=== PATIENT | male | born 1985 | race African-American/Black ===

== ENCOUNTER 2016-10-24 09:39 | Emergency (ER) | payer BC, OTHER ==
--- NOTE | 2016-10-24 11:16 | ED ---
General Adult HPI - General Chief complaint: Headache Stated complaint: head pain Time Seen by Provider: 10/24/16 10:46 Source: patient, RN notes reviewed Mode of arrival: ambulatory Limitations: no limitations - History of Present Illness Initial comments: Patient is a 31-year-old male who presents emergency room today with a chief complaint of a headache. He does admit that over the last week she's had increased nasal congestion. He states that he's had headaches 3 times now. He describes it as a throbbing type headache. States he usually lays down it goes away. States had it again yesterday after coming home from work. States he went to bed and woke up this morning still experiencing some mild throbbing with Bactroban and his woke up again and has felt better but still having slight headache. Patient does admit that he did have a postcoital headache once this week. States never had that in the past. Patient denies any other associated symptoms or complaints. Patient states not tried any medications for this. Patient denies any recent fever, chills, shortness of breath, chest pain, back pain, abdominal pain, nausea or vomiting, numbness or tingling, dysuria or hematuria, constipation or diarrhea, visual changes, or any other complaints. - Related Data Previous Rx's Medication Instructions Recorded Fluticasone Propionate [Flonase 1 - 2 spray EA NOSTRIL DAILY 5 Days 10/24/16 Allergy Relief] Allergies Allergy/AdvReac Type Severity Reaction Status Date / Time No Known Allergies Allergy Verified 10/24/16 11:12 Review of Systems ROS Statement: Those systems with pertinent positive or pertinent negative responses have been documented in the HPI. ROS Other: All systems not noted in ROS Statement are negative. Past Medical History Past Medical History: No Reported History History of Any Multi-Drug Resistant Organisms: None Reported Past Surgical History: No Surgical Hx Reported Past Psychological History: No Psychological Hx Reported Smoking Status: Current every day smoker Past Alcohol Use History: None Reported, Occasional Past Drug Use History: None Reported, Marijuana General Exam - General Exam Comments Initial Comments: General: The patient is awake and alert, in no distress, and does not appear acutely ill. Eye: Pupils are equal, round and reactive to light, extra-ocular movements are intact. No nystagmus. There is normal conjunctiva bilaterally. No signs of icterus. Ears, nose, mouth and throat: There are moist mucous membranes and no oral lesions. Mild tenderness over the frontal sinuses. Neck: The neck is supple, there is no tenderness or JVD. Cardiovascular: There is a regular rate and rhythm. No murmur, rub or gallop is appreciated. Respiratory: Lungs are clear to auscultation, respirations are non-labored, breath sounds are equal. No wheezes, stridor, rales, or rhonchi. Gastrointestinal: Soft, non-distended, non-tender abdomen without masses or organomegaly noted. There is no rebound or guarding present. No CVA tenderness. Bowel sounds are unremarkable. Musculoskeletal: Normal ROM, no tenderness. Strength 5/5. Sensation intact. Pulses equal bilaterally 2+. Neurological: A&O x 3. CN II-XII intact, There are no obvious motor or sensory deficits. Coordination appears grossly intact. Speech is normal. Skin: Skin is warm and dry and no rashes or lesions are noted. Psychiatric: Cooperative, appropriate mood & affect, normal judgment. Limitations: no limitations Course Vital Signs 10/24/16 10/24/16 10:08 10:19 Temperature 98.5 F 98.5 F Pulse Rate 64 64 Respiratory 20 20 Rate Blood Pressure 114/65 114/65 O2 Sat by Pulse 100 100 Oximetry Medical Decision Making - Medical Decision Making Options were discussed with patient with CT of the brain. At this time he does have some mild tenderness over the sinuses does have some nasal congestion. Was discussed about trying Flonase and using ibuprofen for pain. Patient states he cannot swallow pills. Advised to use [id number] children's ibuprofen with proper dosing. Patient will be started on Flonase. He is in agreement with this plan states he feels comfortable being discharged home with follow-up with family doctor return if any symptoms increase or worsen. Disposition Clinical Impression: Headache Disposition: HOME SELF-CARE Condition: Good Instructions: Acute Headache (ED) Additional Instructions: Please use medication as discussed. Please follow-up with family doctor in the next 2 days of symptoms have not improved. Please return to emergency room if the symptoms increase or worsen or for any other concerns. Prescriptions: Fluticasone Propionate [Flonase Allergy Relief] 1 - 2 spray EA NOSTRIL DAILY 5 Days Time of Disposition: 11:16
[2016-10-24 11:40] VITALS: BP 136/80; PULSE 51; RESP 15; TEMP 97.9
== END 2016-10-24 11:40 | disposition home or self-care (01) ==
LOC: EC 09:39
DX: R51 Headache (principal); R09.81 Nasal congestion; F17.200 Nicotine dependence, unspecified, uncomplicated
CPT/HCPCS: 99283

== ENCOUNTER 2016-10-29 02:34 | Emergency (ER) | payer BC, OTHER ==
[2016-10-29 02:42] VITALS: BP 141/88; PULSE 61; RESP 18; TEMP 98
[2016-10-29] MEDS ORDERED: METOCLOPRAMIDE 10 MG TAB PO STA (02:53)
[2016-10-29] MEDS ORDERED: IBUPROFEN 600 MG TAB PO STA (02:53)
[2016-10-29] MEDS ORDERED: diphenhydrAMINE 50 MG CAP PO STA (02:53)
--- NOTE | 2016-10-29 02:56 | ED ---
Headache HPI - General Chief Complaint: Headache Stated Complaint: Headache Time Seen by Provider: 10/29/16 02:50 Source: RN notes reviewed Mode of arrival: ambulatory Limitations: no limitations - History of Present Illness Initial Comments: [age] male presents to emergency department with a chief complaint of headache. Patient states his apartment headache that started tonight. Patient states he had to miss work to the headache. Patient states he did not take any medication for the headache at home. Patient denies any fever chills cough cold runny nose. Patient states is essentially light and no symptoms at this time. Patient states he was concerned due to the continued headache states that they should be evaluated. Patient does admit to a headache much like this in the past. Patient states he is not currently having any other symptoms at this time.Patient denies any recent fever, chills, shortness of breath, chest pain, back pain, abdominal pain, nausea vomiting, numbness or tingling, dysuria or hematuria, constipation or diarrhea, visual changes, or any other current symptoms. - Related Data Previous Rx's Medication Instructions Recorded Fluticasone Propionate [Flonase 1 - 2 spray EA NOSTRIL DAILY 5 Days 10/24/16 Allergy Relief] Allergies Allergy/AdvReac Type Severity Reaction Status Date / Time No Known Allergies Allergy Verified 10/24/16 11:12 Review of Systems ROS Statement: Those systems with pertinent positive or pertinent negative responses have been documented in the HPI. ROS Other: All systems not noted in ROS Statement are negative. Past Medical History Past Medical History: No Reported History History of Any Multi-Drug Resistant Organisms: None Reported Past Surgical History: No Surgical Hx Reported Past Psychological History: No Psychological Hx Reported Smoking Status: Current every day smoker Past Alcohol Use History: None Reported, Occasional Past Drug Use History: None Reported, Marijuana General Exam - General Exam Comments Initial Comments: General: The patient is awake and alert, in no distress, and does not appear acutely ill. Eye: Pupils are equal, round. extra-ocular movements are intact; there is normal conjunctiva bilaterally. No signs of icterus. Ears, nose, mouth and throat: There are moist mucous membranes and no oral lesions. Neck: The neck is supple, there is no tenderness. Cardiovascular: There is a regular rate and rhythm. No murmur, rub or gallop is appreciated. Respiratory: Lungs are clear to auscultation, respirations are non-labored, breath sounds are equal. No wheezes, stridor, rales, or rhonchi. Back: There is no tenderness to palpation in the midline. There is no obvious deformity. No rashes noted. Musculoskeletal: Normal ROM, no tenderness, There is no pedal edema. There is no calf tenderness or swelling. Sensation intact. Pulses equal bilaterally 2+. Neurological: CN II-XII intact, There are no obvious motor or sensory deficits. Coordination appears grossly intact. Speech is normal. Skin: Skin is warm and dry and no rashes or lesions are noted. Psychiatric: Cooperative, appropriate mood & affect, normal judgment. Limitations: no limitations Course Vital Signs 10/29/16 02:39 Temperature 98.0 F Pulse Rate 61 Respiratory 18 Rate Blood Pressure 141/88 O2 Sat by Pulse 100 Oximetry - Reevaluation(s) Reevaluation #1: 10/29/16 03:24 Patient states that he is feeling better at this time. Medical Decision Making - Medical Decision Making 31-year-old male presents emergency Department chief complaint of headache. pt given PO Medication patient tolerated. Patient does have improvement to his symptoms. At this time we discussed continuing home care. We discussed follow- up and return parameters. We discussed outpatient stated he understood the plan. All questions have been answered. He will be discharged. Disposition Clinical Impression: Headache Disposition: HOME SELF-CARE Condition: Stable Instructions: Acute Headache (ED) Additional Instructions: Please use medication as discussed. Please follow up with family doctor if symptoms have not improved over the next two days. Please return to the emergency room if your symptoms increase or worsen or for any other concerns. Referrals: Yo Tejeda MD [Primary Care Provider] - 1-2 days Time of Disposition: 03:24
[2016-10-29] MEDS ORDERED: ACETAMINOPHEN TAB 500 MG TAB PO STA (02:57)
== END 2016-10-29 03:28 | disposition home or self-care (01) ==
LOC: EC 02:34
DX: R51 Headache (principal); F17.200 Nicotine dependence, unspecified, uncomplicated
CPT/HCPCS: 99283

== ENCOUNTER 2017-09-15 23:29 | Emergency (ER) | payer BC, OTHER ==
[2017-09-15 23:34] VITALS: BP 135/69; PULSE 75; RESP 18; TEMP 98.5
--- NOTE | 2017-09-15 23:49 | ED ---
Nausea/Vomiting/Diarrhea HPI - General Chief complaint: Nausea/Vomiting/Diarrhea Stated complaint: Nausea/adb pain Time Seen by Provider: 09/15/17 23:36 Source: patient Mode of arrival: ambulatory Limitations: no limitations - History of Present Illness Initial comments: Patient presents with 1 episode of diarrhea that he states started after getting to work tonight. Pt states "I wasn't about to stand there on the line all-night running to the bathroom with diarrhea, so I told my boss and leaving" . Pt denies abd pain, fevers, chill, vomiting, urinary symptoms. Patient states she's had mild nausea. Patient denies suspicious food intake, denies recent travel, denies water exposure, denies recent antibiotics. Pt denies blood in stools. MD complaint: nausea, diarrhea - Related Data Previous Rx's Medication Instructions Recorded Ondansetron Odt [Zofran Odt] 4 mg PO Q8HR PRN #10 tab 09/15/17 Allergies Allergy/AdvReac Type Severity Reaction Status Date / Time No Known Allergies Allergy Verified 09/15/17 23:38 Review of Systems ROS Statement: Those systems with pertinent positive or pertinent negative responses have been documented in the HPI. Constitutional: Denies: fever, chills, weakness ENT: Denies: throat pain, congestion Respiratory: Denies: cough Cardiovascular: Denies: chest pain Endocrine: Denies: fatigue Gastrointestinal: Reports: nausea, diarrhea. Denies: abdominal pain, vomiting, constipation, hematemesis, melena, hematochezia Genitourinary: Denies: urgency, dysuria, frequency, hematuria Musculoskeletal: Denies: back pain, joint swelling, arthralgia, myalgia Skin: Denies: rash Neurological: Denies: headache Past Medical History Past Medical History: No Reported History History of Any Multi-Drug Resistant Organisms: None Reported Past Surgical History: No Surgical Hx Reported Past Psychological History: No Psychological Hx Reported Smoking Status: Former smoker Past Alcohol Use History: Occasional Past Drug Use History: Marijuana General Exam - General Exam Comments Initial Comments: Sitting up on bed legs crossed x-ray on phone. Well-appearing. No acute distress. Conversing normally. Calm, pleasant. Limitations: no limitations General appearance: alert, in no apparent distress Head exam: Present: atraumatic, normocephalic Eye exam: Present: normal appearance, PERRL, EOMI ENT exam: Present: normal oropharynx, mucous membranes moist Neck exam: Present: normal inspection Respiratory exam: Present: normal lung sounds bilaterally. Absent: respiratory distress, wheezes, rales, rhonchi, stridor Cardiovascular Exam: Present: regular rate, normal rhythm GI/Abdominal exam: Present: soft, normal bowel sounds. Absent: distended, tenderness, guarding, rebound, rigid Extremities exam: Present: normal inspection Neurological exam: Present: alert, oriented X3 Psychiatric exam: Present: normal affect, normal mood Skin exam: Present: warm, dry, intact, normal color. Absent: rash Course Vital Signs 09/15/17 23:32 Temperature 98.5 F Pulse Rate 75 Respiratory 18 Rate Blood Pressure 135/69 O2 Sat by Pulse 100 Oximetry Medical Decision Making - Medical Decision Making Patient with one episode of diarrhea when he got to work. States he left because he was afraid he had more, however he has not had any recurrence of diarrhea. Pt denies abdominal pain. No blood in stools. Discussed early onset of symptoms, need to continue to monitor. Discussed with patient unlikely to find any lab abnormalities after such a short course of illness. Patient to follow primary care physician for reevaluation. Return to ER for new or worsening symptoms including abdominal pain, fevers, not tolerating oral intake. Oral hydration during illness discussed. Patient feels comfortable not pursuing any further workup at this time. This comfortable monitoring symptoms at home. We'll give prescription of Zofran for nausea. Work note given for patient. He is very happy with plan of care. He was comfortable being discharged home. Disposition Clinical Impression: Diarrhea Disposition: HOME SELF-CARE Condition: Good Instructions: Acute Nausea and Vomiting (ED), Acute Diarrhea (ED) Additional Instructions: Follow-up with her primary care physician one to 2 days. Return to ER for new or worsening symptoms including abdominal pain, fevers, not tolerating oral intake. Prescriptions: Ondansetron Odt [Zofran Odt] 4 mg PO Q8HR PRN #10 tab PRN Reason: nausea Referrals: Yo Tejeda MD [Primary Care Provider] - 1-2 days
== END 2017-09-15 23:58 | disposition home or self-care (01) ==
LOC: EC 23:29
DX: R19.7 Diarrhea, unspecified (principal); R11.0 Nausea; Z87.891 Personal history of nicotine dependence
CPT/HCPCS: 99283

== ENCOUNTER 2018-07-31 23:02 | Emergency (ER) | payer OTHER ==
[2018-07-31] MEDS ORDERED: SODIUM CHLORIDE 0.9% 1,000 ML IV STA (23:45)
[2018-07-31] MEDS ORDERED: ONDANSETRON 4 MG/2 ML VIAL IVP STA (23:45)
--- NOTE | 2018-07-31 23:45 | ED ---
Abdominal Pain HPI - General Chief Complaint: Abdominal Pain Stated Complaint: Vomiting Time Seen by Provider: 07/31/18 23:44 Source: patient Mode of arrival: ambulatory Limitations: no limitations - History of Present Illness Initial Comments: Jaylen is a previously healthy 33-year-old male who presents the emergency department today for evaluation of 2 days of epigastric cramping nausea and vomiting. Patient reports he thinks he ate something bad a couple of days ago. He reports he's had persistent nausea and decreased appetite for the past 2 days. He reports he's had intermittent episodes of nonbloody nonbilious emesis. He reports an episode of emesis on his way to work today and his fiscal manager told him he should come be evaluated. Patient reports he has been able to eat and drink, though not nearly as much as usual. He does report trying to eat dinner this evening and eating some pork chops and rice but reports he was only able tolerate small portions and continued to feel nauseated. Patient has no history of any GI pathology. No history of ulcers or irritable or inflammatory bowel disease. He has history of gallstones or pancreatitis. He denies any recent alcohol ingestions. Any recent trauma. He denies any previous surgeries. - Related Data Previous Rx's Medication Instructions Recorded Ondansetron Odt [Zofran Odt] 4 mg PO Q8HR PRN #10 tab 09/15/17 Allergies Allergy/AdvReac Type Severity Reaction Status Date / Time No Known Allergies Allergy Verified 07/31/18 23:37 Review of Systems ROS Statement: Those systems with pertinent positive or pertinent negative responses have been documented in the HPI. ROS Other: All systems not noted in ROS Statement are negative. Past Medical History Past Medical History: No Reported History History of Any Multi-Drug Resistant Organisms: None Reported Past Surgical History: No Surgical Hx Reported Past Psychological History: No Psychological Hx Reported Smoking Status: Current every day smoker Past Alcohol Use History: Occasional Past Drug Use History: Marijuana General Exam - General Exam Comments Initial Comments: Physical Exam GENERAL: Patient is well-developed and well-nourished. Patient is nontoxic and well- hydrated and is in no distress. HENT: Normocephalic, Atraumatic. EYES: PERRL, EOMI PULMONARY: Unlabored respirations. No audible rales rhonchi or wheezing was noted. CARDIOVASCULAR: There is a regular rate and rhythm without any murmurs gallops or rubs. ABDOMEN: Soft and nontender with normal bowel sounds. SKIN: Skin is clear with no lesions or rashes and otherwise unremarkable. : Deferred NEUROLOGIC: Patient is alert and oriented x3. Moving all extremities spontaneously MUSCULOSKELETAL: Normal extremities with adequate strength and full range of motion. No lower extremity swelling or edema. No calf tenderness. PSYCHIATRIC: Normal psychiatric evaluation. Limitations: no limitations Limitations: no limitations Course Vital Signs 07/31/18 08/01/18 23:35 00:07 Temperature 99.1 F 98.1 F Pulse Rate 73 63 Respiratory 18 16 Rate Blood Pressure 114/59 113/71 O2 Sat by Pulse 98 98 Oximetry Medical Decision Making - Medical Decision Making The patient was seen and evaluated, history is obtained from the patient and review of medical records Very well-appearing hydrated 33-year-old gentleman 2 days of nausea and crampy epigastric abdominal pain Labs and IV fluids and Zofran were ordered Labs were unremarkable Patient resting comfortably throughout his ED stay. At this time if the patient stable for discharge home. Zofran ODT will be provided. Return parameters discussed all questions pertaining care answered patient discharged home in stable condition. - Lab Data Result diagrams: 07/31/18 00:01 07/31/18 00:01 Lab Results 07/31/18 07/31/18 07/31/18 Range/Units 00:01 00:01 23:39 WBC 14.0 H (3.8-10.6) k/uL RBC 5.59 (4.30-5.90) m/uL Hgb 15.0 (13.0-17.5) gm/dL Hct 45.2 (39.0-53.0) % MCV 80.8 (80.0-100.0) fL MCH 26.8 (25.0-35.0) pg MCHC 33.2 (31.0-37.0) g/dL RDW 12.5 (11.5-15.5) % Plt Count 220 (150-450) k/uL Neutrophils % 80 % Lymphocytes % 13 % Monocytes % 4 % Eosinophils % 2 % Basophils % 0 % Neutrophils # 11.2 H (1.3-7.7) k/uL Lymphocytes # 1.8 (1.0-4.8) k/uL Monocytes # 0.6 (0-1.0) k/uL Eosinophils # 0.2 (0-0.7) k/uL Basophils # 0.1 (0-0.2) k/uL Sodium 140 (137-145) mmol/L Potassium 4.1 (3.5-5.1) mmol/L Chloride 103 (98-107) mmol/L Carbon Dioxide 29 (22-30) mmol/L Anion Gap 8 mmol/L BUN 15 (9-20) mg/dL Creatinine 1.01 (0.66-1.25) mg/dL Est GFR (CKD-EPI)AfAm >90 (>60 ml/min/1.73 sqM) Est GFR (CKD-EPI)NonAf >90 (>60 ml/min/1.73 sqM) Glucose 99 (74-99) mg/dL Calcium 9.3 (8.4-10.2) mg/dL Total Bilirubin 0.5 (0.2-1.3) mg/dL AST 17 (17-59) U/L ALT 19 L (21-72) U/L Alkaline Phosphatase 59 (38-126) U/L Total Protein 7.5 (6.3-8.2) g/dL Albumin 4.2 (3.5-5.0) g/dL Amylase 53 (30-110) U/L Lipase 114 (23-300) U/L Urine Color Yellow Urine Appearance Clear (Clear) Urine pH 6.5 (5.0-8.0) Ur Specific [place] 1.014 (1.001-1.035) Urine Protein Negative (Negative) Urine Glucose (UA) Negative (Negative) Urine Ketones Negative (Negative) Urine Blood Negative (Negative) Urine Nitrite Negative (Negative) Urine Bilirubin Negative (Negative) Urine Urobilinogen 8.0 (<2.0) mg/dL Ur Leukocyte Esterase Trace H (Negative) Urine RBC 1 (0-5) /hpf Urine WBC 1 (0-5) /hpf Ur Squamous Epith Cells <1 (0-4) /hpf Urine Mucus Rare H (None) /hpf Disposition Clinical Impression: Nausea & vomiting Disposition: HOME SELF-CARE Condition: Good Instructions: Acute Nausea and Vomiting (ED) Is patient prescribed a controlled substance at d/c from ED?: No Referrals: Yo Tejeda MD [Primary Care Provider] - 1-2 days
[2018-08-01 00:01] LABS: Appearance,Urine Clear (Clear); Bilirubin,Urine Negative (Negative); Blood,Urine Negative (Negative); Color,Urine Yellow; Glucose,Urine (UA) Negative (Negative); Ketones,Urine Negative (Negative); Leukocyte Esterase,Urine Trace (Negative); Mucus,Urine Rare /hpf; Nitrite,Urine Negative (Negative); PH, Urine 6.5 (5.0-8.0); Protein,Urine Negative (Negative); RBC,Urine 1 /hpf (0-5); Specific Gravity,Urine 1.014 (1.001-1.035); Squamous Epithelial Cell,Urine <1 /hpf (0-4); WBC,Urine 1 /hpf (0-5)
[2018-08-01 00:08] VITALS: TEMP 98.1
[2018-08-01 00:13] LABS: Basophils # (A) 0.1 k/uL (0-0.2); Basophils % (A) 0 %; Eosinophils # (A) 0.2 k/uL (0-0.7); Eosinophils % (A) 2 %; HCT 45.2 % (39.0-53.0); Lymphocytes # (A) 1.8 k/uL (1.0-4.8); Lymphocytes % (A) 13 %; MCH 26.8 pg (25.0-35.0); MCHC 33.2 g/dL (31.0-37.0); MCV 80.8 fL (80.0-100.0); Mean Platelet Volume 7.4; Monocytes # (A) 0.6 k/uL (0-1.0); Monocytes % (A) 4 %; Neutrophils # (A) 11.2 k/uL (1.3-7.7); Neutrophils % (A) 80 %; Platelet Count 220 k/uL (150-450); RBC 5.59 m/uL (4.30-5.90); RDW 12.5 % (11.5-15.5)
[2018-08-01 00:22] LABS: ALT 19 U/L (21-72); AST 17 U/L (17-59); Albumin 4.2 g/dL (3.5-5.0); Alkaline Phosphatase 59 U/L (38-126); Amylase 53 U/L (30-110); Anion Gap 8 mmol/L; Blood Urea Nitrogen 15 mg/dL (9-20); Calcium 9.3 mg/dL (8.4-10.2); Carbon Dioxide 29 mmol/L (22-30); Chloride 103 mmol/L (98-107); Glucose 99 mg/dL (74-99); Lipase 114 U/L (23-300); Potassium 4.1 mmol/L (3.5-5.1); Sodium 140 mmol/L (137-145); Total Bilirubin 0.5 mg/dL (0.2-1.3); Total Protein 7.5 g/dL (6.3-8.2)
--- NOTE | 2018-08-01 00:37 | XR ---
EXAMINATION TYPE: XR KUB DATE OF EXAM: 08/01/2018 COMPARISON: NONE HISTORY: Abdominal pain TECHNIQUE: 2 views upright FINDINGS: There is no sign of intestinal obstruction or pneumoperitoneum. Fecal pattern is normal. Zaira ng bases are clear. There are no pathologic calcifications. IMPRESSION: Nonacute abdomen.
[2018-08-01] MEDS ORDERED: ONDANSETRON 4 MG ODT STARTER PACK 2 TAB BTL PO STA (00:40)
[2018-08-01 01:36] VITALS: BP 117/73; PULSE 73; RESP 18
== END 2018-08-01 01:35 | disposition home or self-care (01) ==
LOC: EC 23:02
DX: R11.2 Nausea with vomiting, unspecified (principal); R10.13 Epigastric pain; F17.200 Nicotine dependence, unspecified, uncomplicated; Z87.19 Personal history of other diseases of the digestive system
CPT/HCPCS: 36415; 80053; 82150; 83690; 85025; 81001; 74018; 99284; 96374; 96361; J2405; S0119

== ENCOUNTER → 2018-09-01 | Outpatient (CLI) | payer BC ==
[2018-09-01 14:37] VITALS: BP 115/68; PULSE 108; RESP 16; TEMP 98.4
== END | disposition home or self-care (01) ==
LOC: PROCWHC3 14:22
PROVIDERS: ATTEND Surgery Plastic and Reconstructive Surgery
DX: K63.1 Perforation of intestine (nontraumatic) (principal)
CPT/HCPCS: 99213

== ENCOUNTER → 2018-11-17 | Outpatient (CLI) | payer BC ==
[2018-11-17 10:42] LABS: HCT 46.5 % (39.0-53.0); HGB 15.4 gm/dL (13.0-17.5); MCH 27.6 pg (25.0-35.0); MCHC 33.2 g/dL (31.0-37.0); MCV 83.2 fL (80.0-100.0); Mean Platelet Volume 7.8; Platelet Count 218 k/uL (150-450); RBC 5.59 m/uL (4.30-5.90); RDW 13.9 % (11.5-15.5); WBC 7.3 k/uL (3.8-10.6)
[2018-11-17 12:37] LABS: Erythrocyte Sedimentation Rate 4 mm/hr (0-15)
[2018-11-17 17:53] LABS: Albumin 4.4 g/dL (3.80-4.90); Anion Gap 2.1 mmol/L (4.00-12.00); C Reactive Protein 1.7 mg/dL (0.0-0.8); Calcium 9.5 mg/dL (8.7-10.3); Carbon Dioxide 33.9 mmol/L (21.6-31.8); Globulin 2.2 g/dL (1.6-3.3); Potassium 4.4 mmol/L (3.5-5.5); Total Bilirubin 0.3 mg/dL (0.3-1.2); Total Protein 6.6 g/dL (6.2-8.2)
[2018-11-17 18:41] LABS: Folate, Serum 6.1 ng/mL
[2018-11-17 18:49] LABS: Vitamin D 25 Hydroxy 9.2 ng/mL (30.0-100.0)
[2018-11-17 19:22] LABS: Vitamin B12 >4000.0 pg/mL (211-911)
== END | disposition home or self-care (01) ==
LOC: LABWHC1 09:08
PROVIDERS: ATTEND Internal Medicine
DX: K50.812 Crohn's disease of both small and large intestine with intestinal obstruction (principal)
CPT/HCPCS: 36415; 80053; 82306; 82607; 82746; 85027; 85652; 86140

== ENCOUNTER → 2018-12-28 | Day surgery (SDC) | payer BC ==
[2018-12-24 11:31] VITALS: BMI 29.0
--- NOTE | 2018-12-27 14:28 | P.GSHP ---
History of Present Illness H&P Date: 12/28/18 CHIEF COMPLAINT: Crohn's disease of the colon HISTORY OF PRESENT ILLNESS: The patient is a 33-year-old male who presents for Crohn's disease of the colon. Lower endoscopy was offered for further evaluation and management. PAST MEDICAL HISTORY: Please see list. PAST SURGICAL HISTORY: Please see list. MEDICATIONS: Please see list. ALLERGIES: Please see list. SOCIAL HISTORY: Takes medicinal marijuana FAMILY HISTORY: Has Crohn disease or ulcerative colitis. REVIEW OF ORGAN SYSTEMS: CONSTITUTIONAL: No reports of fevers or chills. PHYSICAL EXAM: VITAL SIGNS: Stable GENERAL: Well-developed pleasant in no acute distress. HEENT: No scleral icterus. Extraocular movements grossly intact. Moist buccal mucosa. NECK: Supple without lymphadenopathy. CHEST: Unlabored respirations. Equal bilateral excursions. CARDIOVASCULAR: Regular rate and rhythm. Distal 2+ pulses. ABDOMEN: Soft, nontender, nondistended. MUSCULOSKELETAL: No clubbing, cyanosis, or edema. ASSESSMENT: 1. Crohn's disease of the colon PLAN: 1. 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 pt stated has never been able to take pills even in applesauce or pudding even if crushed" crohns disease, colostomy History of Any Multi-Drug Resistant Organisms: None Reported Past Surgical History: Bowel Resection Additional Past Surgical History / Comment(s): colostomy Past Anesthesia/Blood Transfusion Reactions: No Reported Reaction Additional Past Anesthesia/Blood Transfusion Reaction / Comment(s): pt stated has never had anesthesia Smoking Status: Never smoker - Past Family History Mother Family Medical History: No Reported History Father Additional Family Medical History / Comment(s): djd-hip Medications and Allergies Home Medications Medication Instructions Recorded Confirmed Type Cholecalciferol (Vitamin D3) 1,000 unit PO DAILY 12/03/18 12/24/18 History [Vitamin D3] Allergies Allergy/AdvReac Type Severity Reaction Status Date / Time No Known Allergies Allergy Verified 12/24/18 11:22
[~2018-12-28] MED LIST: LACTATED RINGERS 1,000 ML IV SCH; LIDOCAINE 1% 20 ML VIAL (10MG/ML) FOR IV START SQ ONE; LIDOCAINE 1% INJ 10MG/ML (20 ML MDV) ONE; PROPOFOL 10 MG/ML 20 ML VIAL IV ONE
[2018-12-28 13:38] VITALS: TEMP 97.6
--- NOTE | 2018-12-28 15:16 | P.PCN ---
Date of Procedure: 12/28/18 Description of Procedure: PREOPERATIVE DIAGNOSIS: Crohn's disease with perforated terminal ileum and colon Descending colostomy status POSTOPERATIVE DIAGNOSIS: Crohn's disease with perforated terminal ileum and colon Descending colostomy status OPERATION: Flexible sigmoidoscopy SURGEON: Maryellen Hoff MD. ANESTHESIA: MAC. INDICATIONS: The patient is a 33-year-old male who presented with peritonitis included perforated small bowel and colon requiring a colostomy. No full prior colonoscopy had been performed for recent diagnosis of Crohn's disease. Colonoscopy was advised. Benefits and risks were described and informed consent was obtained. DESCRIPTION OF PROCEDURE: The patient was transitioned in the left lateral decubitus position where along the anus, no palpable tumors were identified. The Olympus colonoscope was advanced via the rectum to the devitalized rectal stump at 20 cm. The scope was removed. Mild colitis was identified. Next the patient was laid supine. The osteotomy appliance was opened. A digital exam of the stoma demonstrated solid stool at which point the col onoscopy portion was discontinued. The patient had tolerated the procedure well. Withdrawal time was over 6 minutes. FINDINGS: Rectal stump 20 cm with mild colitis. Solid stool along the colon for which colonoscopy discontinued. RECOMMENDATIONS: Will need completion colonoscopy prior to reversal of colostomy. Plan - Discharge Summary Discharge Rx Participant: Yes New Discharge Prescriptions: No Action Cholecalciferol (Vitamin D3) [Vitamin D3] 1,000 unit PO DAILY Discharge Medication List Cholecalciferol (Vitamin D3) [Vitamin D3] 1,000 unit PO DAILY 12/03/18 [History] Follow up Appointment(s)/Referral(s): Maryellen Hoff MD [STAFF PHYSICIAN] - 01/12/19 Patient Instructions/Handouts: Colostomy Care (DC) Activity/Diet/Wound Care/Special Instructions: Will need full Suprep for colonoscopy and re-schedule Discharge Disposition: HOME SELF-CARE
[2018-12-28 15:17] VITALS: PULSE 75
[2018-12-28 15:37] VITALS: BP 122/68; RESP 20
== END | disposition home or self-care (01) ==
LOC: ORWHC2ENDO 13:08
PROVIDERS: ATTEND Surgery Plastic and Reconstructive Surgery
DX: K50.90 Crohn's disease, unspecified, without complications (principal); Z90.49 Acquired absence of other specified parts of digestive tract
CPT/HCPCS: 45330; J2001; J2704; 44388

== ENCOUNTER → 2019-02-22 | Outpatient (CLI) | payer BC ==
[2019-02-22 12:20] LABS: HCT 44.9 % (39.0-53.0); MCH 28.5 pg (25.0-35.0); MCHC 33.5 g/dL (31.0-37.0); MCV 85.1 fL (80.0-100.0); Mean Platelet Volume 7.8; Platelet Count 223 k/uL (150-450); RBC 5.27 m/uL (4.30-5.90); RDW 14.5 % (11.5-15.5); WBC 7.3 k/uL (3.8-10.6)
[2019-02-22 12:44] LABS: Potassium 4.1 mmol/L (3.5-5.1)
== END | disposition home or self-care (01) ==
LOC: LABWHC1 10:56
PROVIDERS: ATTEND Surgery Plastic and Reconstructive Surgery
DX: Z01.812 Encounter for preprocedural laboratory examination (principal)
CPT/HCPCS: 80051; 85027

== ENCOUNTER 2019-02-25 06:49 | Inpatient (IN) | payer BC ==
[~2019-02-25 06:49] MED LIST changes: -LACTATED RINGERS 1,000 ML IV SCH; +LIDOCAINE 1% 20 ML VIAL (10MG/ML) FOR IV START INTRADERMA PRN; -LIDOCAINE 1% 20 ML VIAL (10MG/ML) FOR IV START SQ ONE; -LIDOCAINE 1% INJ 10MG/ML (20 ML MDV) ONE; -PROPOFOL 10 MG/ML 20 ML VIAL IV ONE
[2019-02-25] MEDS: LACTATED RINGERS 1,000 ML IV SCH (07:14)
[2019-02-25] MEDS ORDERED: LIDOCAINE 1% INJ 10MG/ML (20 ML MDV) ONE (07:24)
[2019-02-25] MEDS ORDERED: PROPOFOL 10 MG/ML 20 ML VIAL IV ONE (07:24)
--- NOTE | 2019-02-25 07:27 | P.GSHP ---
History of Present Illness H&P Date: 02/25/19 CHIEF COMPLAINT: Crohn's disease HISTORY OF PRESENT ILLNESS: The patient is a 34-year-old male who presents with history of Crohn's disease. Lower endoscopy was offered for further evaluation and management. PAST MEDICAL HISTORY: Please see list. PAST SURGICAL HISTORY: Please see list. MEDICATIONS: Please see list. ALLERGIES: Please see list. SOCIAL HISTORY: No illicit drug use FAMILY HISTORY: No reports of Crohn disease or ulcerative colitis. REVIEW OF ORGAN SYSTEMS: CONSTITUTIONAL: No reports of fevers or chills. PHYSICAL EXAM: VITAL SIGNS: Stable GENERAL: Well-developed pleasant male in no acute distress. HEENT: No scleral icterus. Extraocular movements grossly intact. Moist buccal mucosa. NECK: Supple without lymphadenopathy. CHEST: Unlabored respirations. Equal bilateral excursions. CARDIOVASCULAR: Regular rate and rhythm. Distal 2+ pulses. ABDOMEN: Soft, nontender, nondistended. Ostomy pink, patent and functioning MUSCULOSKELETAL: No clubbing, cyanosis, or edema. ASSESSMENT: 1. Crohn's disease with small bowel and large bowel perforation status post ostomy PLAN: 1. 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 2 children. Tobacco use. Works for a local [employer]. No experience. No international travel. Did not relate to pets in the home - Past Family History Mother Family Medical History: No Reported History Father Additional Family Medical History / Comment(s): djd-hip Medications and Allergies Home Medications Medication Instructions Recorded Confirmed Type Cholecalciferol (Vitamin D3) 1,000 unit PO DAILY 12/03/18 02/25/19 History [Vitamin D3] Allergies Allergy/AdvReac Type Severity Reaction Status Date / Time No Known Allergies Allergy Verified 02/19/19 09:56 Surgical - Exam Vital Signs Temp Pulse Resp BP Pulse Ox 97.6 F 64 17 126/80 100 02/25/19 07:08 02/25/19 07:08 02/25/19 07:08 02/25/19 07:08 02/25/19 07:08
--- NOTE | 2019-02-25 07:51 | P.PCN ---
Date of Procedure: 02/25/19 Description of Procedure: PREOPERATIVE DIAGNOSIS: History of complicated perforated Crohn's disease with colostomy creation and small bowel resection POSTOPERATIVE DIAGNOSIS: History of complicated perforated Crohn's disease with colostomy creation and small bowel resection OPERATION: Colonoscopy through descending colostomy to ileocolic anastomosis with cold forceps biopsies of the ileum Flexible sigmoidoscopy for devitalized rectum SURGEON: Maryellen Hoff MD. ANESTHESIA: MAC. INDICATIONS: The patient is a 34-year-old male who presents with history of previous perforated Crohn's disease of the colon and intestine with small bowel resection and colostomy creation over 7 months ago. He pre sents for assessment of his Crohn's prior to colostomy reversal. Benefits and risks were described and informed consent was obtained. DESCRIPTION OF PROCEDURE: The patient had undergone Suprep. He had been brought into the operating room and laid supine. The stoma appliance was removed. An Olympus colonoscope was advanced through the descending colostomy to the ileocolic anastomosis. The prep was fair with residual liquid stool. Inflammation of the ileum was identified with cold biopsy forceps obtained. No scattered diverticulosis was encountered. No colonic polyps were found. No evidence of focal colitis was found. The colon was desufflated. The patient was transitioned in the left lateral decubitus position where along the anus, no palpable tumors were identified. Residual mucus stool was evacuated. The scope was advanced to the resection of the rectum was terminated at 20 cm from the anal verge. The scope was removed with desufflation of the GI tract. The patient had tolerated the procedure well. Withdrawal time was over 6 minutes. FINDINGS: Aronchik preparation quality scale 3 (1-5) No arteriovenous malformations. No adenomatous polyps. Inflammation of the ileum was identified with cold biopsy forceps obtained. No scattered diverticulosis was encountered. No colonic polyps were found. Rectal stump length of 20 cm from the anal verge RECOMMENDATIONS: May proceed with colostomy reversal however with additional colonic prep
[2019-02-25] MEDS ORDERED: Antibiotics per Pharmacy 1 EACH MISC MISCELLANE PRN (07:52)
[2019-02-25 08:40] LABS: Glucose,Whole Blood 85 mg/dL (75-99)
[2019-02-25] MEDS ORDERED: POLYETHYLENE GLYCOL LYTES SOLN 4,000 ML SOLN.RECON PO ONE (10:00)
[2019-02-25 12:13] LABS: Glucose,Whole Blood 84 mg/dL (75-99)
[2019-02-25] MEDS: D5-0.45% NACL WITH KCL 20MEQ/L 1,000 ML IV SCH (13:25)
[2019-02-25] MEDS: NEOMYCIN 500 MG TAB PO SCH ×3 (14:43→23:54)
[2019-02-25] MEDS: metroNIDAZOLE 500 MG TAB PO SCH ×3 (14:45→23:31)
[2019-02-25] MEDS ORDERED: TEMAZEPAM 15 MG CAP PO ONE (21:00)
[2019-02-26] MEDS ORDERED: metroNIDAZOLE-NS PMX 500 MG in SALINE 1 100ML.BAG IVPB ONE (05:00)
[2019-02-26] MEDS: D5-0.45% NACL WITH KCL 20MEQ/L 1,000 ML IV SCH ×3 (05:22→15:09)
[2019-02-26] MEDS ORDERED: ACETAMINOPHEN TAB 500 MG TAB PO ONE (06:00)
[2019-02-26] MEDS ORDERED: ALVIMOPAN 12 MG CAPSULE PO ONE (06:00)
[2019-02-26 07:15] LABS: Basophils % (A) 1 %; Eosinophils # (A) 0.2 k/uL (0-0.7); Eosinophils % (A) 2 %; HCT 46.4 % (39.0-53.0); HGB 15.1 gm/dL (13.0-17.5); Lymphocytes # (A) 1.4 k/uL (1.0-4.8); Lymphocytes % (A) 18 %; MCH 27.6 pg (25.0-35.0); MCHC 32.6 g/dL (31.0-37.0); MCV 84.7 fL (80.0-100.0); Mean Platelet Volume 7.5; Monocytes # (A) 0.6 k/uL (0-1.0); Monocytes % (A) 7 %; Neutrophils # (A) 5.7 k/uL (1.3-7.7); Neutrophils % (A) 72 %; Platelet Count 209 k/uL (150-450); RBC 5.48 m/uL (4.30-5.90); RDW 13.1 % (11.5-15.5)
[2019-02-26 07:38] LABS: ALT 20 U/L (21-72); AST 20 U/L (17-59); African American GFR (CKD) >90 (>60 ml/min/1.73 sqM); Alkaline Phosphatase 55 U/L (38-126); Anion Gap 6 mmol/L; Blood Urea Nitrogen 8 mg/dL (9-20); Calcium 9.3 mg/dL (8.4-10.2); Carbon Dioxide 29 mmol/L (22-30); Chloride 104 mmol/L (98-107); Glucose 102 mg/dL (74-99); Potassium 4.4 mmol/L (3.5-5.1); Sodium 139 mmol/L (137-145); Total Bilirubin 1.6 mg/dL (0.2-1.3); Total Protein 6.8 g/dL (6.3-8.2)
[2019-02-26] MEDS: LACTATED RINGERS 1,000 ML IV SCH (08:12)
[2019-02-26] MEDS: HEPARIN SODIUM,PORCINE 5,000 UNIT/ML 1 ML VIAL SQ ONE ×2 (09:14→12:12)
[2019-02-26] MEDS ORDERED: IV FLUID CONTINUATION 1,000 ML IV ONE (11:25)
[2019-02-26] MEDS ORDERED: MIDAZOLAM (PF) 2 MG/2 ML VIAL IV ONE (11:49)
[2019-02-26] MEDS ORDERED: fentaNYL (PF) 50 MCG/ML 2 ML AMP IV ONE (11:49)
[2019-02-26] MEDS ORDERED: DEXAMETHASONE SOD PHOSPHATE 10 MG/ML 1 ML VIAL IV ONE (12:05)
[2019-02-26] MEDS ORDERED: ONDANSETRON 4 MG/2 ML VIAL IVP ONE (12:05)
[2019-02-26] MEDS ORDERED: ACETAMINOPHEN IV (For NPO) 1,000 MG/100 ML VIAL IVPB ONE (12:41)
[2019-02-26] MEDS ORDERED: PROPOFOL 10 MG/ML 20 ML VIAL IV ONE (13:34)
[2019-02-26] MEDS ORDERED: LIDOCAINE 1% INJ 10MG/ML (20 ML MDV) ONE (13:34)
[2019-02-26] MEDS ORDERED: ROCURONIUM BROMIDE 10 MG/ML 10 ML VIAL IV ONE (13:34)
[2019-02-26] MEDS ORDERED: fentaNYL (PF) 50 MCG/ML 2 ML AMP ONE (13:34)
[2019-02-26] MEDS ORDERED: GLYCOPYRROLATE 0.2 MG/ML 2 ML VIAL ONE (13:34)
[2019-02-26] MEDS ORDERED: MIDAZOLAM 2 MG/2 ML VIAL ONE (13:34)
[2019-02-26] MEDS ORDERED: NEOSTIGMINE 1 MG/ML 10 ML VIAL ONE (13:34)
[2019-02-26] MEDS ORDERED: ROPIVACAINE 250 MG, HYDROMORPHONE (PF) 5 MG in SODIUM CHLORIDE 0.9% 200 ML EPIDURAL PRN (14:14)
[2019-02-26] MEDS ORDERED: NALOXONE 0.4 MG/ML 1 ML VIAL IV PRN (14:14)
[2019-02-26] MEDS ORDERED: LACTATED RINGERS 1,000 ML IV ONE ×2 (14:19→17:18)
--- NOTE | 2019-02-26 18:14 | P.HPADDEND ---
H&P Addendum H&P Addendum Date: 02/26/19 Patient presented to the hospital with history of ostomy secondary to multiple perforated small bowel included large bowel from Crohn's disease over 6 months ago. He had a lower endoscopy yesterday to evaluate the rectum and colon prior to reversal. Moderate stool was still found hence additional bowel prep was performed. Today he is doing well and completed additional bowel prep. He will undergo colostomy reversal today. All benefits and risks including perioperative and postoperative care described to him and his family as well. Patient wished to proceed with colostomy reversal.
--- NOTE | 2019-02-26 18:23 | P.OP ---
Date of Procedure: 02/26/19 Description of Procedure: Date of Procedure: 02/26/19 Preoperative Diagnosis: 1. History of perforated small bowel and colon secondary to Crohn's disease with descending colostomy creation 2. Previous history of sepsis secondary to perforated small bowel and colon. Postoperative Diagnosis: 1. History of perforated small bowel and colon secondary to Crohn's disease with descending colostomy creation 2. Previous history of sepsis secondary to perforated small bowel and colon. 3. Peritoneal adhesions Procedure(s) Performed: 1. Open lower anterior resection with descending colostomy reversal including sigmoid colectomy 2. Extensive lysis of adhesions over 1 hour 3. Application of PREVENA incisional length wound VAC system, universal 4. Placement of MIRI drain left lateral pelvis Anesthesia: GETA, epidural Surgeon: Maryellen Hoff Estimated Blood Loss (ml): 50 Pathology: other (#1 anastomosis #2 sigmoid colon #3 ostomy) Condition: stable Disposition: floor Operative Findings: 1. Moderately thickened proximal rectal stump from prior area of sigmoid colon perforation 2. Low anterior resection performed for resection of persistently inflamed proximal rectal stump 3. Thin fibrinous adhesions all lysed of the small bowel 4. No recurrent right inguinal hernia 5. Small bowel distal jejunum to proximal rectal stump fistula resected 6. Tubular structure along the left pelvis without peristalsis tagged with 4-0 Prolene 7. Urinary output post procedure with excellent urine output 8. Intraoperative sigmoidoscopy demonstrates intact low rectal anastomosis using EEA 29 mm with patient passing both flatus and stool immediately and with imaging obtained 9. Sigmoidoscopy negative for anastomotic leak 10. Placement of #19 MIRI drain via right abdominal wall anterior to colorectal anastomosis and lateral to left deep pelvis 11. Application of universal incisional wound VAC system INDICATIONS: The patient is a 34-year-old male with history perforated sigmoid colon including terminal ileum from Crohn's disease. He had severe sepsis. He had a prolonged postoperative course over 6 months ago. Now he presents for colostomy reversal. He underwent an enhanced colon recovery program. Benefits and risks of surgical intervention were described in detail. Informed consent was obtained. DESCRIPTION: The patient was brought to the operating room. Epidural was placed per anesthesia. After general induction, a Andino catheter was placed. The abdomen was prepped and draped in standard sterile fashion. Ioban draping was also placed. A 4 x 4 was used to cover the colostomy site. Prior to incision, a timeout protocol was confirmed with surgical team regarding patient's name including procedures to be performed. Preoperative medications were confirmed. Attention was brought to the abdomen whereby a well healed midline incision was encountered. Next, a #10 blade was used to enter along the epigastrium and extended down to the pubis. Carefully the abdomen was entered using electro- Bovie cautery. The greater omentum was adhered to the abdominal wall. Adhesions were addressed with a combination of blunt dissection with minimal electro-Bovie cautery. Interloop adhesions were similarly addressed using Metzenbaum scissors. A fistula of the distal jejunum to the rectal stump was identified and divided using vessel sealer. All adhesions were addressed from the ligament of Treitz to the ileocolic anastomosis. No recurrent right inguinal hernia was identified. Extensive lysis adhesions were performed for over 2 hours. The small bowel was found adherent to the deep pe lvis and remnant sigmoid colon which was also divided. No enterotomies occurred. Next, the rectal stump was palpated. I went to the foot of the bed to perform an intraoperative flexible sigmoidos copy and confirm the length of the rectal stump prior to proceed with takedown of the colostomy. Length of rectal stump was 18 to 20 cm was confirmed. I re-scrubbed into the case. Attention is now brought to the colostomy site where #10 blade was used to incise around the colostomy into the subcutaneous tissue. A Bovie cautery was used to circumferentially dissect the ostomy to the fascia. Army-Lampasas retractors were used to provide exposure. From within the abdomen, the colostomy was carefully dissected free from the abdominal wall and delivered into the abdomen. The left ureter was identified crossing the iliacs. A seperate tubular structure along the left pelvis without peristalsis was found and tagged with 4-0 Prolene. Sizers were placed along the colostomy site of 25-mm to 29-mm. Similarly, the rectum was probed using sizers. Highly redundant and edematous proximal rectal stump was confirmed and excised using Contour Stapler. As 25-mm was not available, a 29 mm ILS anvil was placed along the proximal colostomy site and closed using stapler. The anvil and needle was brought through the middle of the staple line. The stapler and needle was deployed via the rectal stump and fired for 1 minute after closure. The donuts were inspected and intact. A round #19 MIRI drain was placed anterior to the staple line and exited via the right lower abdomen. A drain stitch of 2-0 nylon was placed with bulb suction. Hemostasis was checked. The colostomy site was oversewn using 0-Vicryl. The abdomen was closed using double-stranded 0 PDS. Along the skin site of the col ostomy, the wound was irrigated using dilute hydrogen peroxide. 0-Vicryl was used for closure of the fascia from the subcutaneous portion. The abdomen was inspected for hemostasis and closed using 2 sutures of double- stranded 0 PDS from inferiorly and superiorly. The skin was cleansed and the Ioban draping was removed. PREVENA wound VAC incisional length universal system was placed. An Optifoam small square dressing was placed over the drain site. The colostomy site was closed transversely using skin tatum. A customizable Prevena wound VAC system was placed over the skin colostomy site and at the midline as it was closed transversely. The apparatus was set to suction. At the end of the procedure, needle, sponge, and instrument count had been verified correct by the rn neurosurgical. The patient was sent to the postanesthesia care unit in stable condition. Intraoperative findings were described to the patient's family.
[2019-02-26] MEDS ORDERED: HYDROmorphone 1 MG/ML 1 ML SYRINGE IVP PRN (21:52)
[2019-02-26] MEDS ORDERED: SODIUM CHLORIDE 0.9% 2,000 ML IV ONE (22:16)
[2019-02-26] MEDS: ONDANSETRON 4 MG/2 ML VIAL IVP PRN (22:43)
[2019-02-27] MEDS: metroNIDAZOLE-NS PMX 500 MG in SALINE 1 100ML.BAG IVPB SCH ×3 (01:11→15:27)
[2019-02-27] MEDS: LACTATED RINGERS 1,000 ML IV SCH (03:02)
[2019-02-27] MEDS: D5-0.45% NACL WITH KCL 20MEQ/L 1,000 ML IV SCH ×4 (03:59→23:27)
[2019-02-27 07:29] LABS: Basophils % (A) 0 %; Eosinophils % (A) 0 %; HCT 41.5 % (39.0-53.0); Lymphocytes # (A) 0.8 k/uL (1.0-4.8); Lymphocytes % (A) 7 %; MCH 28.1 pg (25.0-35.0); MCHC 33.7 g/dL (31.0-37.0); MCV 83.6 fL (80.0-100.0); Mean Platelet Volume 7.4; Monocytes # (A) 0.6 k/uL (0-1.0); Monocytes % (A) 6 %; Neutrophils # (A) 9.8 k/uL (1.3-7.7); Neutrophils % (A) 86 %; Platelet Count 166 k/uL (150-450); RBC 4.96 m/uL (4.30-5.90); RDW 12.9 % (11.5-15.5); WBC 11.4 k/uL (3.8-10.6)
--- NOTE | 2019-02-27 08:49 | P.PN ---
Progress Note - Text Progress Note Date: 02/27/19 The patient's postoperative day 1 for reversal of colostomy. He appears to be doing well. He has no significant abdominal pain. On exam his vital signs are stable. Abdomen soft. Incision site is clean dry tach. Patient will remain on clear liquid diet.
[2019-02-27] MEDS: ALVIMOPAN 12 MG CAPSULE PO SCH ×2 (09:22→20:54)
[2019-02-27] MEDS: ONDANSETRON 4 MG/2 ML VIAL IVP PRN (11:47)
[2019-02-27 11:57] LABS: Calcium 8.4 mg/dL (8.4-10.2); Potassium 4.3 mmol/L (3.5-5.1)
[2019-02-27] MEDS: METOCLOPRAMIDE 5 MG/ML 2 ML VIAL IVP PRN ×2 (15:26→21:08)
--- NOTE | 2019-02-27 19:32 | P.PN ---
Progress Note - Text 02/27/2019 1920 32-year-old male status post colostomy reversal by Dr. Hoff. Patient has an epidural catheter for postop pain control with the solution running at 7 mL an hour with a VAS of 0. No motor or sensory deficits noted. Plan to continue epidural infusion
[2019-02-27] MEDS: ACETAMINOPHEN TAB 325 MG TAB PO PRN (20:54)
[2019-02-28] MEDS: ONDANSETRON 4 MG/2 ML VIAL IVP PRN ×2 (00:41→07:48)
[2019-02-28] MEDS: metroNIDAZOLE-NS PMX 500 MG in SALINE 1 100ML.BAG IVPB SCH ×3 (00:45→15:57)
[2019-02-28] MEDS: LACTATED RINGERS 1,000 ML IV SCH (05:44)
[2019-02-28] MEDS: D5-0.45% NACL WITH KCL 20MEQ/L 1,000 ML IV SCH ×3 (05:47→22:58)
[2019-02-28 06:49] LABS: Basophils % (A) 0 %; Eosinophils # (A) 0.2 k/uL (0-0.7); Eosinophils % (A) 1 %; HCT 43.2 % (39.0-53.0); HGB 14.7 gm/dL (13.0-17.5); Lymphocytes # (A) 1.1 k/uL (1.0-4.8); Lymphocytes % (A) 7 %; MCV 85.3 fL (80.0-100.0); Mean Platelet Volume 7.7; Monocytes # (A) 0.9 k/uL (0-1.0); Monocytes % (A) 6 %; Neutrophils % (A) 84 %; Platelet Count 171 k/uL (150-450); RBC 5.07 m/uL (4.30-5.90); RDW 14.8 % (11.5-15.5); WBC 15.4 k/uL (3.8-10.6)
[2019-02-28 07:04] LABS: Calcium 8.6 mg/dL (8.4-10.2); Potassium 4.1 mmol/L (3.5-5.1)
[2019-02-28] MEDS: ACETAMINOPHEN TAB 325 MG TAB PO PRN (07:48)
[2019-02-28] MEDS: ALVIMOPAN 12 MG CAPSULE PO SCH ×2 (07:48→20:56)
--- NOTE | 2019-02-28 10:09 | P.PN ---
Progress Note - Text Progress Note Date: 02/28/19 The patient resting comfortably in his bed. He denies any significant pain. He has really not ambulated at all. On exam his vital signs are stable. His abdomen soft. Status post reversal of colostomy. Patient was encouraged to ambulate and use incentive spirometer. He will remain on clear liquids.
--- NOTE | 2019-02-28 16:50 | P.PN ---
Progress Note - Text 02/28/2019 1607 34-year-old male status post colostomy closure by Dr. Hoff. Epidural solution is running at 7 mL an hour with a VAS of 0 no motor or sensory deficit noted. Plan to continue epidural infusion and DC in the morning
[2019-02-28] MEDS: PIPERACILLIN-TAZOBACTAM 3.375 GM in SODIUM CHLORIDE 0.9% 100 ML IVPB SCH (18:21)
[2019-02-28] MEDS: METOCLOPRAMIDE 5 MG/ML 2 ML VIAL IVP PRN (20:57)
[2019-03-01] MEDS: ONDANSETRON 4 MG/2 ML VIAL IVP PRN ×3 (00:11→19:07)
[2019-03-01] MEDS: PIPERACILLIN-TAZOBACTAM 3.375 GM in SODIUM CHLORIDE 0.9% 100 ML IVPB SCH ×4 (00:11→23:44)
[2019-03-01] MEDS: METOCLOPRAMIDE 5 MG/ML 2 ML VIAL IVP PRN ×2 (03:00→16:59)
[2019-03-01] MEDS: LACTATED RINGERS 1,000 ML IV SCH (03:47)
[2019-03-01] MEDS: D5-0.45% NACL WITH KCL 20MEQ/L 1,000 ML IV SCH ×3 (05:17→22:42)
[2019-03-01] MEDS: ALVIMOPAN 12 MG CAPSULE PO SCH ×2 (07:49→21:34)
[2019-03-01 08:04] LABS: Basophils % (A) 0 %; Eosinophils # (A) 0.1 k/uL (0-0.7); Eosinophils % (A) 1 %; HCT 44.2 % (39.0-53.0); HGB 14.8 gm/dL (13.0-17.5); Lymphocytes % (A) 7 %; MCHC 33.5 g/dL (31.0-37.0); MCV 83.6 fL (80.0-100.0); Mean Platelet Volume 8.2; Monocytes # (A) 0.9 k/uL (0-1.0); Monocytes % (A) 7 %; Neutrophils # (A) 11.2 k/uL (1.3-7.7); Neutrophils % (A) 85 %; Platelet Count 183 k/uL (150-450); RBC 5.29 m/uL (4.30-5.90); RDW 14.1 % (11.5-15.5); WBC 13.2 k/uL (3.8-10.6)
--- NOTE | 2019-03-01 08:18 | P.PN ---
Progress Note - Text 03/01/2019 645am 54-year-old male status post colostomy reversal by Dr. Hoff. This postop day #3 with the epidural running at 7 mL an hour with a VAS of 0. Patient hasn't ambulated at all since the day of his surgery, despite being told to do so. I DC the epidural today and informed nurse.
[2019-03-01 08:47] LABS: Calcium 9.1 mg/dL (8.4-10.2); Potassium 4.4 mmol/L (3.5-5.1)
[2019-03-01 09:02] LABS: C Reactive Protein 157.4 mg/L (<10.0)
[2019-03-01 09:34] LABS: Erythrocyte Sedimentation Rate 23 mm/hr (0-15)
--- NOTE | 2019-03-01 10:11 | US ---
EXAMINATION TYPE: US kidneys/renal and bladder DATE OF EXAM: 03/01/2019 COMPARISON: NONE CLINICAL HISTORY: acute renal insufficiency. patient has Crohn's and just had osteomy reversal EXAM MEASUREMENTS: Right Kidney: 10.7 x 5.1 x 5.2 cm Left Kidney: 11.9 x 4.8 x 5.7 cm Right Kidney: No hydronephrosis or masses seen Left Kidney: Mild hydronephrosis seen Bladder: not seen due to bandages from osteomy reversal No nephrolithiasis is seen. No masses are identified. The urinary bladder is not seen as discussed above. IMPRESSION: Mild left-sided hydronephrosis. Etiology is not seen on the examination. No right-sided hydronephrosi s or nephrolithiasis of either kidney.
--- NOTE | 2019-03-01 14:02 | P.PN ---
<Cynthia Miller A - Last Filed: 03/01/19 13:58> Subjective Progress Note Date: 03/01/19 CHIEF COMPLAINT: colostomy reversal HISTORY OF PRESENT ILLNESS: The patient underwent open lower anterior resection with descending colostomy reversal including sigmoid colectomy on 02/26/2019. Patient examined this morning at the bedside. He is nauseous and having some dry heaves during examination. Reports pain is tolerable Epidural was discontinued this morning. Passing flatus and having BMs. Frias with clear yellow urine. Nursing reports 20 mL of serous drainage from MIRI today. Patient has not been out of bed or ambulating today. PHYSICAL EXAM: VITAL SIGNS: Currently stable. GENERAL: Well-developed in no acute distress. HEENT: No sclera icterus. Extraocular movements grossly intact. Moist buccal mucosa. Head is atraumatic, normocephalic. Hears conversational speech. No nasal drainage. NECK: Supple without lymphadenopathy. CHEST: Non-labored respirations and equal bilateral excursions. CARDIOVASCULAR: Regular rate with regular rhythm. Palpable 2+ radial pulses. ABDOMEN: Soft. Nondistended. Positive bowel sounds. PREVENA wound management system noted. MIRI with serous drainage. MUSCULOSKELETAL: No clubbing, cyanosis or edema. NEUROLOGIC: No focal or lateralizing signs. Cranial nerves II through XII grossly intact. PSYCH: Appropriate affect. Alert and oriented to person, place and time. SKIN: Well perfused. Good skin turgor. LABORATORY DATA: WBC 13.2. Hemoglobin 14.8. Neutrophil count 11.2. Sodium 136. Potassium 4.4. Creatinine 1.86. ESR 23. CRP 157.4. ASSESSMENT: 1. S/P reversal of colostomy 2. History of Crohn's disease with possible acute exacerbation, CRP 157.4 3. Acute kidney injury, r/o ureter injury during surgery 4. History of exploratory laparotomy, lysis of adhesions, resection of ileum, ileocolectomy, resection of sigmoid colon for perforated colon, greater omentectomy for strangulated right inguinal hernia, open right inguinal hernia repair and abdominal washout, 08/08/2018 PLAN: 1. Continue clear liquid diet 2. Consult GI secondary to elevated CRP 3. Urology consulted to r/o ureter injury during surgery secondary to inc reasing creatinine 4. May discontinue frias catheter this afternoon after urology has evaluated patient and if agreeable to frias discontinuation 5. Pain control 6. Incentive spirometry 7. Activity as tolerated. Patient encouraged to be out of bed and ambulatory 8. Monitor CBC. Continue IV antibiotics Nurse practitioner note has been reviewed by physician. Signing provider agrees with the documented findings, assessment, and plan of care. Objective - Vital Signs Vital signs: Vital Signs Temp 99.1 F 03/01/19 08:03 Pulse 76 03/01/19 08:03 Resp 16 03/01/19 08:03 BP 147/91 03/01/19 08:03 Pulse Ox 95 03/01/19 08:03 Intake & Output 02/28/19 03/01/19 03/01/19 18:59 06:59 18:59 Intake Total 0 227.733 Output Total 1060 1030 Balance -1060 -1030 227.733 Intake: Intake, IV Titration 227.733 Amount Ropivacaine 250 mg 227.733 Hydromorphone (Pf) 5 mg In Sodium Chloride 0.9% 200 ml @ Per Protocol EPIDURAL .Q0M PRN Rx#: [id number] Oral 0 Output: Drainage 60 30 Right Lower Abdomen 60 30 Urine 900 900 Emesis 100 100 Other: Voiding Method Indwelling Catheter Indwelling Catheter Indwelling Catheter # Bowel Movements 1 - Labs CBC & Chem 7: 03/01/19 07:14 03/01/19 07:14 Labs: Abnormal Lab Results - Last 24 Hours (Table) 03/01/19 03/01/19 Range/Units 07:14 07:14 WBC 13.2 H (3.8-10.6) k/uL Neutrophils # 11.2 H (1.3-7.7) k/uL ESR 23 H (0-15) mm/hr Sodium 136 L (137-145) mmol/L Creatinine 1.86 H (0.66-1.25) mg/dL Glucose 120 H (74-99) mg/dL C-Reactive Protein 157.4 H (<10.0) mg/L Assessment and Plan (1) Colostomy status Current Visit: No Status: Acute Code(s): Z93.3 - COLOSTOMY STATUS SNOMED Code(s): 873920997 (2) Crohn's disease involving terminal ileum Current Visit: No Status: Acute Code(s): K50.00 - CROHN'S DISEASE OF SMALL INTESTINE WITHOUT COMPLICATIONS SNOMED Code(s): 679926694 (3) Elevated C-reactive protein (CRP) Current Visit: No Status: Acute Code(s): R79.82 - ELEVATED C-REACTIVE PROTEIN (CRP) SNOMED Code(s): 344775936844873 (4) Leukocytosis Current Visit: No Status: Acute Code(s): D72.829 - ELEVATED WHITE BLOOD CELL COUNT, UNSPECIFIED SNOMED Code(s): 545989596 <KavyaMaryellen clark N - Last Filed: 03/01/19 21:27> Subjective Patient seen and evaluated. Creatinine is elevated. US of the bladder and kidneys shows mild hydronephrosis on the left side where ureteral injury cannot be excluded. Otherwise, he clinically feels well. After discontinuing epidural. His nausea is resolved. He is tolerating diet. Additionally, CRP and ESR labs obtained with marked elevation consistent with active Crohn's disease. GI consultation also obtained for Crohn's disease. Findings discussed with the patient and his family. Will obtain urology c onsultation in the interim. Objective - Vital Signs Vital signs: Vital Signs Temp 99.7 F H 03/01/19 19:04 Pulse 66 03/01/19 19:04 Resp 17 03/01/19 19:04 BP 173/98 03/01/19 19:04 Pulse Ox 97 03/01/19 19:04 Intake & Output 03/01/19 03/01/19 03/02/19 06:59 18:59 06:59 Intake Total 1202.733 Output Total 1030 1320 Balance -1030 -117.267 Weight 83.915 kg Intake: Intake, IV Titration 1202.733 Amount D5-0.45% NaCl with KCl 875 20Meq/l 1,000 ml @ 125 mls/hr IV .Q8H [place] Rx#: [id number] Piperacillin-Tazobactam 3 100 .375 gm In Sodium Chloride 0.9% 100 ml @ 25 mls/hr IVPB Q8HR [facility] Rx# :[id number] Ropivacaine 250 mg 227.733 Hydromorphone (Pf) 5 mg In Sodium Chloride 0.9% 200 ml @ Per Protocol EPIDURAL .Q0M PRN Rx#: [id number] Output: Drainage 30 20 Right Lower Abdomen 30 20 Urine 900 1300 Emesis 100 Other: Voiding Method Indwelling Catheter Indwelling Catheter Indwelling Catheter # Bowel Movements 1 - Labs CBC & Chem 7: 03/01/19 07:14 03/01/19 07:14 Labs: Abnormal Lab Results - Last 24 Hours (Table) 03/01/19 03/01/19 Range/Units 07:14 07:14 WBC 13.2 H (3.8-10.6) k/uL Neutrophils # 11.2 H (1.3-7.7) k/uL ESR 23 H (0-15) mm/hr Sodium 136 L (137-145) mmol/L Creatinine 1.86 H (0.66-1.25) mg/dL Glucose 120 H (74-99) mg/dL C-Reactive Protein 157.4 H (<10.0) mg/L
[2019-03-01 14:54] VITALS: BMI 29.0
--- NOTE | 2019-03-01 20:05 | P.GSCN ---
History of Present Illness Consult date: 03/01/19 Reason for Consult: Hydronephrosis Requesting physician: Maryellen Hoff History of present illness: The patient is a 34-year-old white male with a history of Crohn's disease. On February 26, he underwent open low anterior resection with descending colostomy reversal, sigmoid colectomy, and extensive lysis of adhesions. His serum creatinine level was normal preoperatively, but has been elevated postoperatively. A renal ultrasound this morning showed evidence of mild left hydronephrosis. I am consulted for this reason. The patient denies flank pain. He has an unremarkable urologic history. 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 2 children. Tobacco use. Works for a local [employer]. No experience. No international travel. Did not relate to pets in the home Smoking Status: Never smoker Past Alcohol Use History: Occasional Additional Past Alcohol Use History / Comment(s): has never had any blood transfusions Past Drug Use History: Marijuana Additional Drug Use History / Comment(s): uses every few days for back pain control, INSTRUCTED TO HOLD 24 HRS PRIOR TO PROCEDURE - Past Family History Mother Family Medical History: No Reported History Father Additional Family Medical History / Comment(s): djd-hip Medications and Allergies Home Medications Medication Instructions Recorded Confirmed Type Cholecalciferol (Vitamin D3) 1,000 unit PO DAILY 12/03/18 02/26/19 History [Vitamin D3] Allergies Allergy/AdvReac Type Severity Reaction Status Date / Time No Known Allergies Allergy Verified 02/26/19 16:55 Surgical - Exam Vital Signs Temp Pulse Resp BP Pulse Ox 97.6 F 64 17 126/80 100 02/25/19 07:08 02/25/19 07:08 02/25/19 07:08 02/25/19 07:08 02/25/19 07:08 - General well developed, well nourished, no distress - Respiratory normal respiratory effort - Abdomen Abdomen: soft, no distended - Genitourinary normal penis with no external lesions, testicles non-tender - Psychiatric oriented to time, oriented to person, oriented to place, speech is normal, memory intact Results - Labs 03/01/19 07:14 03/01/19 07:14 Abnormal Lab Results - Last 24 Hours (Table) 03/01/19 03/01/19 Range/Units 07:14 07:14 WBC 13.2 H (3.8-10.6) k/uL Neutrophils # 11.2 H (1.3-7.7) k/uL ESR 23 H (0-15) mm/hr Sodium 136 L (137-145) mmol/L Creatinine 1.86 H (0.66-1.25) mg/dL Glucose 120 H (74-99) mg/dL C-Reactive Protein 157.4 H (<10.0) mg/L Diabetes panel 03/01/19 Range/Units 07:14 Sodium 136 L (137-145) mmol/L Potassium 4.4 (3.5-5.1) mmol/L Chloride 99 (98-107) mmol/L Carbon Dioxide 29 (22-30) mmol/L BUN 15 (9-20) mg/dL Creatinine 1.86 H (0.66-1.25) mg/dL Glucose 120 H (74-99) mg/dL Calcium 9.1 (8.4-10.2) mg/dL Calcium panel 03/01/19 Range/Units 07:14 Calcium 9.1 (8.4-10.2) mg/dL Pituitary panel 03/01/19 Range/Units 07:14 Sodium 136 L (137-145) mmol/L Potassium 4.4 (3.5-5.1) mmol/L Chloride 99 (98-107) mmol/L Carbon Dioxide 29 (22-30) mmol/L BUN 15 (9-20) mg/dL Creatinine 1.86 H (0.66-1.25) mg/dL Glucose 120 H (74-99) mg/dL Calcium 9.1 (8.4-10.2) mg/dL Adrenal panel 03/01/19 Range/Units 07:14 Sodium 136 L (137-145) mmol/L Potassium 4.4 (3.5-5.1) mmol/L Chloride 99 (98-107) mmol/L Carbon Dioxide 29 (22-30) mmol/L BUN 15 (9-20) mg/dL Creatinine 1.86 H (0.66-1.25) mg/dL Glucose 120 H (74-99) mg/dL Calcium 9.1 (8.4-10.2) mg/dL - Imaging US - kidney/bladder: report reviewed Assessment and Plan (1) Hydronephrosis Current Visit: Yes Status: Acute Code(s): N13.30 - UNSPECIFIED HYDRONEPHROSIS SNOMED Code(s): 96699500 Plan: The increased serum creatinine level and presence of hydronephrosis on ultrasoun d are suggestive of ureteral obstruction. MIRI fluid was sent for creatinine, but the result is pending. It would be my recommendation to proceed with cystoscopy, left retrograde pyelogram, and possible ureteral stent insertion. If he is found to have ureteral obstruction and a stent cannot be placed, surgical exploration with ureteral repair will need to be considered. This has been discussed in detail with both the patient and his mother. Potential risks were also reviewed, which include anesthesia, bleeding, and infection.
[2019-03-02] MEDS: METOCLOPRAMIDE 5 MG/ML 2 ML VIAL IVP PRN ×2 (02:21→12:35)
[2019-03-02] MEDS: LACTATED RINGERS 1,000 ML IV SCH (03:40)
[2019-03-02] MEDS: D5-0.45% NACL WITH KCL 20MEQ/L 1,000 ML IV SCH ×2 (05:28→12:43)
[2019-03-02] MEDS: ALVIMOPAN 12 MG CAPSULE PO SCH (06:54)
[2019-03-02] MEDS: PIPERACILLIN-TAZOBACTAM 3.375 GM in SODIUM CHLORIDE 0.9% 100 ML IVPB SCH ×3 (07:18→22:42)
[2019-03-02 07:34] LABS: Calcium 9.2 mg/dL (8.4-10.2); Potassium 4.5 mmol/L (3.5-5.1)
[2019-03-02] MEDS: ONDANSETRON 4 MG/2 ML VIAL IVP PRN (08:53)
[2019-03-02 13:23] LABS: Basophils # (A) 0.1 k/uL (0-0.2); Basophils % (A) 1 %; Eosinophils # (A) 0.2 k/uL (0-0.7); Eosinophils % (A) 2 %; HCT 44.5 % (39.0-53.0); HGB 15.3 gm/dL (13.0-17.5); Lymphocytes # (A) 0.7 k/uL (1.0-4.8); Lymphocytes % (A) 7 %; MCH 28.5 pg (25.0-35.0); MCHC 34.4 g/dL (31.0-37.0); MCV 82.9 fL (80.0-100.0); Mean Platelet Volume 8.4; Monocytes # (A) 0.9 k/uL (0-1.0); Monocytes % (A) 9 %; Neutrophils # (A) 8.2 k/uL (1.3-7.7); Neutrophils % (A) 80 %; Platelet Count 202 k/uL (150-450); RBC 5.36 m/uL (4.30-5.90); RDW 12.5 % (11.5-15.5); WBC 10.2 k/uL (3.8-10.6)
--- NOTE | 2019-03-02 13:34 | P.CONS ---
History of Present Illness - Reason for Consult Consult date: 03/02/19 Elevated CRP history of Crohn's Requesting physician: Maryellen Hoff - Chief Complaint Colostomy reversal - History of Present Illness 34-year-old male with a history of Crohn's colitis fistulization and strangulated right inguinal hernia status post exploratory laparotomy lysis of adhesions and ileocolectomy small bowel resection omentectomy sigmoid colectomy right inguinal hernia repair without mesh for perforation in July 2018. Admitted to hospital for colostomy reversal. Status post open low anterior resection with descending colostomy reversal including sigmoid colectomy extensive lysis of adhesions postoperative day #4. Preoperatively he underwent colonoscopy through the descending colostomy to the ileocolic anastomosis with biopsies of the ileum and flexible sigmoidoscopy for devitalized rectum. Colonoscopy biopsies focal chronic active ileitis negative for dysplasia. Consult requested by Gen. surgery for elevated CRP of 157 as well as a history of Crohn's presently not on maintenance therapy. Patient was seen in the GI office less than [address] Rowley presently maintained on Humira last dosage February 08. No recent steroids per discussion with patient's mother. White count 10.2. Hemoglobin 15.7. BUN 15. Creatinine 1.8. Serology consulted for possible ureteral injury. Presently he is passing flatus. Review of Systems Constitutional: Denies fever, chills, sweats, weight gain, or loss. HEENT: Negative for migraines, blurred vision or loss, earaches, drainage, tinnitus, oral mucosal lesions, dysphagia, or odynophagia. Cardiac: Negative for chest pain, arrhythmias, or palpitation. Respiratory: Negative for shortness of breath, hemoptysis, cough, or sputum production. Gastrointestinal: See HPI for pertinent findings. Genitourinary: Negative for hematuria, urgency, frequency, polyuria, dysuria, or penile discharge. Musculoskeletal: Negative for muscle aches, swelling, arthritis, and arthralgias. Neurologic: Negative for stroke or TIA. Endocrine: Negative for thyroid problems. Skin: Negative for rash or itching. 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 2 children. Tobacco use. Works for a local company. No experience. No international travel. Did not relate to pets in the home Smoking Status: Never smoker Past Alcohol Use History: Occasional Additional Past Alcohol Use History / Comment(s): has never had any blood transfusions Past Drug Use History: Marijuana Additional Drug Use History / Comment(s): uses every few days for back pain control, INSTRUCTED TO HOLD 24 HRS PRIOR TO PROCEDURE - Past Family History Mother Family Medical History: No Reported History Father Additional Family Medical History / Comment(s): djd-hip Medications and Allergies Home Medications Medication Instructions Recorded Confirmed Type Cholecalciferol (Vitamin D3) 1,000 unit PO DAILY 12/03/18 02/26/19 History [Vitamin D3] Allergies Allergy/AdvReac Type Severity Reaction Status Date / Time No Known Allergies Allergy Verified 03/02/19 14:33 Physical Exam Vitals: Vital Signs Temp Pulse Pulse Resp BP BP Pulse Ox 03/02/19 07:15 99.1 F 65 16 158/87 97 03/02/19 02:36 158/96 03/02/19 02:31 159/93 03/02/19 01:06 98.4 F 67 18 149/85 97 03/01/19 19:04 99.7 F H 66 17 173/98 97 03/01/19 15:41 98.9 F 72 16 145/90 95 Intake and Output 03/01/19 03/02/19 03/02/19 22:59 06:59 14:59 Output Total 1300 1675 20 Balance -1300 -1675 -20 Output: Drainage 25 Right Lower Abdomen 25 Urine 1300 1650 Stool 20 Other: Voiding Method Indwelling Catheter Indwelling Catheter # Bowel Movements 1 General appearance: The patient is alert, oriented, in no acute distress. HET: Head is normocephalic and atraumatic. Pupils are equal and reactive. Oropharynx is clear without lesions. Neck: Supple without lymphadenopathy. Trachea midline. Heart: S1 S2. Regular rate and rhythm. Lungs: No crackles or wheezes are heard. Abdomen: Soft, nontender, nondistended with hypoactive bowel sounds. Wound VAC in place. MIRI was cyst drainage. No peritoneal signs. No palpable organomegaly or masses. Extremities: Normal skin color and turgor. No cyanosis, rash, ulceration, clubbing, or edema. Radial and pedal pulses are 2/4 bilaterally. Andino clear michele urine. Neurological: No focal deficits. Strength and sensation are grossly intact. Results CBC & Chem 7: 03/03/19 07:28 03/03/19 07:28 Labs: Abnormal Lab Results - Last 24 Hours (Table) 03/02/19 03/02/19 Range/Units 06:47 06:47 Neutrophils # 8.2 H (1.3-7.7) k/uL Lymphocytes # 0.7 L (1.0-4.8) k/uL Sodium 136 L (137-145) mmol/L Chloride 96 L (98-107) mmol/L Carbon Dioxide 31 H (22-30) mmol/L Creatinine 1.85 H (0.66-1.25) mg/dL Glucose 120 H (74-99) mg/dL Assessment and Plan (1) History of Crohn's disease Narrative/Plan: 34-year-old male with a history of Crohn's ileitis colitis fistulaization and perforation July 2018 status post exploratory surgery with colostomy presents for reversal with preoperative colonoscopy biopsies consistent with active focal ileitis asymptomatic as well as elevated CRP presently on Humira. Current Visit: Yes Status: Acute Code(s): Z87.19 - PERSONAL HISTORY OF OTHER DISEASES OF THE DIGESTIVE SYSTEM SNOMED Code(s): 752542409376966 (2) History of colostomy reversal Current Visit: Yes Status: Acute Code(s): Z98.890 - OTHER SPECIFIED POSTPROCEDURAL STATES SNOMED Code(s): 024912172 Plan: 1. Colonoscopy biopsies were discussed with Dr. Smith. Per her evaluation further recommendation Crohn's medications and/or steroids will be advised for now no steroids unless patient becomes symptomatic. Repeat CRP in a.m. elevation could be multifactorial considering recent surgery. 2. Outpatient GI follow-up 4-[address] Rowley. Thank you for this kind referral and the opportunity to participate in the care of your patient. This consultation was discussed with Dr. Smith. The impression and plan of care have been directed as dictated.
[2019-03-02] MEDS ORDERED: IV FLUID CONTINUATION 600 ML IV ONE (14:29)
[2019-03-02] MEDS ORDERED: DEXAMETHASONE SOD PHOSPHATE 10 MG/ML 1 ML VIAL IV ONE (14:43)
[2019-03-02] MEDS ORDERED: SCOPOLAMINE 1.5MG/72HR PATCH TRANSDERM ONE (14:43)
[2019-03-02] MEDS ORDERED: ONDANSETRON 4 MG/2 ML VIAL IVP ONE (14:43)
[2019-03-02] MEDS ORDERED: IOPAMIDOL-370 50ML BTL IRRIGATION ONE ×2 (15:22→16:27)
[2019-03-02] MEDS ORDERED: ONDANSETRON 4 MG/2 ML VIAL ONE (15:56)
[2019-03-02] MEDS ORDERED: PROPOFOL 10 MG/ML 20 ML VIAL IV ONE (15:56)
[2019-03-02] MEDS ORDERED: MIDAZOLAM 2 MG/2 ML VIAL ONE (15:56)
[2019-03-02] MEDS ORDERED: SUCCINYLCHOLINE CHLORIDE 100 MG/5 ML SYR IV ONE (15:56)
[2019-03-02] MEDS ORDERED: LIDOCAINE 1% INJ 10MG/ML (20 ML MDV) ONE (15:56)
[2019-03-02] MEDS ORDERED: GLYCOPYRROLATE 0.2 MG/ML 2 ML VIAL ONE (15:56)
[2019-03-02] MEDS ORDERED: fentaNYL (PF) 50 MCG/ML 2 ML AMP ONE (15:56)
[2019-03-02] MEDS ORDERED: LACTATED RINGERS 1,000 ML IV ONE (16:45)
[2019-03-02] MEDS ORDERED: HYDROcodone/APAP 5-325MG 1 EACH TAB PO PRN (16:45)
--- NOTE | 2019-03-02 16:49 | P.PN ---
<Cynthia Miller A - Last Filed: 03/02/19 16:38> Subjective Progress Note Date: 03/02/19 CHIEF COMPLAINT: colostomy reversal HISTORY OF PRESENT ILLNESS: The patient is s/p open lower anterior resection with descending colostomy reversal including sigmoid colectomy on 02/26/2019. Patient's creatinine has been elevated postoperatively. Renal ultrasound was completed yesterday revealing left-sided mild hydronephrosis. Urology was consulted. Ureteral obstruction suspected. He is scheduled for cystoscopy today. Currently NPO but was previously tolerating clear liquid diet. Patient examined this morning at the bedside. He denies abdominal pain. Denies nausea or vomiting. Reports passing flatus. Reports BM yesterday. WBC 10.2. Hemoglobin 15.3. Creatinine 1.85. PHYSICAL EXAM: VITAL SIGNS: Currently stable. GENERAL: Well-developed in no acute distress. HEENT: No sclera icterus. Extraocular movements grossly intact. Moist buccal mucosa. Head is atraumatic, normocephalic. Hears conversational speech. No nasal drainage. NECK: Supple without lymphadenopathy. CHEST: Non-labored respirations and equal bilateral excursions. CARDIOVASCULAR: Regular rate with regular rhythm. Palpable 2+ radial pulses. ABDOMEN: Soft. Nondistended. Positive bowel sounds. PREVENA wound management system noted. MIRI with serous drainage. MUSCULOSKELETAL: No clubbing, cyanosis or edema. NEUROLOGIC: No focal or lateralizing signs. Cranial nerves II through XII grossly intact. PSYCH: Appropriate affect. Alert and oriented to person, place and time. SKIN: Well perfused. Good skin turgor. ASSESSMENT: 1. S/P reversal of colostomy 2. History of Crohn's disease with possible acute exacerbation, CRP 157.4 3. Acute kidney injury with mild left hydronephrosis and suspected ureteral obstruction 4. History of exploratory laparotomy, lysis of adhesions, resection of ileum, ileocolectomy, resection of sigmoid colon for perforated colon, greater omentectomy for strangulated right inguinal hernia, open right inguinal hernia repair and abdominal washout, 08/08/2018 PLAN: 1. Urology consulted. Currently NPO. Patient scheduled for cystoscopy, left retrograde pyelogram, and possible ureteral stent insertion. 2. GI consulted for elevated CRP. Await evaluation. 3. Activity as tolerated 4. Incentive spirometry 5. Monitor labs. Continue IV antibiotics 6. Pain control. PO norco added to regimen Nurse practitioner note has been reviewed by physician. Signing provider agrees with the documented findings, assessment, and plan of care. Objective - Vital Signs Vital signs: Vital Signs Temp 99.1 F 03/02/19 07:15 Pulse 70 03/02/19 14:29 Resp 16 03/02/19 14:29 BP 161/99 03/02/19 14:29 Pulse Ox 97 03/02/19 14:29 Intake & Output 03/01/19 03/02/19 03/02/19 18:59 06:59 18:59 Intake Total 1202.733 250 Output Total 1320 1675 20 Balance -117.267 -1675 230 Weight 83.915 kg Intake: IV 250 Intake, IV Titration 1202.733 Amount D5-0.45% NaCl with KCl 875 20Meq/l 1,000 ml @ 125 mls/hr IV .Q8H [facility] Rx#: [id number] Piperacillin-Tazobactam 3 100 .375 gm In Sodium Chloride 0.9% 100 ml @ 25 mls/hr IVPB Q8HR [facility] Rx# :[id number] Ropivacaine 250 mg 227.733 Hydromorphone (Pf) 5 mg In Sodium Chloride 0.9% 200 ml @ Per Protocol EPIDURAL .Q0M PRN Rx#: [id number] Output: Drainage 20 25 Right Lower Abdomen 20 25 Urine 1300 1650 Stool 20 Other: Voiding Method Indwelling Catheter Indwelling Catheter Indwelling Catheter # Bowel Movements 1 - Labs CBC & Chem 7: 03/02/19 06:47 03/02/19 06:47 Labs: Abnormal Lab Results - Last 24 Hours (Table) 03/02/19 03/02/19 Range/Units 06:47 06:47 Neutrophils # 8.2 H (1.3-7.7) k/uL Lymphocytes # 0.7 L (1.0-4.8) k/uL Sodium 136 L (137-145) mmol/L Chloride 96 L (98-107) mmol/L Carbon Dioxide 31 H (22-30) mmol/L Creatinine 1.85 H (0.66-1.25) mg/dL Glucose 120 H (74-99) mg/dL Assessment and Plan (1) Colostomy status Current Visit: No Status: Acute Code(s): Z93.3 - COLOSTOMY STATUS SNOMED Code(s): 845840646 (2) Crohn's disease involving terminal ileum Current Visit: No Status: Acute Code(s): K50.00 - CROHN'S DISEASE OF SMALL INTESTINE WITHOUT COMPLICATIONS SNOMED Code(s): 693881721 (3) Elevated C-reactive protein (CRP) Current Visit: No Status: Acute Code(s): R79.82 - ELEVATED C-REACTIVE PROTEIN (CRP) SNOMED Code(s): 574310361840253 (4) Leukocytosis Current Visit: No Status: Acute Code(s): D72.829 - ELEVATED WHITE BLOOD CELL COUNT, UNSPECIFIED SNOMED Code(s): 788364428 <Maryellen Hoff N - Last Filed: 03/02/19 20:16> Objective - Vital Signs Vital signs: Vital Signs Temp 98.7 F 03/02/19 18:39 Pulse 99 03/02/19 19:41 Resp 16 03/02/19 18:28 BP 151/93 03/02/19 19:41 Pulse Ox 98 03/02/19 19:41 Intake & Output 03/02/19 03/02/19 03/03/19 06:59 18:59 06:59 Intake Total 750 Output Total 1675 20 Balance -1675 730 Intake: IV 750 Output: Drainage 25 Right Lower Abdomen 25 Urine 1650 Stool 20 Estimated Blood Loss 0 Other: Voiding Method Indwelling Catheter Indwelling Catheter - Labs CBC & Chem 7: 03/02/19 06:47 03/02/19 06:47 Labs: Abnormal Lab Results - Last 24 Hours (Table) 03/02/19 03/02/19 Range/Units 06:47 06:47 Neutrophils # 8.2 H (1.3-7.7) k/uL Lymphocytes # 0.7 L (1.0-4.8) k/uL Sodium 136 L (137-145) mmol/L Chloride 96 L (98-107) mmol/L Carbon Dioxide 31 H (22-30) mmol/L Creatinine 1.85 H (0.66-1.25) mg/dL Glucose 120 H (74-99) mg/dL
[2019-03-02] MEDS ORDERED: hydrALAZINE HCL 20 MG/ML 1 ML VIAL IVP ONE (17:57)
[2019-03-02] MEDS ORDERED: HYDROmorphone 1 MG/ML 1 ML SYRINGE IVP ONE (18:20)
--- NOTE | 2019-03-02 20:22 | P.PN ---
Progress Note - Text Progress Note Date: 03/02/19 I personally spoke with Dr. Stack after the patient's cystoscopy. Flow of contrast makes into the renal pelvis however area of stricture of 1 cm identified along the left ureter at the iliacs, no complete transection identified. As it is a focal area of the stricture, additional intraoperative findings reviewed including use of a thermal energy device Enseal. Separately, patient has Crohn's disease with questionable active flareup. GI consultation appreciated. Will repeat CRP level. Separately, delayed versus early repair also discussed with urologist. For best options for reconstruction, potential transfer to [facility] for reconstruction also reviewed. Final decisions pending further direction from database consultant urologist. Additionally, I personally spoke to the patient and family about direction from urologist. Course of care also pending current state of his Crohn's disease as well.
[2019-03-02] MEDS: HEPARIN SODIUM,PORCINE 5,000 UNIT/ML 1 ML VIAL SQ SCH (20:33)
[2019-03-03] MEDS: ACETAMINOPHEN TAB 325 MG TAB PO PRN (00:56)
[2019-03-03] MEDS: ONDANSETRON 4 MG/2 ML VIAL IVP PRN ×3 (01:51→21:50)
[2019-03-03] MEDS: LACTATED RINGERS 1,000 ML IV SCH (04:43)
[2019-03-03] MEDS: HEPARIN SODIUM,PORCINE 5,000 UNIT/ML 1 ML VIAL SQ SCH ×2 (07:47→21:50)
[2019-03-03] MEDS: PANTOPRAZOLE 40 MG/10 ML VIAL IVP SCH (07:53)
[2019-03-03] MEDS: PIPERACILLIN-TAZOBACTAM 3.375 GM in SODIUM CHLORIDE 0.9% 100 ML IVPB SCH ×3 (07:53→23:27)
--- NOTE | 2019-03-03 07:58 | P.OP ---
Date of Procedure: 03/02/19 Preoperative Diagnosis: Left hydronephrosis Postoperative Diagnosis: Left hydronephrosis secondary to left distal ureteral obstruction Procedure(s) Performed: Cystoscopy, left retrograde pyelogram, left ureteroscopy Anesthesia: ERIC Surgeon: Juan Diego Stack Estimated Blood Loss (ml): 0 IV fluids (ml): 300 Pathology: none sent Condition: stable Disposition: PACU Indications for Procedure: The patient is a 34-year-old white male with a history of Crohn's disease. On February 26, he underwent open low anterior resection with descending colostomy reversal, sigmoid colectomy, and extensive lysis of adhesions. His serum creatinine level was normal preoperatively, but has been elevated postoperatively. A renal ultrasound yesterday showed evidence of mild left hydronephrosis. The patient denies flank pain and has an unremarkable urologic history. He now comes for further evaluation. Operative Findings: Segmental narrowing of the left distal ureter, approximately 1 cm length. The ureter proximal to this was dilated. Description of Procedure: The patient was taken in the operating room and placed in the dorsolithotomy position. The external genitalia was prepped and draped sterilely. The 30 lens was used to introduce the 22-Lao Stortz cystoscopic sheath through the urethra and into the bladder under direct vision. The anterior urethra appeared normal. The prostatic urethra was unremarkable. The bladder was carefully examined. The ureteral orifices appeared normal. Clear urine effluxed from the right ureteral orifice. A small area of ecchymosis was noted at the bladder dome. There was no active bleeding. Several clots were floating within the bladder and were removed. There were no tumors or foreign bodies. Using a 10-Lao cone-tip catheter, a left retrograde pyelogram was performed. Just distal to the level of the iliac vessels was an area of segmental narrowing, measuring approximately 1 cm in length. Contrast passed beyond this point, opacifying the ureter and left renal pelvis. There is no evidence of contrast extravasation. The ureter proximal to the area of narrowing was noted to be dilated. A 0.035 inch angled-tip Glidewire was passed through the cystoscope. The left ureteral orifice was cannulated, and the Glidewire was advanced. However, it could not be passed. Through the area of narrowing. The cystoscope was removed, and the [facility] semirigid ureteroscope was passed into the bladder under direct vision. The left ureteral orifice was cannulated, and the ureteroscope was slowly advanced under direct vision, up to the area of narrowing. The ureteral lumen could be seen at the area of ureteral narrowing. A straight tip 0.035 inch Glidewire was passed through the ureteroscope, but the Glidewire would not pass through the area of narrowing. Therefore, the ureteroscope was withdrawn and the procedure was terminated. The patient tolerated the procedure well was taken to the recovery room in stable condition.
[2019-03-03 08:20] LABS: Basophils % (A) 0 %; Eosinophils # (A) 0.1 k/uL (0-0.7); Eosinophils % (A) 1 %; HCT 43.6 % (39.0-53.0); HGB 14.9 gm/dL (13.0-17.5); Lymphocytes # (A) 0.9 k/uL (1.0-4.8); Lymphocytes % (A) 8 %; MCH 28.4 pg (25.0-35.0); MCHC 34.1 g/dL (31.0-37.0); MCV 83.1 fL (80.0-100.0); Mean Platelet Volume 8.2; Monocytes # (A) 1.2 k/uL (0-1.0); Monocytes % (A) 11 %; Neutrophils # (A) 8.6 k/uL (1.3-7.7); Neutrophils % (A) 78 %; Platelet Count 228 k/uL (150-450); RBC 5.25 m/uL (4.30-5.90); RDW 14.9 % (11.5-15.5); WBC 11.1 k/uL (3.8-10.6)
--- NOTE | 2019-03-03 08:28 | FL ---
EXAMINATION TYPE: FL urography retrograde DATE OF EXAM: 03/02/2019 COMPARISON: NONE HISTORY: Left ureteral stricture TECHNIQUE: Fluoroscopy. FINDINGS: Fluoroscopic guidance was provided during procedure performed by Dr. Stack. A total of 2 min and 13 seconds of fluoroscopic time was utilized during the procedure and 2 spot images was acqu ired demonstrating a short segment ureteral stricture overlying the left hemisacrum. IMPRESSION: As Above.
--- NOTE | 2019-03-03 08:35 | P.PN ---
Progress Note - Text Progress Note Date: 03/03/19 Cystoscopy and left retrograde pyelogram yesterday revealed a 1 cm area of narrowing at the level of the SI joint. Some contrast did pass through the area of narrowing and up to the renal pelvis, but a ureteral stent could not be placed. There was no extravasation of contrast. I discussed the case yesterday evening with Dr. Avery Rico, a reconstructive urologic surgeon at [facility]. I also discussed the case with Dr. Hoff. The consensus is to place a left percutaneous nephrostomy tube, with the hopes that an antegrade ureteral stent can be placed several days later. If a stent cannot be placed, he will require elective ureteral repair. There is some concern at this time that his Crohn's disease is flaring up, making a reconstructive procedure less than desirable at this time. I have spoken with Dr. Croft regarding nephrostomy tube insertion later today.
[2019-03-03 08:36] LABS: Calcium 9.2 mg/dL (8.4-10.2); Potassium 4.2 mmol/L (3.5-5.1)
[2019-03-03 09:52] LABS: C Reactive Protein 64.2 mg/L (<10.0)
--- NOTE | 2019-03-03 11:23 | P.PN ---
Subjective Progress Note Date: 03/03/19 Principal diagnosis: Crohn's 34-year-old gentleman with a history of Crohn's ileocolitis status post colostomy reversal and cystoscopy left ureteroscopy pyelogram yesterday for left hydronephrosis. Patient is scheduled for nephrostomy tube placement today. White count 11.1. Hemoglobin 14.9. CRP improved 64.2. Objective - Vital Signs Vital signs: Vital Signs Temp 98.9 F 03/03/19 06:59 Pulse 64 03/03/19 06:59 Resp 16 03/03/19 06:59 BP 165/90 03/03/19 06:59 Pulse Ox 98 03/03/19 06:59 Intake & Output 03/02/19 03/03/19 03/03/19 18:59 06:59 18:59 Intake Total 750 Output Total 20 30 Balance 730 -30 Intake: IV 750 Output: Drainage 30 Right Lower Abdomen 30 Stool 20 Estimated Blood Loss 0 Other: Voiding Method Indwelling Catheter Toilet # Voids 1 - Exam General appearance: The patient is alert, oriented, in no acute distress. HET: Head is normocephalic and atraumatic. Pupils are equal and reactive. Oropharynx is clear without lesions. Neck: Supple without lymphadenopathy. Trachea midline. Heart: S1 S2. Regular rate and rhythm. Lungs: No crackles or wheezes are heard. Abdomen: Soft, nontender, nondistended with hypoactive bowel sounds. Wound VAC in place. MIRI was cyst drainage. No peritoneal signs. No palpable organomegaly or masses. Extremities: Normal skin color and turgor. No cyanosis, rash, ulceration, clubbing, or edema. Radial and pedal pulses are 2/4 bilaterally. Andino clear michele urine. Neurological: No focal deficits. Strength and sensation are grossly intact. - Labs CBC & Chem 7: 03/03/19 07:28 03/03/19 07:28 Labs: Abnormal Lab Results - Last 24 Hours (Table) 03/02/19 03/03/19 03/03/19 Range/Units 06:47 07:28 07:28 WBC 11.1 H (3.8-10.6) k/uL Neutrophils # 8.2 H 8.6 H (1.3-7.7) k/uL Lymphocytes # 0.7 L 0.9 L (1.0-4.8) k/uL Monocytes # 1.2 H (0-1.0) k/uL Sodium 135 L (137-145) mmol/L Chloride 97 L (98-107) mmol/L Creatinine 1.68 H (0.66-1.25) mg/dL Glucose 103 H (74-99) mg/dL C-Reactive Protein 64.2 H (<10.0) mg/L Assessment and Plan (1) History of Crohn's disease Narrative/Plan: 34-year-old male with a history of Crohn's ileitis colitis fistulaization and perforation July 2018 status post exploratory surgery with colostomy presents for reversal with preoperative colonoscopy biopsies consistent with active focal ileitis asymptomatic as well as elevated CRP presently on Humira. CRP has improved to 64.2. Status post cystoscopy left ureteroscopy pyelogram for left hydronephrosis scheduled for nephrostomy tube placement today. Current Visit: Yes Status: Acute Code(s): Z87.19 - PERSONAL HISTORY OF OTHER DISEASES OF THE DIGESTIVE SYSTEM SNOMED Code(s): 075200621951630 (2) History of colostomy reversal Current Visit: Yes Status: Acute Code(s): Z98.890 - OTHER SPECIFIED POSTPROCEDURAL STATES SNOMED Code(s): 716789979 Plan: 1. No steroids for now. Will discuss restarting Humira therapy before discharge with Dr. Hoff recommend waiting at least 2 weeks postop or per recommendation; last dose Humira per patient and mother February 08. 2. Outpatient GI follow-up 4-[address] Rowley. Assessment and plan of care discussed with Dr. Smith
--- NOTE | 2019-03-03 13:18 | P.PN ---
Subjective Progress Note Date: 03/03/19 CHIEF COMPLAINT: colostomy reversal HISTORY OF PRESENT ILLNESS: The patient is s/p open lower anterior resection with descending colostomy reversal including sigmoid colectomy on 02/26/2019. Patient underwent cystoscopy and left retrograde pyelogram yesterday revealing 1 cm area of narrowing at the SI joint. Ureteral stent could not be placed. Patient is scheduled to have a left percutaneous nephrostomy tube inserted today by interventional radiology with plans for possible antegrade ureteral stent can be placed in the future. Creatinine 1.68 today. CRP improved to 64.2. GI following. PHYSICAL EXAM: VITAL SIGNS: Currently stable. GENERAL: Well-developed in no acute distress. HEENT: No sclera icterus. Extraocular movements grossly intact. Moist buccal mucosa. Head is atraumatic, normocephalic. Hears conversational speech. No nasal drainage. NECK: Supple without lymphadenopathy. CHEST: Non-labored respirations and equal bilateral excursions. CARDIOVASCULAR: Regular rate with regular rhythm. Palpable 2+ radial pulses. ABDOMEN: Soft. Nondistended. Positive bowel sounds. PREVENA wound management system noted. MIRI with serous drainage. MUSCULOSKELETAL: No clubbing, cyanosis or edema. NEUROLOGIC: No focal or lateralizing signs. Cranial nerves II through XII grossly intact. PSYCH: Appropriate affect. Alert and oriented to person, place and time. SKIN: Well perfused. Good skin turgor. ASSESSMENT: 1. S/P reversal of colostomy 2. History of Crohn's disease with possible acute exacerbation, CRP 157.4, improving 3. Acute kidney injury 4. Left hydronephrosis, status post cystoscopy and retrograde pyelogram revealing 1 cm area of narrowing at SI joint 5. History of exploratory laparotomy, lysis of adhesions, resection of ileum, ileocolectomy, resection of sigmoid colon for perforated colon, greater omentectomy for strangulated right inguinal hernia, open right inguinal hernia repair and abdominal washout, 08/08/2018 PLAN: 1. Urology on consult. Patient to have left percutaneous nephrostomy tube inserted today per interventional radiology 2. GI on consult 3. Activity as tolerated 4. Incentive spirometry 5. Monitor labs. Continue IV antibiotics 6. Pain control Nurse practitioner note has been reviewed by physician. Signing provider agrees with the documented findings, assessment, and plan of care. Objective - Vital Signs Vital signs: Vital Signs Temp 98.9 F 03/03/19 06:59 Pulse 64 03/03/19 06:59 Resp 16 03/03/19 06:59 BP 165/90 03/03/19 06:59 Pulse Ox 98 03/03/19 06:59 Intake & Output 03/02/19 03/03/19 03/03/19 18:59 06:59 18:59 Intake Total 750 Output Total 20 30 Balance 730 -30 Intake: IV 750 Output: Drainage 30 Right Lower Abdomen 30 Stool 20 Estimated Blood Loss 0 Other: Voiding Method Indwelling Catheter Toilet # Voids 1 - Labs CBC & Chem 7: 03/03/19 07:28 03/03/19 07:28 Labs: Abnormal Lab Results - Last 24 Hours (Table) 03/02/19 03/03/19 03/03/19 Range/Units 06:47 07:28 07:28 WBC 11.1 H (3.8-10.6) k/uL Neutrophils # 8.2 H 8.6 H (1.3-7.7) k/uL Lymphocytes # 0.7 L 0.9 L (1.0-4.8) k/uL Monocytes # 1.2 H (0-1.0) k/uL Sodium 135 L (137-145) mmol/L Chloride 97 L (98-107) mmol/L Creatinine 1.68 H (0.66-1.25) mg/dL Glucose 103 H (74-99) mg/dL C-Reactive Protein 64.2 H (<10.0) mg/L Assessment and Plan (1) Colostomy status Current Visit: No Status: Acute Code(s): Z93.3 - COLOSTOMY STATUS SNOMED Code(s): 438389481 (2) Crohn's disease involving terminal ileum Current Visit: No Status: Acute Code(s): K50.00 - CROHN'S DISEASE OF SMALL INTESTINE WITHOUT COMPLICATIONS SNOMED Code(s): 062983616 (3) Elevated C-reactive protein (CRP) Current Visit: No Status: Acute Code(s): R79.82 - ELEVATED C-REACTIVE PROTEIN (CRP) SNOMED Code(s): 351369409702627 (4) Leukocytosis Current Visit: No Status: Acute Code(s): D72.829 - ELEVATED WHITE BLOOD CELL COUNT, UNSPECIFIED SNOMED Code(s): 184872605
[2019-03-03] MEDS ORDERED: IV FLUID CONTINUATION 500 ML IV ONE (14:00)
[2019-03-03] MEDS ORDERED: LIDOCAINE 1% INJ 10MG/ML (20 ML MDV) ONE (14:13)
[2019-03-03] MEDS ORDERED: HEPARIN SODIUM 1,000 UN/ML (10ML VL) ONE (14:14)
[2019-03-03] MEDS ORDERED: fentaNYL (PF) 50 MCG/ML 2 ML AMP ONE (14:15)
[2019-03-03] MEDS ORDERED: LIDOCAINE 1% INJ 10MG/ML (20 ML MDV) SQ ONE (14:20)
[2019-03-03] MEDS ORDERED: fentaNYL (PF) 50 MCG/ML 2 ML AMP IVP ONE (14:22)
[2019-03-03] MEDS ORDERED: MIDAZOLAM (PF) 2 MG/2 ML VIAL IVP ONE (14:25)
--- NOTE | 2019-03-03 15:30 | IR ---
Aborted nephrostomy HISTORY: Hydronephrosis Maximal barrier technique was utilized. The skin overlying the left kidney was localized with ultraso und and the overlying skin was prepped and draped. Ultrasound used with sterile technique. Ultrasound images obtained of the left kidney verifying mild hydronephrosis. Lidocaine was used for local anesthesia. Skin eleni was made with a scalpel overlying the lower pole t he left kidney. 21-gauge needle was used under ultrasound guidance, 3 unsuccessful attempts were made at cannulating the renal collecting system. Exam was aborted. Patient remained in stable condition w ithout complication. Hemostasis achieved. 33 minutes of conscious sedation time was performed, a separate individual monitoring the patient thr oughout. IMPRESSION: Aborted nephrostomy tube placement. Mild hydronephrosis.
[2019-03-04] MEDS: LACTATED RINGERS 1,000 ML IV SCH (04:54)
--- NOTE | 2019-03-04 06:46 | P.PN ---
Progress Note - Text Progress Note Date: 03/03/19 Patient seen and evaluated. Family at bedside. Interventional radiology unable to place a nephrostomy tube. Overall patient has very mild hydronephrosis on left with flow into left renal pelvis. However creatinine has improved in the last 24 hours. Clinically overall he has improvement of his Crohn's. Discharge pending final assessment by urology. We'll follow creatinine function. All questions were addressed with the patient and his family including mother on the phone including overall care.
[2019-03-04] MEDS: METOCLOPRAMIDE 5 MG/ML 2 ML VIAL IVP PRN (07:12)
[2019-03-04] MEDS: PANTOPRAZOLE 40 MG/10 ML VIAL IVP SCH (07:14)
[2019-03-04] MEDS: HEPARIN SODIUM,PORCINE 5,000 UNIT/ML 1 ML VIAL SQ SCH (07:15)
[2019-03-04] MEDS: PIPERACILLIN-TAZOBACTAM 3.375 GM in SODIUM CHLORIDE 0.9% 100 ML IVPB SCH (07:15)
--- NOTE | 2019-03-04 08:02 | P.PN ---
Progress Note - Text Progress Note Date: 03/04/19 Left nephrostomy tube insertion yesterday was unsuccessful, due to a lack of renal pelvic dilation. The system may have been decompressed as a result of ureteroscopic manipulation the previous day. The renal function was somewhat improved yesterday. The creatinine level from this morning is pending. The patient denies flank pain. It would be my recommendation that his renal function continued to be monitored, and that the MIRI drain remained in place. If the renal function worsens, a renal ultrasound will be repeated and if there is increased hydronephrosis interventional radiology will be asked to re-attempt nephrostomy tube insertion.
[2019-03-04 08:05] LABS: Basophils % (A) 0 %; Eosinophils # (A) 0.2 k/uL (0-0.7); Eosinophils % (A) 3 %; HCT 44.9 % (39.0-53.0); HGB 15.5 gm/dL (13.0-17.5); Lymphocytes % (A) 11 %; MCH 28.5 pg (25.0-35.0); MCHC 34.5 g/dL (31.0-37.0); MCV 82.7 fL (80.0-100.0); Mean Platelet Volume 7.6; Monocytes % (A) 10 %; Neutrophils % (A) 74 %; Platelet Count 244 k/uL (150-450); RBC 5.43 m/uL (4.30-5.90); RDW 12.6 % (11.5-15.5); WBC 9.5 k/uL (3.8-10.6)
[2019-03-04 08:14] LABS: Calcium 9.3 mg/dL (8.4-10.2); Potassium 4.1 mmol/L (3.5-5.1)
[2019-03-04 08:23] VITALS: BP 194/60; PULSE 57; RESP 17; TEMP 98.7
[2019-03-04 08:26] LABS: C Reactive Protein 58.9 mg/L (<10.0)
[2019-03-04] MEDS: ONDANSETRON 4 MG/2 ML VIAL IVP PRN (09:37)
--- NOTE | 2019-03-04 12:20 | P.NPCON ---
History of Present Illness - Reason for Consult acute renal failure - History of Present Illness Reason for consultation: Acute kidney injury History of present illness: Patient is a 34-year-old male seen in consultation for acute kidney injury. Patient's baseline creatinine is near 1 and peaked at 1.97 admission. It is down to 1.56 today. Patient has history of Crohn's disease. He had undergone descending colostomy creation in the past. This admission he underwent colostomy reversal with extensive lysis of adhesions. He currently has a MIIR drain. Patient's renal function started worsening after the surgery and renal ultrasound revealed hydronephrosis with concern for ureteral obstruction. Patient underwent cystoscopy, left retrograde pyelogram and left ureteroscopy on March 02. Nephrostomy tube insertion was then attempted by interventional radiology but was unsuccessful. He admits to good urine output. No hematuria or dysuria. Oral intake remains poor. No edema. No chest shortness of breath. No diarrhea. Hemodynamically stable. Denies regular use of nonsteroidals. No history of diabetes. Vital signs are stable. General: The patient appeared well nourished and normally developed. HEENT: Head exam is unremarkable. Neck is without jugular venous distension. LUNGS: Lungs are clear to auscultation and percussion. Breath sounds decreased. HEART: Rate and Rhythm are regular. First and second heart sounds normal. No murmurs, rubs or gallops. ABDOMEN: Abdominal exam reveals normal bowel sounds. Non-tender and non- distended. No evidence of peritonitis. EXTREMITITES: No clubbing, cyanosis, or edema. 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 2 children. Tobacco use. Works for a local company. No experience. No international travel. Did not relate to pets in the home Smoking Status: Never smoker Past Alcohol Use History: Occasional Additional Past Alcohol Use History / Comment(s): has never had any blood transfusions Past Drug Use History: Marijuana Additional Drug Use History / Comment(s): uses every few days for back pain control, INSTRUCTED TO HOLD 24 HRS PRIOR TO PROCEDURE - Past Family History Mother Family Medical History: No Reported History Father Additional Family Medical History / Comment(s): djd-hip Medications and Allergies Home Medications Medication Instructions Recorded Confirmed Type Cholecalciferol (Vitamin D3) 1,000 unit PO DAILY 12/03/18 02/26/19 History [Vitamin D3] Allergies Allergy/AdvReac Type Severity Reaction Status Date / Time No Known Allergies Allergy Verified 03/02/19 14:33 Physical Exam Vitals: Vital Signs Temp Pulse Resp BP Pulse Ox 03/04/19 08:22 98.7 F 57 L 17 194/60 98 03/04/19 08:00 57 L 17 03/04/19 00:53 98.0 F 98 18 135/90 96 03/03/19 19:47 98.9 F 66 16 152/87 98 03/03/19 15:10 98.7 F 63 16 136/88 98 Intake and Output 03/03/19 03/04/19 03/04/19 22:59 06:59 14:59 Output Total 7 20 Balance -7 -20 Output: Drainage 7 20 Right Lower Abdomen 7 20 Other: Voiding Method Toilet Toilet # Voids 1 Results - Lab Results Most recent lab results Calcium 9.3 mg/dL (8.4-10.2) 03/04/19 07:28 03/04/19 07:28 03/04/19 07:28 Assessment and Plan Plan: Assessment: 1. Acute kidney injury secondary to obstructive uropathy. Creatinine peaked at 1.9 this admission and is down to 1.56 today. There is concern for ureteral obstruction. Baseline creatinine is near 1. 2. History of Crohn's disease status post reversal of colostomy and lysis of adhesions this admission. Plan: Since renal function is improving, he can be discharged home from nephrology standpoint. Patient will need to follow-up as an outpatient in the next 1-2 weeks in our office as well as with urology for a repeat ultrasound. If renal function or hydronephrosis is worsening, then he may require another attempt for nephrostomy tube insertion. Avoid nephrotoxins. Thank you for the consultation. I will continue to follow the patient with you during his hospital stay.
--- NOTE | 2019-03-04 17:02 | P.DS ---
<PaulCynthia Sadia - Last Filed: 03/04/19 16:45> Providers Expected date of discharge: 03/04/19 - Discharge Diagnosis(es) (1) Colostomy status Status: Acute (2) Crohn's disease involving terminal ileum Status: Acute (3) Elevated C-reactive protein (CRP) Status: Acute (4) Leukocytosis Status: Acute Hospital Course: 34 year old male who underwent open lower anterior resection with descending colostomy reversal including sigmoid colectomy on 02/26/[address] Hoff. Patients creatinine began climbing postoperatively. Renal ultrasound revealed left-sided mild hydronephrosis. Patient underwent cystoscopy and left retrograde pyelogram with Dr. Stack revealing 1 cm area of narrowing at the SI joint. Ureteral stent could not be placed. Interventional radiology was consulted for placement of nephrostomy tube. This was attempted but unsuccessful. Dr. Stack recommended continued monitoring. Patient's creatinine has been trending downward. He is voiding without difficulty. Nephrology was also consulted to evaluate patient during hospitalization. Dr. Carrillo recommends outpatient follow up and also states patient will require repeat US outpatient. CRP was elevated postoperatively at 157.4. GI was consulted for evaluation. No intervention from their standpoint. CRP trending downward. He is to follow up with GI physician outpatient to discuss resuming Humira. Patient is stable for discharge home today. MIRI drain to be removed at follow up appointment with Dr. Hoff. Please see EMR for further hospital course details. Discharge Diagnosis: 1. S/P reversal of colostomy 2. History of Crohn's disease with possible acute exacerbation, initial CRP 157.4, improving 3. Acute kidney injury 4. Left hydronephrosis, status post cystoscopy and retrograde pyelogram revealing 1 cm area of narrowing at SI joint 5. History of exploratory laparotomy, lysis of adhesions, resection of ileum, ileocolectomy, resection of sigmoid colon for perforated colon, greater omentectomy for strangulated right inguinal hernia, open right inguinal hernia repair and abdominal washout, 08/08/2018 Nurse practitioner note has been reviewed by physician. Signing provider agrees with the documented findings, assessment, and plan of care. Patient Condition at Discharge: Stable Plan - Discharge Summary Discharge Rx Participant: Yes New Discharge Prescriptions: New Hydrocodone/Acetaminophen [[place] 5-325] 1 tab PO Q4HR PRN 3 Days #18 tab PRN Reason: Pain No Action Cholecalciferol (Vitamin D3) [Vitamin D3] 1,000 unit PO DAILY Discharge Medication List Cholecalciferol (Vitamin D3) [Vitamin D3] 1,000 unit PO DAILY 12/03/18 [History] Hydrocodone/Acetaminophen [[place] 5-325] 1 tab PO Q4HR PRN 3 Days #18 tab 03/04/19 [Rx] Follow up Appointment(s)/Referral(s): Juan Diego Stack MD [STAFF PHYSICIAN] - 1 Week (Office will call with follow-up) Maryellen Hoff MD [STAFF PHYSICIAN] - 03/09/19 4:45 pm [facility], [NON-STAFF] - Nehemiah Carrillo DO [STAFF PHYSICIAN] - 1 Week (Office will call with follow-up) En Rowley MD [STAFF PHYSICIAN] - 04/05/19 8:30 am Patient Instructions/Handouts: Crohn Disease (DC), Hydronephrosis (DC) Activity/Diet/Wound Care/Special Instructions: No driving while taking [place] No lifting over 10 pounds You may shower. No soaking or tub baths Very light activity until you are reevaluated at your follow up appointment with your surgeon MIRI drain to be removed by Dr. Hoff at follow up visit Diet as tolerated Discharge Disposition: HOME SELF-CARE <Maryellen Hoff - Last Filed: 03/06/19 22:24> Providers Date of admission: 02/26/19 16:15 Attending physician: Maryellen Hoff Consults: 03/01/19 08:22 Consult Physician Routine Consulting Provider: Juan Diego Stack Consult Reason/Comments: r/o ureter injury, s/p bowel surgery, inc creatinine Do you want consulting provider notified?: Yes 03/03/19 08:30 Consult Physician Routine Consulting Provider: Wilfredo Croft Consult Reason/Comments: Left nephrostomy tube insertion Do you want consulting provider notified?: Already Contacted 03/04/19 06:49 Consult Physician Routine Consulting Provider: Tasneem Martinez Consult Reason/Comments: Renal insufficiency Do you want consulting provider notified?: Yes Primary care physician: Dionisio Altagracia [facility] Course: I personally spoke to urology. Will continue MIRI as outpatient.
== END 2019-03-04 15:59 | disposition home or self-care (01) | DRG 330 ==
LOC: ORWHC2ENDO 06:49 → 3NMEDONC 08:57 → 4SSUR 16:35 → ORWHC2ENDO 02-26 15:48 → 4SSUR 02-26 16:15
PROVIDERS: ADMIT Surgery Plastic and Reconstructive Surgery; ATTEND Surgery Plastic and Reconstructive Surgery
PROC: 0DBB8ZX Excision of Ileum, Via Natural or Artificial Opening Endoscopic, Diagnostic (ICD-10-PCS; 2019-02-25)
PROC: 0DNW0ZZ Release Peritoneum, Open Approach (ICD-10-PCS; 2019-02-26)
PROC: 0J9C00Z Drainage of Pelvic Region Subcutaneous Tissue and Fascia with Drainage Device, Open Approach (ICD-10-PCS; 2019-02-26)
PROC: 0DBN0ZZ Excision of Sigmoid Colon, Open Approach (ICD-10-PCS; principal; 2019-02-26 12:25)
PROC: BT1F1ZZ Fluoroscopy of Left Kidney, Ureter and Bladder using Low Osmolar Contrast (ICD-10-PCS; 2019-03-02)
PROC: 0TJ98ZZ Inspection of Ureter, Via Natural or Artificial Opening Endoscopic (ICD-10-PCS; 2019-03-02)
DX: Z43.3 Encounter for attention to colostomy (principal); K50.80 Crohn's disease of both small and large intestine without complications; N13.1 Hydronephrosis with ureteral stricture, not elsewhere classified; N17.9 Acute kidney failure, unspecified; S37.10XA Unspecified injury of ureter, initial encounter; G40.909 Epilepsy, unspecified, not intractable, without status epilepticus; K66.0 Peritoneal adhesions (postprocedural) (postinfection); Z87.891 Personal history of nicotine dependence; Z90.49 Acquired absence of other specified parts of digestive tract; Z82.61 Family history of arthritis
CPT/HCPCS: 44389; 45330; 74420; 75984; 76770; 76942; 80048; 80053; 82570; 82607; 85025; 85652; 86140; 86850; 86900; 86901; 88304; 88305; 88307

== ENCOUNTER → 2019-03-12 | Outpatient (CLI) | payer BC ==
[2019-03-12 16:06] LABS: African American GFR (CKD) 83.7 (60.0-200.0); Anion Gap 7.6 mmol/L (4.00-12.00); BUN/Creat Ratio 13.85 Ratio (12.00-20.00); Calcium 9.4 mg/dL (8.7-10.3); Carbon Dioxide 28.4 mmol/L (21.6-31.8); Potassium 4.9 mmol/L (3.5-5.5)
== END | disposition home or self-care (01) ==
LOC: LABWHC1 08:23
PROVIDERS: ATTEND Urology
DX: N13.30 Unspecified hydronephrosis (principal); N13.1 Hydronephrosis with ureteral stricture, not elsewhere classified
CPT/HCPCS: 36415; 80048

== ENCOUNTER → 2019-03-12 | Outpatient (CLI) | payer BC ==
--- NOTE | 2019-03-12 09:01 | XR ---
EXAMINATION TYPE: XR chest 2V DATE OF EXAM: 03/12/2019 COMPARISON: 08/03/2018 HISTORY: Shortness of breath. TECHNIQUE: Frontal and lateral views of the chest are obtained. FINDINGS: There is no focal air space opacity, pleural effusion, or pneumothorax seen. The cardiac silhouette size is within normal limits. The osseous structures are intact. IMPRESSION: No radiographic sequela of pneumonia this time. Unremarkable chest x-ray.
--- NOTE | 2019-03-12 09:04 | XR ---
EXAMINATION TYPE: XR abdomen 2V DATE OF EXAM: 03/12/2019 8:52 AM CLINICAL HISTORY: Recent bowel resection and abdominal pain. TECHNIQUE: Single supine KUB image of the abdomen is obtained. COMPARISON: 08/11/2018. FINDINGS: Surgical intra-abdominal drainage catheter is coiled within the right hemipelvis. Multiple bowel sutures are seen in the right lower quadrant and pelvis. Ventral abdominal tatum near midline and in the left lower quadrant are present. No dilated large or small bowel. Osseous structures appe ar grossly intact. Lung bases are well aerated. No pneumoperitoneum is seen although this finding is limited on a supine image. IMPRESSION: Postsurgical changes of the abdomen with nonobstructive bowel gas pattern.
== END | disposition home or self-care (01) ==
LOC: RADXRMAIN 08:38
PROVIDERS: ATTEND Surgery Plastic and Reconstructive Surgery
DX: J18.9 Pneumonia, unspecified organism (principal); K56.7 Ileus, unspecified; Z98.890 Other specified postprocedural states
CPT/HCPCS: 71046; 74019

== ENCOUNTER → 2019-03-15 | Outpatient (CLI) | payer BC ==
--- NOTE | 2019-03-15 19:15 | US ---
EXAMINATION TYPE: US kidneys/renal and bladder DATE OF EXAM: 03/15/2019 COMPARISON: US 03/01/19 CLINICAL HISTORY: 38-year-old male R93.4 HX OF HYDRONEPHROSIS. Patient with Crohn's disease. Status p ost ostomy reversal . TECHNIQUE: Multiple sonographic images of the kidneys and bladder are obtained. FINDINGS: EXAM MEASUREMENTS: Right Kidney: 11.5 x 5.8 x 5.1 cm Left Kidney: 11.4 x 5.3 x 5. cm Post Void Residual Volume: Unable to determine mL Right Kidney: No hydronephrosis. Left Kidney: No hydronephrosis. Bladder: Suboptimal distention limits its evaluation. Bilateral Jets seen: No Normal Post Void Residual: unable to determine due to insufficient bladder filling. Incidental finding of probable hepatic hemangioma measuring 1cm, characterized by echogenic lesion. IMPRESSION: 1. The previous left-sided hydronephrosis has resolved. No hydronephrosis on either side. 2. Suboptimal filling for assessment of the bladder. 3. 1 cm echogenic lesion within the liver incidentally seen, likely a benign hepatic hemangioma. Nilo mmend 3-6 month follow-up ultrasound to reassess.
== END | disposition home or self-care (01) ==
LOC: RADUSWWP 14:39
PROVIDERS: ATTEND Urology
DX: Z09 Encounter for follow-up examination after completed treatment for conditions other than malignant neoplasm (principal); K76.9 Liver disease, unspecified; Z87.448 Personal history of other diseases of urinary system
CPT/HCPCS: 76770

== ENCOUNTER → 2019-03-16 | Outpatient (CLI) | payer BC ==
[2019-03-16 17:38] LABS: HCT 44.5 % (39.0-53.0); HGB 15.1 gm/dL (13.0-17.5); MCH 27.8 pg (25.0-35.0); MCHC 33.9 g/dL (31.0-37.0); MCV 82.1 fL (80.0-100.0); Mean Platelet Volume 7.4; Platelet Count 413 k/uL (150-450); RBC 5.42 m/uL (4.30-5.90); RDW 12.4 % (11.5-15.5); WBC 13.8 k/uL (3.8-10.6)
[2019-03-17 01:18] LABS: African American GFR (CKD) 92.2 (60.0-200.0); Anion Gap 9.5 mmol/L (4.00-12.00); BUN/Creat Ratio 11.67 Ratio (12.00-20.00); Calcium 9.4 mg/dL (8.7-10.3); Carbon Dioxide 25.5 mmol/L (21.6-31.8); Non-African American GFR(CKD) 79.5 (60.0-200.0); Potassium 4.6 mmol/L (3.5-5.5)
== END | disposition home or self-care (01) ==
LOC: LABWHC1 16:41
PROVIDERS: ATTEND Surgery Plastic and Reconstructive Surgery
DX: N13.30 Unspecified hydronephrosis (principal); N18.9 Chronic kidney disease, unspecified; J18.9 Pneumonia, unspecified organism
CPT/HCPCS: 36415; 80048; 85027

== ENCOUNTER 2019-03-17 11:04 | Day surgery (SDC) | payer BC ==
[2019-03-15 13:18] VITALS: BMI 25.3
--- NOTE | 2019-03-17 09:15 | P.GSHP ---
History of Present Illness H&P Date: 03/17/19 CHIEF COMPLAINT: GERD HISTORY OF PRESENT ILLNESS: The patient is a 34-year-old male who presents reports gastroesophageal reflux disease. Upper endoscopy was offered for further evaluation and management. PAST MEDICAL HISTORY: Please see list. PAST SURGICAL HISTORY: Please see list. MEDICATIONS: Please see list. ALLERGIES: Please see list. SOCIAL HISTORY: No illicit drug use FAMILY HISTORY: No reports of Crohn disease or ulcerative colitis. REVIEW OF ORGAN SYSTEMS: CONSTITUTIONAL: No reports of fevers or chills. GI: Denies any blood in stools or constipation. PHYSICAL EXAM: VITAL SIGNS: Stable GENERAL: Well-developed and pleasant in no acute distress. HEENT: No scleral icterus. Extraocular movements grossly intact. Moist buccal mucosa. NECK: Supple without lymphadenopathy. CHEST: Unlabored respirations. Equal bilateral excursions. CARDIOVASCULAR: Regular rate and rhythm. Distal 2+ pulses. ABDOMEN: Soft, nondistended. MUSCULOSKELETAL: No clubbing, cyanosis, or edema. ASSESSMENT: 1. Gastroesophageal reflux disease PLAN: 1. 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 COLOSTOMY REVERSAL 02/26/19. COLONOSCOPY Past Anesthesia/Blood Transfusion Reactions: No Reported Reaction Additional Past Anesthesia/Blood Transfusion Reaction / Comment(s): pt stated has never had anesthesia Smoking Status: Never smoker - Past Family History Mother Family Medical History: No Reported History Father Additional Family Medical History / Comment(s): djd-hip Medications and Allergies Home Medications Medication Instructions Recorded Confirmed Type Cholecalciferol (Vitamin D3) 1,000 unit PO DAILY 12/03/18 02/26/19 History [Vitamin D3] Hydrocodone/Acetaminophen [[place] 1 tab PO Q4HR PRN 3 Days #18 tab 03/04/19 Rx 5-325] Allergies Allergy/AdvReac Type Severity Reaction Status Date / Time No Known Allergies Allergy Verified 03/15/19 13:08
[~2019-03-17 11:04] MED LIST changes: +LACTATED RINGERS 1,000 ML IV SCH
[2019-03-17 11:33] VITALS: RESP 16; TEMP 98.1
[2019-03-17] MEDS ORDERED: PROPOFOL 10 MG/ML 20 ML VIAL IV ONE (11:55)
[2019-03-17] MEDS ORDERED: LIDOCAINE 1% INJ 10MG/ML (20 ML MDV) ONE (11:55)
--- NOTE | 2019-03-17 12:15 | P.PCN ---
Date of Procedure: 03/17/19 Description of Procedure: PREOPERATIVE DIAGNOSIS: Gastroesophageal reflux disease. Regurgitation History of Crohn's disease POSTOPERATIVE DIAGNOSIS: Gastroesophageal reflux disease. Regurgitation History of Crohn's disease Gastritis, chronic superficial OPERATION: Esophagogastroduodenoscopy with biopsies along antrum and duodenum SURGEON: Maryellen Hoff MD ANESTHESIA: MAC. INDICATIONS: The patient is a 34-year-old male who presents with a history of reflux disease. Benefits and risks of the procedure were described. Informed consent was obtained. DESCRIPTION: The patient was brought into the endoscopy suite and laid in the left lateral decubitus position. An Olympus gastroscope was passed along the posterior oropharynx down to the distal esophagus where the squamocolumnar junction was encountered at 40 cm from the incisors. The stomach was entered and no bile reflux was found. Additional findings are listed below. Biopsies with cold forceps were obtained of the antrum. The first through third portion of the duodenum was examined and unremarkable. Retroflexion of the scope confirmed Hill grade 2 lower esophageal valve. The squamocolumnar junction demonstrated LA grade A erosive esophagitis. The stomach was desufflated. The patient tolerated the procedure well. FINDINGS: Squamocolumnar junction 40 cm from the incisors. Diaphragmatic hiatus at 40 cm. Hill grade 2 lower esophageal valve. LA grade A erosive esophagitis. Cold forceps biopsies of the duodenum obtained for history of Crohn's disease Chronic gastritis with biopsies obtained RECOMMENDATIONS: Upper endoscopy as needed. Plan - Discharge Summary Discharge Rx Participant: Yes New Discharge Prescriptions: No Action Cholecalciferol (Vitamin D3) [Vitamin D3] 1,000 unit PO DAILY Hydrocodone/Acetaminophen [[place] 5-325] 1 tab PO Q4HR PRN 3 Days #18 tab PRN Reason: Pain Discharge Medication List Cholecalciferol (Vitamin D3) [Vitamin D3] 1,000 unit PO DAILY 12/03/18 [History] Hydrocodone/Acetaminophen [[place] 5-325] 1 tab PO Q4HR PRN 3 Days #18 tab 03/04/19 [Rx] Follow up Appointment(s)/Referral(s): Maryellen Hoff MD [STAFF PHYSICIAN] - As Needed Patient Instructions/Handouts: Gastroesophageal Reflux Disease (DC), Crohn Disease (DC) Discharge Disposition: HOME SELF-CARE
[2019-03-17 12:41] VITALS: BP 110/78; PULSE 69
== END 2019-03-17 12:56 | disposition home or self-care (01) ==
LOC: ORWHC2ENDO 11:04
PROVIDERS: ATTEND Surgery Plastic and Reconstructive Surgery
DX: K29.50 Unspecified chronic gastritis without bleeding (principal); K21.0 Gastro-esophageal reflux disease with esophagitis; Z79.891 Long term (current) use of opiate analgesic; Z79.899 Other long term (current) drug therapy
CPT/HCPCS: 88305; 43239; J2001; J2704

== ENCOUNTER → 2019-03-30 | Outpatient (CLI) | payer BC ==
[2019-03-30 08:03] LABS: HCT 39.1 % (39.0-53.0); HGB 12.9 gm/dL (13.0-17.5); MCH 27.3 pg (25.0-35.0); MCHC 32.9 g/dL (31.0-37.0); MCV 82.9 fL (80.0-100.0); Mean Platelet Volume 7.5; Platelet Count 376 k/uL (150-450); RBC 4.71 m/uL (4.30-5.90); RDW 13.4 % (11.5-15.5); WBC 9.3 k/uL (3.8-10.6)
[2019-03-30 16:53] LABS: African American GFR (CKD) 114.9 (60.0-200.0); Albumin/Globulin Ratio 1.54 (1.60-3.17); Anion Gap 5.2 mmol/L (4.00-12.00); C Reactive Protein 2.4 mg/dL (0.0-0.8); Calcium 9.3 mg/dL (8.7-10.3); Carbon Dioxide 25.8 mmol/L (21.6-31.8); Globulin 2.6 g/dL (1.6-3.3); Potassium 4.8 mmol/L (3.5-5.5); Total Bilirubin 0.1 mg/dL (0.3-1.2); Total Protein 6.6 g/dL (6.2-8.2)
== END | disposition home or self-care (01) ==
LOC: LABWHC1 07:30
PROVIDERS: ATTEND Surgery Plastic and Reconstructive Surgery
DX: K50.90 Crohn's disease, unspecified, without complications (principal)
CPT/HCPCS: 36415; 80053; 85027; 86140

== ENCOUNTER 2019-04-16 01:20 | Inpatient (IN) | payer BC ==
[2019-04-16] MEDS ORDERED: ACETAMINOPHEN TAB 325 MG TAB PO STA (01:55)
[2019-04-16] MEDS ORDERED: ONDANSETRON 4 MG/2 ML VIAL IVP STA (01:55)
[2019-04-16] MEDS ORDERED: SODIUM CHLORIDE 0.9% 1,000 ML IV ONE ×3 (01:55→11:01)
[2019-04-16 02:24] LABS: Basophils # (A) 0.3 k/uL (0-0.2); Basophils % (A) 1 %; Eosinophils # (A) 0.1 k/uL (0-0.7); Eosinophils % (A) 0 %; HCT 34.6 % (39.0-53.0); HGB 11.7 gm/dL (13.0-17.5); Lymphocytes % (A) 4 %; MCH 26.7 pg (25.0-35.0); MCHC 33.7 g/dL (31.0-37.0); MCV 79.5 fL (80.0-100.0); Mean Platelet Volume 7.6; Monocytes # (A) 1.2 k/uL (0-1.0); Monocytes % (A) 4 %; Neutrophils # (A) 24.4 k/uL (1.3-7.7); Neutrophils % (A) 90 %; Platelet Count 432 k/uL (150-450); RBC 4.36 m/uL (4.30-5.90); RDW 14.7 % (11.5-15.5); WBC 27.2 k/uL (3.8-10.6)
--- NOTE | 2019-04-16 02:24 | XR ---
EXAMINATION TYPE: XR chest 2V DATE OF EXAM: 04/16/2019 COMPARISON: 03/12/2019 HISTORY: Fever TECHNIQUE: Frontal and lateral views of the chest are obtained. FINDINGS: Heart and mediastinum are normal. Lungs are clear. Diaphragm is normal. Bony thorax appear s normal. IMPRESSION: Normal chest. No change.
[2019-04-16 02:25] LABS: ALT 16 U/L (21-72); AST 13 U/L (17-59); African American GFR (CKD) >90 (>60 ml/min/1.73 sqM); Albumin 3.9 g/dL (3.5-5.0); Alkaline Phosphatase 72 U/L (38-126); Anion Gap 10 mmol/L; Blood Urea Nitrogen 11 mg/dL (9-20); Calcium 9.6 mg/dL (8.4-10.2); Carbon Dioxide 27 mmol/L (22-30); Chloride 99 mmol/L (98-107); Glucose 113 mg/dL (74-99); Potassium 4.1 mmol/L (3.5-5.1); Sodium 136 mmol/L (137-145); Total Bilirubin 0.8 mg/dL (0.2-1.3); Total Protein 7.5 g/dL (6.3-8.2)
--- NOTE | 2019-04-16 03:36 | CT ---
EXAMINATION TYPE: CT abdomen pelvis w con DATE OF EXAM: 04/16/2019 COMPARISON: 08/04/2018 HISTORY: Vomiting CT DLP: 733.60 mGycm Automated exposure control for dose reduction was used. TECHNIQUE: Helical acquisition of images was performed from the lung bases through the pelvis. CONTRAST: Performed without Oral Contrast and with IV Contrast, patient injected with 100 mL of Isovue 300. FINDINGS: Lung bases are clear. There is no pleural effusion. Heart size is normal. Stomach appears normal. Cristy er spleen pancreas appear normal. Bile ducts are not dilated. There is possible tiny calcified galls tone. There is no adrenal mass. Kidneys have normal size. There is left-sided hydronephrosis and hydrourete r. I do not see a definite ureteral calculus. Bladder distends smoothly. There is no free fluid in th e pelvis. There are numerous surgical clips in the pelvis. There are surgical clips in the right mid abdomen. There is no evidence of free air. I see no sign of a bowel obstruction. There is fluid down to the rectum. There is no sign of free air. There is no retroperitoneal adenopathy. There is no ingu inal hernia. Bony structures are intact. Appendix not seen. No sign of appendicitis. IMPRESSION: MODERATE LEFT-SIDED HYDRONEPHROSIS AND HYDROURETER. THERE IS DECREASED LEFT RENAL FUNCTION. NO OBSTRU CTING CALCULUS SEEN. EXTENSIVE INTESTINAL SURGERY. LEFT URETER PROBABLY OBSTRUCTED IN THE PELVIS AT T HE SURGERY SITE. NO EVIDENCE OF MECHANICAL BOWEL OBSTRUCTION. There is clearing of the basilar infiltrates and atelectasis compared to old exam. Left renal obstruc tion is new compared to old exam. There is clearing of the bowel obstruction and right scrotal hernia compared to old exam.
[2019-04-16] MEDS ORDERED: SODIUM CHLORIDE 0.9% 500 ML 500 ML IV STA (03:41)
[2019-04-16 05:16] LABS: Appearance,Urine Clear (Clear); Bacteria,Urine Rare /hpf; Bilirubin,Urine Negative (Negative); Blood,Urine Negative (Negative); Color,Urine Light Yellow; Glucose,Urine (UA) Negative (Negative); Ketones,Urine Negative (Negative); Leukocyte Esterase,Urine Small (Negative); Nitrite,Urine Negative (Negative); Protein,Urine Negative (Negative); RBC,Urine <1 /hpf (0-5); Specific Gravity,Urine 1.043 (1.001-1.035); Squamous Epithelial Cell,Urine <1 /hpf (0-4); Urobilinogen,Urine <2.0 mg/dL (<2.0); WBC,Urine 12 /hpf (0-5)
[2019-04-16] MEDS ORDERED: NALOXONE 0.4 MG/ML 1 ML VIAL IV PRN (05:48)
[2019-04-16] MEDS ORDERED: HYDROcodone/APAP 5-325MG 1 EACH TAB PO PRN (05:50)
--- NOTE | 2019-04-16 05:58 | ED ---
Nausea/Vomiting/Diarrhea HPI - General Chief complaint: Nausea/Vomiting/Diarrhea Stated complaint: Vomiting Time Seen by Provider: 04/16/19 01:36 Source: patient Mode of arrival: ambulatory Limitations: no limitations - History of Present Illness Initial comments: 's patient is a 34-year-old man with history of previous hydronephrosis about one month ago, who began not feeling well last night. The patient states that he started having hot and cold flashes in the evening and then started having vomiting. He has had 3 episodes of vomiting with what he is describing is mainly clear emesis. No blood or coffee-ground material. The patient states th at he did not feel well enough to go to work and came here. The patient denies abdominal pain. No change in bowel movements. He has not noted any change in urination. He is not having any other signs of infection, including no congestion or cough or sore throat. No chest pain or dyspnea. No rash. MD complaint: nausea, vomiting -: hour(s) Description of Vomiting: watery Associated Abdominal Pain: No Severity scale (1-10): 0 Improves with: none Worsens with: none Associated Symptoms: fever/chills - Related Data Home Medications Medication Instructions Recorded Confirmed Cholecalciferol (Vitamin D3) 1,000 unit PO DAILY 12/03/18 04/16/19 [Vitamin D3] Previous Rx's Medication Instructions Recorded Hydrocodone/Acetaminophen [[place] 1 tab PO Q4HR PRN 3 Days #18 tab 03/04/19 5-325] Allergies Allergy/AdvReac Type Severity Reaction Status Date / Time No Known Allergies Allergy Verified 04/16/19 01:29 Review of Systems ROS Statement: Those systems with pertinent positive or pertinent negative responses have been documented in the HPI. ROS Other: All systems not noted in ROS Statement are negative. Constitutional: Reports: fever Respiratory: Denies: cough, dyspnea Cardiovascular: Denies: chest pain, palpitations, edema Gastrointestinal: Reports: nausea, vomiting. 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18, crohns disease, COLOSTOMY History of Any Multi-Drug Resistant Organisms: None Reported Past Surgical History: Bowel Resection, Hernia Repair Additional Past Surgical History / Comment(s): colostomy,reserved 03/15, PICC LINE ( removed 10/13) Past Anesthesia/Blood Transfusion Reactions: No Reported Reaction Additional Past Anesthesia/Blood Transfusion Reaction / Comment(s): pt stated has never had anesthesia Past Psychological History: No Psychological Hx Reported Smoking Status: Never smoker Past Alcohol Use History: None Reported Past Drug Use History: Marijuana - Past Family History Mother Family Medical History: No Reported History Father Additional Family Medical History / Comment(s): djd-hip General Exam Limitations: no limitations General appearance: alert, in no apparent distress Head exam: Present: atraumatic, normocephalic Eye exam: Present: normal appearance. Absent: scleral icterus, conjunctival injection ENT exam: Present: normal oropharynx Respiratory exam: Present: normal lung sounds bilaterally. Absent: respiratory distress, wheezes, rales, rhonchi, stridor Cardiovascular Exam: Present: regular rate, normal rhythm, normal heart sounds. Absent: systolic murmur, diastolic murmur, rubs, gallop GI/Abdominal exam: Present: soft. Absent: distended, tenderness, guarding, rebound, rigid, mass Extremities exam: Present: normal inspection, normal capillary refill. Absent: pedal edema, calf tenderness Back exam: Present: normal inspection. Absent: CVA tenderness (R), CVA tenderness (L) Neurological exam: Present: alert Skin exam: Present: warm, dry, intact, normal color. Absent: rash Course Vital Signs 04/16/19 04/16/19 04/16/19 01:26 03:29 04:55 Temperature 100.9 F H 99.6 F Pulse Rate 114 H 80 84 Respiratory 16 18 18 Rate Blood Pressure 111/65 134/77 138/86 O2 Sat by Pulse 98 98 98 Oximetry Medical Decision Making - Medical Decision Making Patient is 34-year-old man with fever, vomiting, leukocytosis. Given that he had recent colostomy reversal, an effort to find the etiology was fever CT abdomen is ordered which does show a recurrence of left-sided hydronephrosis which he had last month. He was seen by urology at that time. They're therefore consulted at this time. They will see the patient regarding possibility of nephrostomy tube placement. - Lab Data Result diagrams: 04/16/19 01:35 04/16/19 01:35 Lab Results 04/16/19 04/16/19 04/16/19 Range/Units 01:35 01:35 03:34 WBC 27.2 H (3.8-10.6) k/uL RBC 4.36 (4.30-5.90) m/uL Hgb 11.7 L (13.0-17.5) gm/dL Hct 34.6 L (39.0-53.0) % MCV 79.5 L (80.0-100.0) fL MCH 26.7 (25.0-35.0) pg MCHC 33.7 (31.0-37.0) g/dL RDW 14.7 (11.5-15.5) % Plt Count 432 (150-450) k/uL Neutrophils % 90 % Lymphocytes % 4 % Monocytes % 4 % Eosinophils % 0 % Basophils % 1 % Neutrophils # 24.4 H (1.3-7.7) k/uL Lymphocytes # 1.0 (1.0-4.8) k/uL Monocytes # 1.2 H (0-1.0) k/uL Eosinophils # 0.1 (0-0.7) k/uL Basophils # 0.3 H (0-0.2) k/uL Sodium 136 L (137-145) mmol/L Potassium 4.1 (3.5-5.1) mmol/L Chloride 99 (98-107) mmol/L Carbon Dioxide 27 (22-30) mmol/L Anion Gap 10 mmol/L BUN 11 (9-20) mg/dL Creatinine 0.98 (0.66-1.25) mg/dL Est GFR (CKD-EPI)AfAm >90 (>60 ml/min/1.73 sqM) Est GFR (CKD-EPI)NonAf >90 (>60 ml/min/1.73 sqM) Glucose 113 H (74-99) mg/dL Plasma Lactic Acid Fermin 1.0 (0.7-2.0) mmol/L Calcium 9.6 (8.4-10.2) mg/dL Total Bilirubin 0.8 (0.2-1.3) mg/dL AST 13 L (17-59) U/L ALT 16 L (21-72) U/L Alkaline Phosphatase 72 (38-126) U/L Total Protein 7.5 (6.3-8.2) g/dL Albumin 3.9 (3.5-5.0) g/dL Urine Color Urine Appearance (Clear) Urine pH (5.0-8.0) Ur Specific Shirley (1.001-1.035) Urine Protein (Negative) Urine Glucose (UA) (Negative) Urine Ketones (Negative) Urine Blood (Negative) Urine Nitrite (Negative) Urine Bilirubin (Negative) Urine Urobilinogen (<2.0) mg/dL Ur Leukocyte Esterase (Negative) Urine RBC (0-5) /hpf Urine WBC (0-5) /hpf Ur Squamous Epith Cells (0-4) /hpf Urine Bacteria (None) /hpf 04/16/19 Range/Units 04:53 WBC (3.8-10.6) k/uL RBC (4.30-5.90) m/uL Hgb (13.0-17.5) gm/dL Hct (39.0-53.0) % MCV (80.0-100.0) fL MCH (25.0-35.0) pg MCHC (31.0-37.0) g/dL RDW (11.5-15.5) % Plt Count (150-450) k/uL Neutrophils % % Lymphocytes % % Monocytes % % Eosinophils % % Basophils % % Neutrophils # (1.3-7.7) k/uL Lymphocytes # (1.0-4.8) k/uL Monocytes # (0-1.0) k/uL Eosinophils # (0-0.7) k/uL Basophils # (0-0.2) k/uL Sodium (137-145) mmol/L Potassium (3.5-5.1) mmol/L Chloride (98-107) mmol/L Carbon Dioxide (22-30) mmol/L Anion Gap mmol/L BUN (9-20) mg/dL Creatinine (0.66-1.25) mg/dL Est GFR (CKD-EPI)AfAm (>60 ml/min/1.73 sqM) Est GFR (CKD-EPI)NonAf (>60 ml/min/1.73 sqM) Glucose (74-99) mg/dL Plasma Lactic Acid Fermin (0.7-2.0) mmol/L Calcium (8.4-10.2) mg/dL Total Bilirubin (0.2-1.3) mg/dL AST (17-59) U/L ALT (21-72) U/L Alkaline Phosphatase (38-126) U/L Total Protein (6.3-8.2) g/dL Albumin (3.5-5.0) g/dL Urine Color Light Yellow Urine Appearance Clear (Clear) Urine pH 7.0 (5.0-8.0) Ur Specific [place] 1.043 H (1.001-1.035) Urine Protein Negative (Negative) Urine Glucose (UA) Negative (Negative) Urine Ketones Negative (Negative) Urine Blood Negative (Negative) Urine Nitrite Negative (Negative) Urine Bilirubin Negative (Negative) Urine Urobilinogen <2.0 (<2.0) mg/dL Ur Leukocyte Esterase Small H (Negative) Urine RBC <1 (0-5) /hpf Urine WBC 12 H (0-5) /hpf Ur Squamous Epith Cells <1 (0-4) /hpf Urine Bacteria Rare H (None) /hpf Disposition Clinical Impression: Hydronephrosis, Fever, Vomiting, Leukocytosis Disposition: ADMITTED IP TO THIS HOSP Condition: Fair Referrals: Yo Tejeda MD [Primary Care Provider] - 1-2 days
[2019-04-16] MEDS: SODIUM CHLORIDE 0.9% 1,000 ML IV SCH ×2 (06:30→15:34)
[2019-04-16] MEDS ORDERED: ONDANSETRON 4 MG/2 ML VIAL IVP PRN (08:00)
[2019-04-16 10:02] VITALS: BMI 24.7
[2019-04-16] MEDS: CHOLECALCIFEROL 1,000 UNIT TAB PO SCH (10:10)
[2019-04-16] MEDS ORDERED: HEPARIN SODIUM,PORCINE 30 ML 30 ML ONE (10:26)
--- NOTE | 2019-04-16 10:30 | P.GSCN ---
History of Present Illness Consult date: 04/16/19 Reason for Consult: left Hydronephrosis History of present illness: Mr. Leonard is 34 yo male that that presented to the ED with N/V and fever. Of note he underwent LAR and colostmy to reversal on february 26, post operatively he developed left hydro. He underwent attempted stent placement and attempted PCN placement . Repeat imaging showed resolution on hydro. He underwent CT abd/pelvis which showed left moderate hydroureter, no other abnormalities identified. Denies any hematuria, Dysuria or flank pain. 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18, crohns disease, COLOSTOMY History of Any Multi-Drug Resistant Organisms: None Reported Past Surgical History: Bowel Resection, Hernia Repair Additional Past Surgical History / Comment(s): colostomy,reserved 03/15, PICC LINE ( removed 10/13) Past Anesthesia/Blood Transfusion Reactions: No Reported Reaction Additional Past Anesthesia/Blood Transfusion Reaction / Comm: pt stated has never had anesthesia Past Psychological History: No Psychological Hx Reported Smoking Status: Never smoker Past Alcohol Use History: None Reported Past Drug Use History: Marijuana - Past Family History Mother Family Medical History: No Reported History Father Additional Family Medical History / Comment(s): djd-hip Medications and Allergies Home Medications Medication Instructions Recorded Confirmed Type Cholecalciferol (Vitamin D3) 2,000 unit PO DAILY 12/03/18 04/16/19 History [Vitamin D3] Allergies Allergy/AdvReac Type Severity Reaction Status Date / Time No Known Allergies Allergy Verified 04/16/19 01:29 Surgical - Exam Vital Signs Temp Pulse Resp BP Pulse Ox 100.9 F H 114 H 16 111/65 98 04/16/19 01:26 04/16/19 01:26 04/16/19 01:26 04/16/19 01:26 04/16/19 01:26 - General well developed, well nourished, no distress, no pain - Eyes normal ocular movement, no pale - ENT normal nares, no hearing loss - Respiratory normal expansion, normal respiratory effort - Abdomen Abdomen: soft, non tender, surgical scars (midline ) - Neurologic normal coordination, normal sensation - Psychiatric oriented to time, oriented to person, oriented to place, speech is normal Results - Labs 04/16/19 01:35 04/16/19 01:35 Abnormal Lab Results - Last 24 Hours (Table) 04/16/19 04/16/19 04/16/19 Range/Units 01:35 01:35 04:53 WBC 27.2 H (3.8-10.6) k/uL Hgb 11.7 L (13.0-17.5) gm/dL Hct 34.6 L (39.0-53.0) % MCV 79.5 L (80.0-100.0) fL Neutrophils # 24.4 H (1.3-7.7) k/uL Monocytes # 1.2 H (0-1.0) k/uL Basophils # 0.3 H (0-0.2) k/uL Sodium 136 L (137-145) mmol/L Glucose 113 H (74-99) mg/dL AST 13 L (17-59) U/L ALT 16 L (21-72) U/L Ur Specific [place] 1.043 H (1.001-1.035) Ur Leukocyte Esterase Small H (Negative) Urine WBC 12 H (0-5) /hpf Urine Bacteria Rare H (None) /hpf Diabetes panel 04/16/19 Range/Units 01:35 Sodium 136 L (137-145) mmol/L Potassium 4.1 (3.5-5.1) mmol/L Chloride 99 (98-107) mmol/L Carbon Dioxide 27 (22-30) mmol/L BUN 11 (9-20) mg/dL Creatinine 0.98 (0.66-1.25) mg/dL Glucose 113 H (74-99) mg/dL Calcium 9.6 (8.4-10.2) mg/dL AST 13 L (17-59) U/L ALT 16 L (21-72) U/L Alkaline Phosphatase 72 (38-126) U/L Total Protein 7.5 (6.3-8.2) g/dL Albumin 3.9 (3.5-5.0) g/dL Calcium panel 04/16/19 Range/Units 01:35 Calcium 9.6 (8.4-10.2) mg/dL Albumin 3.9 (3.5-5.0) g/dL Pituitary panel 04/16/19 Range/Units 01:35 Sodium 136 L (137-145) mmol/L Potassium 4.1 (3.5-5.1) mmol/L Chloride 99 (98-107) mmol/L Carbon Dioxide 27 (22-30) mmol/L BUN 11 (9-20) mg/dL Creatinine 0.98 (0.66-1.25) mg/dL Glucose 113 H (74-99) mg/dL Calcium 9.6 (8.4-10.2) mg/dL Adrenal panel 04/16/19 Range/Units 01:35 Sodium 136 L (137-145) mmol/L Potassium 4.1 (3.5-5.1) mmol/L Chloride 99 (98-107) mmol/L Carbon Dioxide 27 (22-30) mmol/L BUN 11 (9-20) mg/dL Creatinine 0.98 (0.66-1.25) mg/dL Glucose 113 H (74-99) mg/dL Calcium 9.6 (8.4-10.2) mg/dL Total Bilirubin 0.8 (0.2-1.3) mg/dL AST 13 L (17-59) U/L ALT 16 L (21-72) U/L Alkaline Phosphatase 72 (38-126) U/L Total Protein 7.5 (6.3-8.2) g/dL Albumin 3.9 (3.5-5.0) g/dL - Imaging CT scan - abdomen: image reviewed (Left sided hydroureteronephrosis) Assessment and Plan Assessment: 34 yo male presents with sepsis, CT showed left sided hydronephrosis. He is S/P LAR colostomy reversal in 02/2019, he developed hydro post operatively Plan: -previous Stent placement were unscususfull, repeat attempt unlikely to succeed. Will recommend to undergo left PCN placement by IR -Continue Abx -PT/INR -Trend WBC
[2019-04-16] MEDS ORDERED: LIDOCAINE 1% INJ 10MG/ML (20 ML MDV) ONE (10:33)
[2019-04-16] MEDS ORDERED: fentaNYL (PF) 50 MCG/ML 2 ML AMP ONE (11:00)
[2019-04-16 11:07] LABS: Partial Thromboplastin Time 32.8 sec (22.0-30.0)
[2019-04-16] MEDS ORDERED: LIDOCAINE 1% INJ 10MG/ML (20 ML MDV) SQ ONE (11:15)
[2019-04-16] MEDS ORDERED: fentaNYL (PF) 50 MCG/ML 2 ML AMP IVP ONE ×2 (11:15→11:18)
[2019-04-16] MEDS ORDERED: MIDAZOLAM (PF) 2 MG/2 ML VIAL IVP ONE ×2 (11:15→11:18)
[2019-04-16] MEDS ORDERED: ceFAZolin 1,000 MG VIAL IVPB ONE (11:35)
[2019-04-16] MEDS ORDERED: IOPAMIDOL-250 100ML BTL IV ONE (11:36)
--- NOTE | 2019-04-16 13:35 | IR ---
EXAMINATION TYPE: IR nephrostomy DATE OF EXAM: 04/16/2019 COMPARISON: CT 04/16/2019 HISTORY: Hydronephrosis, ureteral obstruction PROCEDURE: Maximal barrier technique was utilized. The skin overlying the left kidney was localized using ultrasound and the overlying skin prepped and draped. Ultrasound was utilized with sterile holly hnique. Lidocaine used for local anesthesia. Skin eleni was made with a scalpel. Access was gained u nder ultrasound with a 21-gauge needle to the lower pole calyx posteriorly of the left kidney. Urine returned in the hub of the needle. A 0.018 inch wire was advanced. The access site was dilated an d subsequently an 8French catheter was advanced over wire in the renal pelvis and fixed in place. Ur ine returned in the hub of the catheter. An injection of contrast material verified placement. Danya ter was fixed to the skin with 2-0 silk and a sterile dressing was placed. The patient remained in s table condition without complication. The patient was discharged to observation. 1.5 Minutes fluoroscopy time. 40 intraoperative C-arm images. Conscious sedation time 17 minutes by an independent health care provider. IMPRESSION: STATUS POST 8 [place]ESE NEPHROSTOMY TUBE PLACEMENT WITH ULTRASOUND AND FLUOROSCOPIC GUIDANCE . THIS PROCEDURE WAS PERFORMED BY THE UNDERSIGNED.
[2019-04-16] MEDS ORDERED: ACETAMINOPHEN TAB 325 MG TAB PO PRN (15:09)
[2019-04-16 17:19] LABS: Basophils # (A) 0.2 k/uL (0-0.2); Basophils % (A) 1 %; Eosinophils # (A) 0.3 k/uL (0-0.7); Eosinophils % (A) 1 %; HCT 32.4 % (39.0-53.0); HGB 10.9 gm/dL (13.0-17.5); Lymphocytes # (A) 1.4 k/uL (1.0-4.8); Lymphocytes % (A) 7 %; MCH 26.9 pg (25.0-35.0); MCHC 33.6 g/dL (31.0-37.0); Mean Platelet Volume 7.4; Monocytes # (A) 0.8 k/uL (0-1.0); Monocytes % (A) 4 %; Neutrophils # (A) 18.3 k/uL (1.3-7.7); Neutrophils % (A) 87 %; Platelet Count 337 k/uL (150-450); RBC 4.05 m/uL (4.30-5.90); RDW 13.6 % (11.5-15.5); WBC 21.1 k/uL (3.8-10.6)
[2019-04-16 17:40] LABS: African American GFR (CKD) >90 (>60 ml/min/1.73 sqM); Anion Gap 10 mmol/L; Blood Urea Nitrogen 9 mg/dL (9-20); Calcium 8.9 mg/dL (8.4-10.2); Carbon Dioxide 26 mmol/L (22-30); Chloride 102 mmol/L (98-107); Glucose 86 mg/dL (74-99); Potassium 4.1 mmol/L (3.5-5.1); Sodium 138 mmol/L (137-145)
[2019-04-16] MEDS: HEPARIN SODIUM,PORCINE 5,000 UNIT/ML 1 ML VIAL SQ SCH (21:40)
[2019-04-16] MEDS: FAMOTIDINE 20 MG TAB PO SCH (21:40)
[2019-04-17] MEDS: SODIUM CHLORIDE 0.9% 1,000 ML IV SCH ×3 (01:49→20:53)
[2019-04-17] MEDS: FAMOTIDINE 20 MG TAB PO SCH ×2 (08:00→20:52)
[2019-04-17] MEDS: CHOLECALCIFEROL 1,000 UNIT TAB PO SCH (08:00)
[2019-04-17] MEDS: HEPARIN SODIUM,PORCINE 5,000 UNIT/ML 1 ML VIAL SQ SCH ×2 (08:00→20:52)
--- NOTE | 2019-04-17 10:23 | P.PN ---
Subjective Progress Note Date: 04/17/19 The patient is in the hospital with urinary tract infection, hydronephrosis. The patient's history dates to a colostomy takedown after he had surgery for Crohn's disease. After the colostomy takedown he was identified to have hydronephrosis. attempted to do retrogrades and placement of stent but failed. The kidney was decompressed at that point in time. He presented with hydronephrosis on the left side. A nephrostomy tube was placed yesterday. He feels much better. He is afebrile. The urine is draining out of the left nephrostomy tube with ease. Of note the patient states that he thought he had much more watery diarrhea type stools before the nephrostomy tube was placed and subsequently this has cleared. This raises the possibility of a ureteralcolo Fistula. He will continue with the nephrostomy tube. Further evaluation and treatment will be decided after the infection subsides the testing can be performed to clarify the status of the ureter and colon. Objective - Vital Signs Vital signs: Vital Signs Temp 98.3 F 04/17/19 05:00 Pulse 67 04/17/19 05:00 Resp 18 04/17/19 05:00 BP 130/81 04/17/19 05:00 Pulse Ox 99 04/17/19 05:00 Intake & Output 04/16/19 04/17/19 04/17/19 18:59 06:59 18:59 Intake Total 150 600 Output Total 600 725 Balance -450 -125 Intake: IV 150 Oral 600 Output: Urine 600 725 Other: # Voids 1 # Bowel Movements 0 - Labs CBC & Chem 7: 04/16/19 16:57 04/16/19 16:57 Labs: Abnormal Lab Results - Last 24 Hours (Table) 04/16/19 04/16/19 Range/Units 10:38 16:57 WBC 21.1 H (3.8-10.6) k/uL RBC 4.05 L (4.30-5.90) m/uL Hgb 10.9 L (13.0-17.5) gm/dL Hct 32.4 L (39.0-53.0) % Neutrophils # 18.3 H (1.3-7.7) k/uL APTT 32.8 H (22.0-30.0) sec Microbiology - Last 24 Hours (Table) 04/16/19 03:34 Blood Culture - Preliminary Blood No Growth after 24 hours 04/16/19 04:53 Urine Culture - Preliminary Urine,Voided
--- NOTE | 2019-04-17 10:36 | P.HPIM ---
History of Present Illness H&P Date: 04/16/19 Chief Complaint: Fever Patient is a 40-year-old male with a known history of seizure disorder, history of bowel resection, colostomy with reversal in February 2019 and history of ureteral stent placement due to hydronephrosis about one month ago came to ER with the complaints of fever or not feeling well since yesterday night. Patient has been having hot and cold flashes and started vomiting. Patient did have 3 nonbilious vomiting at home. No hematemesis. No melena. chest pain or short. no abdominal pain or flank pain. denied any dysuria or hematuria. no commerce from production. no headache or dizziness or lightheadedness. ct of the abdomen pelvis showed left moderate hydroureter. patient was seen by urology and was taken to or for possible nephrostomy tube placement. Review of Systems Constitutional: Patient denies any fever or chills . No generalized weakness or weight loss. Abdomen: Nausea vomiting or abdominal pain. Cardiovascular: Patient denies any chest pain or short of breath no palpitations. Respiratory: patient denied any cough is from production. No shortness of breath Neurologic: Patient denied any numbness or tingling headache. Musculoskeletal: Patient denies any complaints of joint swelling or deformity. Skin: Negative Psychiatric: Negative Endocrine: No heat or cold intolerance. No recent weight gain. Genitourinary: No dysuria or hematuria. 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18, crohns disease, COLOSTOMY History of Any Multi-Drug Resistant Organisms: None Reported Past Surgical History: Bowel Resection, Hernia Repair Additional Past Surgical History / Comment(s): colostomy,reserved 03/15, PICC LINE ( removed 10/13) Past Anesthesia/Blood Transfusion Reactions: No Reported Reaction Additional Past Anesthesia/Blood Transfusion Reaction / Comment(s): pt stated has never had anesthesia Past Psychological History: No Psychological Hx Reported Smoking Status: Never smoker Past Alcohol Use History: None Reported Past Drug Use History: Marijuana - Past Family History Mother Family Medical History: No Reported History Additional Family Medical History / Comment(s): Mother is healthy Father Additional Family Medical History / Comment(s): djd-hip Medications and Allergies Home Medications Medication Instructions Recorded Confirmed Type Cholecalciferol (Vitamin D3) 2,000 unit PO DAILY 12/03/18 04/16/19 History [Vitamin D3] Allergies Allergy/AdvReac Type Severity Reaction Status Date / Time No Known Allergies Allergy Verified 04/16/19 01:29 Physical Exam Vitals: Vital Signs Temp Pulse Pulse Resp BP BP Pulse Ox 04/16/19 07:25 98.2 F 89 16 139/67 99 04/16/19 06:31 99.4 F 94 18 135/90 98 04/16/19 04:55 99.6 F 84 18 138/86 98 04/16/19 03:29 80 18 134/77 98 04/16/19 01:26 100.9 F H 114 H 16 111/65 98 Intake and Output 04/15/19 04/16/19 04/16/19 22:59 06:59 14:59 Other: Weight 71.668 kg PHYSICAL EXAMINATION: Patient is lying in the bed comfortably, no acute distress, awake alert and oriented.. HEENT: Normocephalic. Neck is supple. Pupils reactive. Nostrils clear. Oral cavity is moist. Ears reveal no drainage. Neck reveals no JVD, carotid bruits, or thyromegaly. CHEST EXAMINATION: Trachea is central. Symmetrical expansion. Lung marrufo clear to auscultation and percussion. CARDIAC: Normal S1, S2 with no gallops. No murmurs ABDOMEN: Soft. Bowel sounds normal. No organomegaly. No abdominal bruits. Extremities: reveal no edema. No clubbing or cyanosis Neurologically awake, alert, oriented x3 with well-coordinated movements. No focal deficits noted Skin: No rash or skin lesions. Psychiatric: Coperative. Nonsuicidal Musculoskeletal: No joint swelling or deformity. Normal range of motion. Results CBC & Chem 7: 04/16/19 16:57 04/16/19 16:57 Labs: Abnormal Lab Results - Last 24 Hours (Table) 04/16/19 04/16/19 04/16/19 Range/Units 01:35 01:35 04:53 WBC 27.2 H (3.8-10.6) k/uL Hgb 11.7 L (13.0-17.5) gm/dL Hct 34.6 L (39.0-53.0) % MCV 79.5 L (80.0-100.0) fL Neutrophils # 24.4 H (1.3-7.7) k/uL Monocytes # 1.2 H (0-1.0) k/uL Basophils # 0.3 H (0-0.2) k/uL APTT (22.0-30.0) sec Sodium 136 L (137-145) mmol/L Glucose 113 H (74-99) mg/dL AST 13 L (17-59) U/L ALT 16 L (21-72) U/L Ur Specific [place] 1.043 H (1.001-1.035) Ur Leukocyte Esterase Small H (Negative) Urine WBC 12 H (0-5) /hpf Urine Bacteria Rare H (None) /hpf 04/16/19 Range/Units 10:38 WBC (3.8-10.6) k/uL Hgb (13.0-17.5) gm/dL Hct (39.0-53.0) % MCV (80.0-100.0) fL Neutrophils # (1.3-7.7) k/uL Monocytes # (0-1.0) k/uL Basophils # (0-0.2) k/uL APTT 32.8 H (22.0-30.0) sec Sodium (137-145) mmol/L Glucose (74-99) mg/dL AST (17-59) U/L ALT (21-72) U/L Ur Specific [place] (1.001-1.035) Ur Leukocyte Esterase (Negative) Urine WBC (0-5) /hpf Urine Bacteria (None) /hpf Microbiology - Last 24 Hours (Table) 04/16/19 04:53 Urine Culture - Preliminary Urine,Voided Thrombosis Risk Factor Assmnt - DVT/VTE Prophylaxis DVT/VTE Prophylaxis: Pharmacologic Prophylaxis ordered - Choose All That Apply Any of the Below Risk Factors Present?: Yes Other Risk Factors: No Other congenital or acquired thrombophilia - If yes, enter type in comment: No Assessment and Plan Assessment: Left-sided moderate hydronephrosis and hydroureter. With recent history of stent placement. Acute urinary tract infection with possible sepsis Crohn's disease History of colectomy and colostomy bag placement and reversal. Nausea vomiting secondary to #1 DVT prophylaxis with heparin subcu plan: Patient will be continued on IV hydration. Continue with antibiotics in the form of Rocephin and urology has seen the patient. Patient was taken to or for possible nephrostomy placement today. Follow-up urine culture report. Continue the pain management if needed and symptomatic management for nausea vomiting. Further recommendations based on the clinical course. Time with Patient: Greater than 30
[2019-04-17 13:58] VITALS: RESP 16
--- NOTE | 2019-04-18 02:35 | P.PN ---
Subjective Progress Note Date: 04/17/19 Principal diagnosis: Left Moderate hydronephrosis and failed stent placement. Status post nephrostomy tube placement on 04/16/2019 Sepsis secondary to urinary tract infection. Patient is a 40-year-old male with a known history of seizure disorder, history of bowel resection, colostomy with reversal in February 2019 and history of ureteral stent placement due to hydronephrosis about one month ago came to ER with the complaints of fever or not feeling well since yesterday night. Patient has been having hot and cold flashes and started vomiting. Patient did have 3 nonbilious vomiting at home. No hematemesis. No melena. chest pain or short. no abdominal pain or flank pain. denied any dysuria or hematuria. no commerce from production. no headache or dizziness or lightheadedness. ct of the abdomen pelvis showed left moderate hydroureter. patient was seen by urology and was taken to or for possible nephrostomy tube placement. 04/17/2019` Patient is currently lying in the bed comfortably. No complaints of abdominal pain. Status post nephrostomy tube placement. Patient's diarrhea is improved today., Placement of nephrostomy tube. Possibility of ureterocolonic fistula is being considered as per neurology. Further studies pending infection clearance. Currently being continued on ceftriaxone. Cultures pending. Leukocytosis is improving. No chills no fever. Neurology is following. Current medications reviewed. Objective - Vital Signs Vital signs: Vital Signs Temp 98.3 F 04/17/19 05:00 Pulse 67 04/17/19 05:00 Resp 18 04/17/19 05:00 BP 130/81 04/17/19 05:00 Pulse Ox 99 04/17/19 05:00 Intake & Output 04/16/19 04/17/19 04/17/19 18:59 06:59 18:59 Intake Total 150 600 Output Total 600 725 Balance -450 -125 Intake: IV 150 Oral 600 Output: Urine 600 725 Other: # Voids 1 # Bowel Movements 0 - Exam PHYSICAL EXAMINATION: Patient is lying in the bed comfortably, no acute distress, awake alert and oriented.. HEENT: Normocephalic. Neck is supple. Pupils reactive. Nostrils clear. Oral cavity is moist. Ears reveal no drainage. Neck reveals no JVD, carotid bruits, or thyromegaly. CHEST EXAMINATION: Trachea is central. Symmetrical expansion. Lung marrufo clear to auscultation and percussion. CARDIAC: Normal S1, S2 with no gallops. No murmurs ABDOMEN: Soft. Bowel sounds normal. No organomegaly. No abdominal bruits. Extremities: reveal no edema. No clubbing or cyanosis Neurologically awake, alert, oriented x3 with well-coordinated movements. No focal deficits noted Skin: No rash or skin lesions. Psychiatric: Coperative. Nonsuicidal Musculoskeletal: No joint swelling or deformity. Normal range of motion. - Labs CBC & Chem 7: 04/16/19 16:57 04/16/19 16:57 Labs: Abnormal Lab Results - Last 24 Hours (Table) 04/16/19 04/16/19 Range/Units 10:38 16:57 WBC 21.1 H (3.8-10.6) k/uL RBC 4.05 L (4.30-5.90) m/uL Hgb 10.9 L (13.0-17.5) gm/dL Hct 32.4 L (39.0-53.0) % Neutrophils # 18.3 H (1.3-7.7) k/uL APTT 32.8 H (22.0-30.0) sec Microbiology - Last 24 Hours (Table) 04/16/19 03:34 Blood Culture - Preliminary Blood No Growth after 24 hours 04/16/19 04:53 Urine Culture - Preliminary Urine,Voided Assessment and Plan Assessment: Left-sided moderate hydronephrosis and hydroureter. With recent history of stent placement. Status post nephrostomy placement on 04/16/2019 Acute urinary tract infection with sepsis Crohn's disease History of colectomy and colostomy bag placement and reversal. Nausea vomiting secondary to #1 DVT prophylaxis with heparin subcu plan: Patient will be continued on IV hydration. Continue with antibiotics in the form of Rocephin and urology has seen the patient. Status post nephrostomy placement . Follow-up urine culture report. Continue the pain management if needed and symptomatic management for nausea vomiting. Further recommendations based on the clinical course. Time with Patient: Greater than 30
[2019-04-18] MEDS: FAMOTIDINE 20 MG TAB PO SCH ×2 (07:56→20:32)
[2019-04-18] MEDS: CHOLECALCIFEROL 1,000 UNIT TAB PO SCH (07:56)
[2019-04-18] MEDS: HEPARIN SODIUM,PORCINE 5,000 UNIT/ML 1 ML VIAL SQ SCH ×2 (07:56→20:32)
[2019-04-18] MEDS: SODIUM CHLORIDE 0.9% 1,000 ML IV SCH ×2 (07:57→17:29)
--- NOTE | 2019-04-19 02:50 | P.PN ---
Subjective Progress Note Date: 04/18/19 Principal diagnosis: Left Moderate hydronephrosis and failed stent placement. Status post nephrostomy tube placement on 04/16/2019 Sepsis secondary to urinary tract infection. Patient is a 40-year-old male with a known history of seizure disorder, history of bowel resection, colostomy with reversal in February 2019 and history of ureteral stent placement due to hydronephrosis about one month ago came to ER with the complaints of fever or not feeling well since yesterday night. Patient has been having hot and cold flashes and started vomiting. Patient did have 3 nonbilious vomiting at home. No hematemesis. No melena. chest pain or short. no abdominal pain or flank pain. denied any dysuria or hematuria. no commerce from production. no headache or dizziness or lightheadedness. ct of the abdomen pelvis showed left moderate hydroureter. patient was seen by urology and was taken to or for possible nephrostomy tube placement. 04/17/2019` Patient is currently lying in the bed comfortably. No complaints of abdominal pain. Status post nephrostomy tube placement. Patient's diarrhea is improved today., Placement of nephrostomy tube. Possibility of ureterocolonic fistula is being considered as per neurology. Further studies pending infection clearance. Currently being continued on ceftriaxone. Cultures pending. Leukocytosis is improving. No chills no fever. urology is following. 04/18/2019 Patient denied any complaints of abdominal pain. Urine in the colostomy bag is clear. No fever no chills. Otherwise follow-up CBC tomorrow and final urine culture report. Possible discharge tomorrow with urology for recommendations and antibiotic course as outpatient. Current medications reviewed. Objective - Vital Signs Vital signs: Vital Signs Temp 98.7 F 04/18/19 12:45 Pulse 80 04/18/19 12:45 Resp 16 04/18/19 12:45 BP 131/85 04/18/19 12:45 Pulse Ox 95 04/18/19 12:45 Intake & Output 04/17/19 04/18/19 04/18/19 18:59 06:59 18:59 Intake Total 300 Output Total 550 550 675 Balance -283 -322 -751 Intake: Intake, IV Titration 300 Amount Sodium Chloride 0.9% 1, 300 000 ml @ 100 mls/hr IV . Q10H [facility] Rx#:[id number] Output: Urine 550 550 675 Other: # Voids 0 # Bowel Movements 0 - Exam PHYSICAL EXAMINATION: Patient is lying in the bed comfortably, no acute distress, awake alert and oriented.. HEENT: Normocephalic. Neck is supple. Pupils reactive. Nostrils clear. Oral cavity is moist. Ears reveal no drainage. Neck reveals no JVD, carotid bruits, or thyromegaly. CHEST EXAMINATION: Trachea is central. Symmetrical expansion. Lung marrufo clear to auscultation and percussion. CARDIAC: Normal S1, S2 with no gallops. No murmurs ABDOMEN: Soft. Bowel sounds normal. No organomegaly. No abdominal bruits. Extremities: reveal no edema. No clubbing or cyanosis Neurologically awake, alert, oriented x3 with well-coordinated movements. No focal deficits noted Skin: No rash or skin lesions. Psychiatric: Coperative. Nonsuicidal Musculoskeletal: No joint swelling or deformity. Normal range of motion. - Labs CBC & Chem 7: 04/16/19 16:57 04/16/19 16:57 Labs: Microbiology - Last 24 Hours (Table) 04/16/19 04:53 Urine Culture - Final Urine,Voided Escherichia coli 04/16/19 03:34 Blood Culture - Preliminary Blood No Growth after 48 hours Assessment and Plan Assessment: Left-sided moderate hydronephrosis and hydroureter. With recent history of stent placement. Status post nephrostomy placement on 04/16/2019 Acute urinary tract infection with sepsis Crohn's disease History of colectomy and colostomy bag placement and reversal. Nausea vomiting secondary to #1 DVT prophylaxis with heparin subcu plan: Patient will be continued on IV hydration. Continue with antibiotics in the form of Rocephin and urology has seen the patient. Status post nephrostomy placement . Follow-up urine culture report. Continue the pain management if needed and symptomatic management for nausea vomiting. Further recommendations based on the clinical course. Time with Patient: Greater than 30
[2019-04-19] MEDS: SODIUM CHLORIDE 0.9% 1,000 ML IV SCH (05:34)
[2019-04-19 07:25] VITALS: BP 142/103; PULSE 65; TEMP 97.9
[2019-04-19] MEDS: FAMOTIDINE 20 MG TAB PO SCH (08:36)
[2019-04-19] MEDS: CHOLECALCIFEROL 1,000 UNIT TAB PO SCH (08:37)
[2019-04-19 08:38] LABS: HCT 36.2 % (39.0-53.0); MCH 26.2 pg (25.0-35.0); MCV 79.6 fL (80.0-100.0); Mean Platelet Volume 7.1; Platelet Count 447 k/uL (150-450); RBC 4.55 m/uL (4.30-5.90); RDW 14.2 % (11.5-15.5); WBC 7.5 k/uL (3.8-10.6)
[2019-04-19] MEDS: HEPARIN SODIUM,PORCINE 5,000 UNIT/ML 1 ML VIAL SQ SCH (08:44)
[2019-04-19 09:03] LABS: African American GFR (CKD) >90 (>60 ml/min/1.73 sqM); Anion Gap 7 mmol/L; Blood Urea Nitrogen 3 mg/dL (9-20); Calcium 9.3 mg/dL (8.4-10.2); Carbon Dioxide 32 mmol/L (22-30); Chloride 102 mmol/L (98-107); Glucose 88 mg/dL (74-99); Potassium 4.6 mmol/L (3.5-5.1); Sodium 141 mmol/L (137-145)
--- NOTE | 2019-04-19 12:58 | P.PN ---
Progress Note - Text Progress Note Date: 04/19/19 The patient has no current complaints. He is afebrile. The nephrostomy tube is draining well. He states that over the weekend he has passed formed stools for the first time since his surgery. The urine culture showed E. coli. I explained to the patient and his mother in great detail the fact that the presence of hydronephrosis suggests that he has developed a left ureteral stricture. The fact that he had watery stools prior to nephrostomy tube placement suggests the possibility of a ureterocolonic fistula. I have prescribed Keflex, to which the E. coli is sensitive, and arrangements will be made for him to undergo a nephrostogram next week. Please notify me if I can be of any further assistance.
== END 2019-04-19 14:50 | disposition home or self-care (01) | DRG 854 ==
LOC: EC 01:20 → 4MS4W 05:50 → OBSVTOIN 11:20
PROVIDERS: ADMIT Hospitalist; ATTEND Hospitalist
PROC: 0T143JD Bypass Left Kidney Pelvis to Cutaneous with Synthetic Substitute, Percutaneous Approach (ICD-10-PCS; principal; 2019-04-16 10:46)
DX: A41.51 Sepsis due to Escherichia coli [E. coli] (principal); K50.90 Crohn's disease, unspecified, without complications; N13.6 Pyonephrosis; G40.909 Epilepsy, unspecified, not intractable, without status epilepticus; R19.7 Diarrhea, unspecified; Z90.49 Acquired absence of other specified parts of digestive tract
CPT/HCPCS: 36415; 50432; 71046; 74177; 80048; 80053; 81001; 83605; 85025; 85027; 85610; 85730; 87040; 87077; 87086; 87186; 96361; 96365; 96375; 99285

== ENCOUNTER → 2019-04-26 | Day surgery (SDC) | payer BC ==
[2019-04-23 10:21] VITALS: BMI 24.7
[~2019-04-26] MED LIST changes: +IOPAMIDOL-370 50ML BTL INJ ONE; -LACTATED RINGERS 1,000 ML IV SCH; -LIDOCAINE 1% 20 ML VIAL (10MG/ML) FOR IV START INTRADERMA PRN; +SODIUM CHLORIDE 0.9% 500 ML 500 ML IV ONE
[2019-04-26 08:18] VITALS: BP 117/76; PULSE 82; RESP 16; TEMP 98
--- NOTE | 2019-04-26 14:38 | IR ---
EXAMINATION TYPE: IR nephrostomy DATE OF EXAM: 04/26/2019 COMPARISON: 04/16/2019 HISTORY: Left ureteral obstruction TECHNIQUE: Fluoroscopic nephrostogram FINDINGS: Approximately 0.8 minutes of fluoroscopy in 4 images submitted. There is complete obstruction of the ureter at the level of the upper SI joint. No contrast was seen to pass this level. Nephrostomy tube appears in good position. IMPRESSION: 1. Complete obstruction of the mid to distal left ureter at the level of the upper left SI joint.
== END ==
LOC: CATHCVL 08:05
PROVIDERS: ATTEND Radiology Diagnostic Radiology
DX: N13.1 Hydronephrosis with ureteral stricture, not elsewhere classified (principal); K50.90 Crohn's disease, unspecified, without complications; Z90.49 Acquired absence of other specified parts of digestive tract
CPT/HCPCS: 50431; C1769; Q9967; 74425; 99212

== ENCOUNTER 2019-04-27 22:54 | Inpatient (IN) | payer BC ==
[2019-04-27] MEDS ORDERED: SODIUM CHLORIDE 0.9% 1,000 ML IV STA ×2 (23:35)
[2019-04-27] MEDS ORDERED: ACETAMINOPHEN TAB 500 MG TAB PO STA (23:35)
[2019-04-27] MEDS ORDERED: KETOROLAC 30 MG/ML 1 ML VIAL IVP STA (23:37)
[2019-04-27] MEDS ORDERED: ONDANSETRON 4 MG/2 ML VIAL IVP STA (23:38)
--- NOTE | 2019-04-27 23:43 | ED ---
General Adult HPI - General Source: patient Mode of arrival: ambulatory Limitations: no limitations <Boo Crockett - Last Filed: 04/27/19 23:39> <Marisel Wright - Last Filed: 04/28/19 02:40> - General Chief complaint: Headache Stated complaint: Headache, Fever Time Seen by Provider: 04/27/19 23:27 - History of Present Illness Initial comments: This 34-year-old male presents with a complaint of a fever. He has felt hot at home but has not measured it but does have a temperature of 102.5. He does complain of a slight headache as well but denies any neck pain. He relates a fairly complicated history. He states that he's had Crohn's disease with previous colostomy and subsequent reversal. He then was having problems afterwards with his left ureter. He apparently did not have flow to that ureter and over this past week had a nephrostomy tube placed by Dr. Gorman from urology. He apparently is going to be following at [facility] for possible additional procedures and possible ureteral reconstruction. He did have a urinary tract infection this past week and just stopped Keflex today. He does relate having some slight nonbloody diarrhea today. The headache started yesterday and the fever started today. His urine also has been more concentrated from his nephrostomy tube. He denies any blood in his urine. He denies any abdominal pain. There's been no cough or difficulty in breathing. He denies a sore throat. No other complaints or modifying factors. (Otoniel Crockett) - Related Data Home Medications Medication Instructions Recorded Confirmed Cholecalciferol [Vitamin D3 (25 5,000 unit PO Q48H 04/27/19 04/27/19 Mcg = 1000 Iu)] Vitamin A 8,000 unit PO Q48H 04/27/19 04/27/19 Allergies Allergy/AdvReac Type Severity Reaction Status Date / Time No Known Allergies Allergy Verified 04/27/19 23:13 Review of Systems ROS Other: All systems not noted in ROS Statement are negative. <Boo Crockett - Last Filed: 04/27/19 23:39> ROS Other: All systems not noted in ROS Statement are negative. <Marisel Wright - Last Filed: 04/28/19 02:40> ROS Statement: Those systems with pertinent positive or pertinent negative responses have been documented in the HPI. 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18, crohns disease, COLOSTOMY History of Any Multi-Drug Resistant Organisms: None Reported Past Surgical History: Bowel Resection, Hernia Repair Additional Past Surgical History / Comment(s): colostomy,reserved 03/15, PICC LINE ( removed 10/13), kidney drain Past Anesthesia/Blood Transfusion Reactions: No Reported Reaction Additional Past Anesthesia/Blood Transfusion Reaction / Comment(s): pt stated has never had anesthesia Past Psychological History: No Psychological Hx Reported Smoking Status: Never smoker Past Alcohol Use History: None Reported Past Drug Use History: Marijuana - Past Family History Mother Family Medical History: No Reported History Father Family Medical History: Musculoskeletal Disorder <Boo Crockett J - Last Filed: 04/27/19 23:39> General Exam Limitations: no limitations <Boo Crockett J - Last Filed: 04/27/19 23:39> - General Exam Comments Initial Comments: GENERAL: The patient is well nourished and well hydrated. VITAL SIGNS: Heart rate, blood pressure, respiratory rate reviewed as recorded in nurse's notes. EYES: Pupils are round and reactive. Extraocular movements are intact. No conjunctival / lid redness or swelling. ENT: No external evidence of injury, swelling, or ecchymosis. Airway is patent. Throat is clear. NECK: Nontender. No swelling or evidence of injury. No subcutaneous emphysema. Trachea is midline. No thyroid mass. HEART: Regular rate and rhythm. Good peripheral pulses. LUNGS/CHEST: Breath sounds clear and equal bilaterally. No rales, rhonchi, or wheezes. No ecchymosis, subcutaneous emphysema, or tenderness. ABDOMEN: Abdomen soft without tenderness. No palpable masses or organomegaly. No peritoneal signs. No abdominal wall swelling or ecchymosis. The nephrostomy tu be is in place in the left flank. There is no associated tenderness to this area. EXTREMITIES: No extremity tenderness. Normal muscle tone and function. No thoracolumbar tenderness. NEUROLOGIC: Sensation is grossly intact. Cranial nerve exam reveals face is symmetrical, tongue is midline, speech is clear. SKIN: No abrasions or ecchymosis is noted. No induration or masses noted. PSYCHIATRIC: Alert and oriented. Appropriate behavior and judgment. (Boo Crockett) Course Vital Signs 04/27/19 04/28/19 23:06 02:05 Temperature 102.5 F H 98.8 F Pulse Rate 100 72 Respiratory 18 18 Rate Blood Pressure 119/71 115/75 O2 Sat by Pulse 98 97 Oximetry Medical Decision Making <Boo Crockett - Last Filed: 04/27/19 23:39> - Lab Data Result diagrams: 04/28/19 00:15 04/28/19 00:15 <Marisel Wright - Last Filed: 04/28/19 02:40> - Medical Decision Making The patient was seen and examined. All diagnostics were reviewed. An IV is established and he is thoroughly hydrated. He also receives some Tylenol as well as some Toradol intravenously and Zofran intravenously. (Boo Crockett) Patient care was signed out to me by Dr. Crockett, patient with a history of Crohn's disease left-sided nephrostomy recurrent urinary tract infections presenting today with fever generalized malaise. A septic workup was initiated and a dose of Rocephin was given. Upon evaluation of the labs patient has leukocytosis with neutrophilia. Kidney function is within normal limits. Patient was reevaluated his fever has broke he is now very sweaty reports improvement in the headache and generalized malaise however still feeling ill. Given the patient's multiple medical comorbidities, recent antibiotic use, failed outpatient antibiotic treatment we will plan to admit the patient for further IV antibiotics and evaluation by urology. Patient has previously been evaluated by infectious disease and required PICC line for long-term antibiotics. (Marisel Wright) - Lab Data Lab Results 04/28/19 04/28/19 04/28/19 Range/Units 00:15 00:15 00:15 WBC 20.6 H (3.8-10.6) k/uL RBC 4.49 (4.30-5.90) m/uL Hgb 12.5 L (13.0-17.5) gm/dL Hct 34.5 L (39.0-53.0) % MCV 76.9 L (80.0-100.0) fL MCH 27.8 (25.0-35.0) pg MCHC 36.2 (31.0-37.0) g/dL RDW 14.2 (11.5-15.5) % Plt Count 268 (150-450) k/uL Neutrophils % 85 % Lymphocytes % 7 % Monocytes % 5 % Eosinophils % 1 % Basophils % 2 % Neutrophils # 17.5 H (1.3-7.7) k/uL Lymphocytes # 1.4 (1.0-4.8) k/uL Monocytes # 1.0 (0-1.0) k/uL Eosinophils # 0.1 (0-0.7) k/uL Basophils # 0.4 H (0-0.2) k/uL Sodium 134 L (137-145) mmol/L Potassium 4.3 (3.5-5.1) mmol/L Chloride 93 L (98-107) mmol/L Carbon Dioxide 31 H (22-30) mmol/L Anion Gap 10 mmol/L BUN 12 (9-20) mg/dL Creatinine 1.03 (0.66-1.25) mg/dL Est GFR (CKD-EPI)AfAm >90 (>60 ml/min/1.73 sqM) Est GFR (CKD-EPI)NonAf >90 (>60 ml/min/1.73 sqM) Glucose 101 H (74-99) mg/dL Plasma Lactic Acid Fermin 0.9 (0.7-2.0) mmol/L Calcium 9.6 (8.4-10.2) mg/dL Phosphorus 4.1 (2.5-4.5) mg/dL Magnesium 1.6 (1.6-2.3) mg/dL Total Bilirubin 1.1 (0.2-1.3) mg/dL AST 19 (17-59) U/L ALT 39 (21-72) U/L Alkaline Phosphatase 67 (38-126) U/L Total Protein 7.6 (6.3-8.2) g/dL Albumin 4.0 (3.5-5.0) g/dL Urine Color Urine Appearance (Clear) Urine pH (5.0-8.0) Ur Specific [place] (1.001-1.035) Urine Protein (Negative) Urine Glucose (UA) (Negative) Urine Ketones (Negative) Urine Blood (Negative) Urine Nitrite (Negative) Urine Bilirubin (Negative) Urine Urobilinogen (<2.0) mg/dL Ur Leukocyte Esterase (Negative) Urine RBC (0-5) /hpf Urine WBC (0-5) /hpf Urine WBC Clumps (None) /hpf Urine Bacteria (None) /hpf Hyaline Casts (0-2) /lpf Urine Mucus (None) /hpf 04/28/19 Range/Units 00:42 WBC (3.8-10.6) k/uL RBC (4.30-5.90) m/uL Hgb (13.0-17.5) gm/dL Hct (39.0-53.0) % MCV (80.0-100.0) fL MCH (25.0-35.0) pg MCHC (31.0-37.0) g/dL RDW (11.5-15.5) % Plt Count (150-450) k/uL Neutrophils % % Lymphocytes % % Monocytes % % Eosinophils % % Basophils % % Neutrophils # (1.3-7.7) k/uL Lymphocytes # (1.0-4.8) k/uL Monocytes # (0-1.0) k/uL Eosinophils # (0-0.7) k/uL Basophils # (0-0.2) k/uL Sodium (137-145) mmol/L Potassium (3.5-5.1) mmol/L Chloride (98-107) mmol/L Carbon Dioxide (22-30) mmol/L Anion Gap mmol/L BUN (9-20) mg/dL Creatinine (0.66-1.25) mg/dL Est GFR (CKD-EPI)AfAm (>60 ml/min/1.73 sqM) Est GFR (CKD-EPI)NonAf (>60 ml/min/1.73 sqM) Glucose (74-99) mg/dL Plasma Lactic Acid Fermin (0.7-2.0) mmol/L Calcium (8.4-10.2) mg/dL Phosphorus (2.5-4.5) mg/dL Magnesium (1.6-2.3) mg/dL Total Bilirubin (0.2-1.3) mg/dL AST (17-59) U/L ALT (21-72) U/L Alkaline Phosphatase (38-126) U/L Total Protein (6.3-8.2) g/dL Albumin (3.5-5.0) g/dL Urine Color Yellow Urine Appearance Clear (Clear) Urine pH 7.0 (5.0-8.0) Ur Specific [place] 1.010 (1.001-1.035) Urine Protein 2+ H (Negative) Urine Glucose (UA) Negative (Negative) Urine Ketones Negative (Negative) Urine Blood Moderate H (Negative) Urine Nitrite Positive (Negative) Urine Bilirubin Negative (Negative) Urine Urobilinogen <2.0 (<2.0) mg/dL Ur Leukocyte Esterase Large H (Negative) Urine RBC 120 H (0-5) /hpf Urine WBC 87 H (0-5) /hpf Urine WBC Clumps Rare H (None) /hpf Urine Bacteria Rare H (None) /hpf Hyaline Casts 4 H (0-2) /lpf Urine Mucus Rare H (None) /hpf Disposition <Boo Crockett - Last Filed: 04/27/19 23:39> <Marisel Wright - Last Filed: 04/28/19 02:40> Clinical Impression: Fever, Sepsis Disposition: ADMITTED IP TO THIS [facility] Condition: Serious Referrals: Yo Tejeda MD [Primary Care Provider] - 1-2 days
[2019-04-27] MEDS ORDERED: cefTRIAXone IN SWFI 1,000 MG/10 ML SYRINGE IVP ONE (23:45)
[2019-04-28] MEDS ORDERED: ACETAMINOPHEN ORAL SUSP 160 MG/5 ML CUP PO ONE (00:19)
[2019-04-28] MEDS ORDERED: ACETAMINOPHEN ORAL SUSP (PEDS) 3,840 MG/120 ML BOTTLE PO STA (00:24)
[2019-04-28 00:40] LABS: ALT 39 U/L (21-72); AST 19 U/L (17-59); African American GFR (CKD) >90 (>60 ml/min/1.73 sqM); Alkaline Phosphatase 67 U/L (38-126); Anion Gap 10 mmol/L; Blood Urea Nitrogen 12 mg/dL (9-20); Calcium 9.6 mg/dL (8.4-10.2); Carbon Dioxide 31 mmol/L (22-30); Chloride 93 mmol/L (98-107); Glucose 101 mg/dL (74-99); Magnesium 1.6 mg/dL (1.6-2.3); Non-African American GFR(CKD) >90 (>60 ml/min/1.73 sqM); Phosphorus 4.1 mg/dL (2.5-4.5); Potassium 4.3 mmol/L (3.5-5.1); Sodium 134 mmol/L (137-145); Total Bilirubin 1.1 mg/dL (0.2-1.3); Total Protein 7.6 g/dL (6.3-8.2)
[2019-04-28 00:42] LABS: Basophils # (A) 0.4 k/uL (0-0.2); Basophils % (A) 2 %; Eosinophils # (A) 0.1 k/uL (0-0.7); Eosinophils % (A) 1 %; HCT 34.5 % (39.0-53.0); HGB 12.5 gm/dL (13.0-17.5); Lymphocytes # (A) 1.4 k/uL (1.0-4.8); Lymphocytes % (A) 7 %; MCH 27.8 pg (25.0-35.0); MCHC 36.2 g/dL (31.0-37.0); MCV 76.9 fL (80.0-100.0); Mean Platelet Volume 6.7; Monocytes % (A) 5 %; Neutrophils # (A) 17.5 k/uL (1.3-7.7); Neutrophils % (A) 85 %; Platelet Count 268 k/uL (150-450); RBC 4.49 m/uL (4.30-5.90); RDW 14.2 % (11.5-15.5); WBC 20.6 k/uL (3.8-10.6)
[2019-04-28 01:21] LABS: Appearance,Urine Clear (Clear); Bacteria,Urine Rare /hpf; Bilirubin,Urine Negative (Negative); Blood,Urine Moderate (Negative); Color,Urine Yellow; Glucose,Urine (UA) Negative (Negative); Hyaline Casts,Urine 4 /lpf (0-2); Ketones,Urine Negative (Negative); Leukocyte Esterase,Urine Large (Negative); Mucus,Urine Rare /hpf; Nitrite,Urine Positive (Negative); Protein,Urine 2+ (Negative); RBC,Urine 120 /hpf (0-5); Urobilinogen,Urine <2.0 mg/dL (<2.0); WBC,Urine 87 /hpf (0-5)
[2019-04-28] MEDS ORDERED: NALOXONE 0.4 MG/ML 1 ML VIAL IV PRN (02:36)
[2019-04-28] MEDS ORDERED: IBUPROFEN ORAL SUSP 100 MG/5 ML CUP PO PRN (03:00)
[2019-04-28 05:50] VITALS: BMI 24.8
--- NOTE | 2019-04-28 10:43 | P.GSCN ---
History of Present Illness Consult date: 04/28/19 History of present illness: The patient is a 34-year-old gentleman with a previous history of abdominal surgery for Crohn's disease. He had a ureteral injury. was eventually asked to see the patient. He underwent a left retrograde pyelogram which showed a significant obstruction in the mid to distal ureter. A stent was unable to be placed. A left nephrostomy tube was placed . The patient is to be referred to a [facility] for a surgical repair. He has been in the hospital now couple of times with urinary tract infection with sepsis. There is a question whether there may be a fistula as he had loose stools until the nephrostomy tube was placed and then it subsided. He is feeling all right otherwise. There are no other symptoms other than the fever and chills. White count is 20,000. The urine is infected looking. 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 Past Anesthesia/Blood Transfusion Reactions: No Reported Reaction Additional Past Anesthesia/Blood Transfusion Reaction / Comm: pt stated has never had blood transfusions. Past Psychological History: No Psychological Hx Reported Additional Psychological History / Comment(s): Lives with a girlfriend or his mother. 2 children. Works for a local [employer]. No experience. No international travel. Did not relate to pets in the home Smoking Status: Never smoker Past Alcohol Use History: None Reported Past Drug Use History: Marijuana Additional Drug Use History / Comment(s): uses every few days for chron's - Past Family History Mother Family Medical History: No Reported History Father Family Medical History: Musculoskeletal Disorder Medications and Allergies Home Medications Medication Instructions Recorded Confirmed Type Cholecalciferol [Vitamin D3 (25 5,000 unit PO Q48H 04/27/19 04/27/19 History Mcg = 1000 Iu)] Vitamin A 8,000 unit PO Q48H 04/27/19 04/27/19 History Allergies Allergy/AdvReac Type Severity Reaction Status Date / Time No Known Allergies Allergy Verified 04/27/19 23:13 Surgical - Exam Vital Signs Temp Pulse Resp BP Pulse Ox 102.5 F H 100 18 119/71 98 04/27/19 23:06 04/27/19 23:06 04/27/19 23:06 04/27/19 23:06 04/27/19 23:06 - General well developed, well nourished, moderate distress - Eyes PERRL - ENT no hearing loss - Neck trachea midline - Respiratory normal expansion, normal respiratory effort - Cardiovascular Rhythm: regular - Abdomen Left nephrostomy tube was slightly cloudy urine Abdomen: soft, non tender - Genitourinary normal penis with no external lesions, testicles present - Integumentary no rash, no growths - Neurologic normal coordination, normal sensation - Musculoskeletal normal posture - Psychiatric oriented to time, oriented to person, oriented to place, speech is normal, memory intact Results - Labs 04/28/19 00:15 04/28/19 00:15 Abnormal Lab Results - Last 24 Hours (Table) 04/28/19 04/28/19 04/28/19 Range/Units 00:15 00:15 00:42 WBC 20.6 H (3.8-10.6) k/uL Hgb 12.5 L (13.0-17.5) gm/dL Hct 34.5 L (39.0-53.0) % MCV 76.9 L (80.0-100.0) fL Neutrophils # 17.5 H (1.3-7.7) k/uL Basophils # 0.4 H (0-0.2) k/uL Sodium 134 L (137-145) mmol/L Chloride 93 L (98-107) mmol/L Carbon Dioxide 31 H (22-30) mmol/L Glucose 101 H (74-99) mg/dL Urine Protein 2+ H (Negative) Urine Blood Moderate H (Negative) Ur Leukocyte Esterase Large H (Negative) Urine RBC 120 H (0-5) /hpf Urine WBC 87 H (0-5) /hpf Urine WBC Clumps Rare H (None) /hpf Urine Bacteria Rare H (None) /hpf Hyaline Casts 4 H (0-2) /lpf Urine Mucus Rare H (None) /hpf Diabetes panel 04/28/19 Range/Units 00:15 Sodium 134 L (137-145) mmol/L Potassium 4.3 (3.5-5.1) mmol/L Chloride 93 L (98-107) mmol/L Carbon Dioxide 31 H (22-30) mmol/L BUN 12 (9-20) mg/dL Creatinine 1.03 (0.66-1.25) mg/dL Glucose 101 H (74-99) mg/dL Calcium 9.6 (8.4-10.2) mg/dL AST 19 (17-59) U/L ALT 39 (21-72) U/L Alkaline Phosphatase 67 (38-126) U/L Total Protein 7.6 (6.3-8.2) g/dL Albumin 4.0 (3.5-5.0) g/dL Calcium panel 04/28/19 Range/Units 00:15 Calcium 9.6 (8.4-10.2) mg/dL Phosphorus 4.1 (2.5-4.5) mg/dL Albumin 4.0 (3.5-5.0) g/dL Pituitary panel 04/28/19 Range/Units 00:15 Sodium 134 L (137-145) mmol/L Potassium 4.3 (3.5-5.1) mmol/L Chloride 93 L (98-107) mmol/L Carbon Dioxide 31 H (22-30) mmol/L BUN 12 (9-20) mg/dL Creatinine 1.03 (0.66-1.25) mg/dL Glucose 101 H (74-99) mg/dL Calcium 9.6 (8.4-10.2) mg/dL Adrenal panel 04/28/19 Range/Units 00:15 Sodium 134 L (137-145) mmol/L Potassium 4.3 (3.5-5.1) mmol/L Chloride 93 L (98-107) mmol/L Carbon Dioxide 31 H (22-30) mmol/L BUN 12 (9-20) mg/dL Creatinine 1.03 (0.66-1.25) mg/dL Glucose 101 H (74-99) mg/dL Calcium 9.6 (8.4-10.2) mg/dL Total Bilirubin 1.1 (0.2-1.3) mg/dL AST 19 (17-59) U/L ALT 39 (21-72) U/L Alkaline Phosphatase 67 (38-126) U/L Total Protein 7.6 (6.3-8.2) g/dL Albumin 4.0 (3.5-5.0) g/dL Assessment and Plan Assessment: Impression: Urinary tract infection with sepsis. Crohn's disease. Recent injury to the ureter. Nephrostomy tube placed. Recommendations: The patient will be treated with antibiotics. I'll notify Derek brown of this patient's admission.
[2019-04-28] MEDS: ACETAMINOPHEN CHEW TAB 80 MG CHEW PO PRN ×2 (11:52→17:02)
[2019-04-28] MEDS ORDERED: IBUPROFEN ORAL SUSP 2,400 MG/120 ML BOTTLE PO PRN (12:41)
--- NOTE | 2019-04-28 13:27 | P.HPIM ---
History of Present Illness Patient is a pleasant 34-year-old female male was recently treated for urinary tract infection patient has a urostomy, patient started having fever yesterday.. Patient does have history of Crohn's disease and previous colostomy which was subsequently reversed. Patient is also complaining of diarrhea starting yesterday had only couple episodes. If he continues to have diarrhea we'll obtain Clostridium difficile testing be can use to have diarrhea. Patient urine did look abnormal recurrent UTI is a consideration considering that he has a nephrostomy tube in the left side. Patient denied any abdominal pain denied any cough. Neurology evaluated the patient. Infectious disease will be canceled it. Patient doesn't have any Crohn's exacerbation at this time. Review of Systems REVIEW OF SYSTEMS: CONSTITUTIONAL: As mentioned in HPI HEENT: No recent visual problems or hearing problems. Denied any sore throat. CARDIOVASCULAR: No chest pain, orthopnea, PND, no palpitations, no syncope. PULMONARY: No shortness of breath, no cough, no hemoptysis. GASTROINTESTINAL: No diarrhea, no nausea, no vomiting, no abdominal pain. NEUROLOGICAL: No headaches, no weakness, no numbness. HEMATOLOGICAL: Denies any bleeding or petechiae. GENITOURINARY: Denies any burning micturition, frequency, or urgency. MUSCULOSKELETAL/RHEUMATOLOGICAL: Denies any joint pain, swelling, or any muscle pain. ENDOCRINE: Denies any polyuria or polydipsia. The rest of the 14-point review of systems is negative. 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 Past Anesthesia/Blood Transfusion Reactions: No Reported Reaction Additional Past Anesthesia/Blood Transfusion Reaction / Comment(s): pt stated has never had blood transfusions. Past Psychological History: No Psychological Hx Reported Additional Psychological History / Comment(s): Lives with a girlfriend or his mother. 2 children. Works for a local company. No experience. No international travel. Did not relate to pets in the home Smoking Status: Never smoker Past Alcohol Use History: None Reported Past Drug Use History: Marijuana Additional Drug Use History / Comment(s): uses every few days for chron's - Past Family History Mother Family Medical History: No Reported History Father Family Medical History: Musculoskeletal Disorder Medications and Allergies Home Medications Medication Instructions Recorded Confirmed Type Cholecalciferol [Vitamin D3 (25 5,000 unit PO Q48H 04/27/19 04/27/19 History Mcg = 1000 Iu)] Vitamin A 8,000 unit PO Q48H 04/27/19 04/27/19 History Allergies Allergy/AdvReac Type Severity Reaction Status Date / Time No Known Allergies Allergy Verified 04/27/19 23:13 Physical Exam Vitals: Vital Signs Temp Pulse Pulse Resp BP BP Pulse Ox 04/28/19 11:28 101.3 F H 04/28/19 05:42 96.5 F L 75 14 131/76 98 04/28/19 05:19 87 18 122/88 99 04/28/19 02:05 98.8 F 72 18 115/75 97 04/27/19 23:06 102.5 F H 100 18 119/71 98 Intake and Output 04/27/19 04/28/19 04/28/19 22:59 06:59 14:59 Intake Total 1000 Balance 1000 Intake: Amount of Fluid Infused ( 1000 ml) Other: # Voids 1 Weight 71.985 kg PHYSICAL EXAMINATION: GENERAL: The patient is alert and oriented x3, not in any acute distress. Well developed, well nourished. HEENT: Pupils are round and equally reacting to light. EOMI. No scleral icterus. No conjunctival pallor. Normocephalic, atraumatic. No pharyngeal erythema. No thyromegaly. CARDIOVASCULAR: S1 and S2 present. No murmurs, rubs, or gallops. PULMONARY: Chest is clear to auscultation, no wheezing or crackles. ABDOMEN: Soft, nontender, nondistended, normoactive bowel sounds. No palpable organomegaly. Patient has a nephrostomy tube in place side MUSCULOSKELETAL: No joint swelling or deformity. EXTREMITIES: No cyanosis, clubbing, or pedal edema. NEUROLOGICAL: Gross neurological examination did not reveal any focal deficits. SKIN: No rashes. Results CBC & Chem 7: 04/28/19 00:15 04/28/19 00:15 Labs: Abnormal Lab Results - Last 24 Hours (Table) 04/28/19 04/28/19 04/28/19 Range/Units 00:15 00:15 00:42 WBC 20.6 H (3.8-10.6) k/uL Hgb 12.5 L (13.0-17.5) gm/dL Hct 34.5 L (39.0-53.0) % MCV 76.9 L (80.0-100.0) fL Neutrophils # 17.5 H (1.3-7.7) k/uL Basophils # 0.4 H (0-0.2) k/uL Sodium 134 L (137-145) mmol/L Chloride 93 L (98-107) mmol/L Carbon Dioxide 31 H (22-30) mmol/L Glucose 101 H (74-99) mg/dL Urine Protein 2+ H (Negative) Urine Blood Moderate H (Negative) Ur Leukocyte Esterase Large H (Negative) Urine RBC 120 H (0-5) /hpf Urine WBC 87 H (0-5) /hpf Urine WBC Clumps Rare H (None) /hpf Urine Bacteria Rare H (None) /hpf Hyaline Casts 4 H (0-2) /lpf Urine Mucus Rare H (None) /hpf Microbiology - Last 24 Hours (Table) 04/28/19 00:42 Urine Culture - Preliminary Urine,Clean Catch Thrombosis Risk Factor Assmnt - Choose All That Apply Any of the Below Risk Factors Present?: No Assessment and Plan Plan: -Sepsis: Possibly secondary to urinary tract infection again urine cultures blood cultures were obtained patient was started on Rocephin 2 g daily patient was on Keflex in the past and patient had E. coli in the past which is sensitive to third-generation cephalosporins. -Diarrhea will obtain C. diff testing -Hyponatremia hypovolemic hyponatremia patient is on IV fluids will repeat labs tomorrow -History of Crohn's not in acute exacerbation at this time
[2019-04-28] MEDS: SODIUM CHLORIDE 0.9% 1,000 ML IV SCH ×3 (13:57→23:59)
--- NOTE | 2019-04-28 22:18 | P.CONS ---
History of Present Illness - Reason for Consult Consult date: 04/28/19 - Chief Complaint Fever and chills - History of Present Illness 34 year old male with History of early this year presented hospital with severe abdominal pain. In the [place] utter[place] extensive colitis was evidence of COLITIS and underwent a diverting colostomy. Through the summer he was having some symptoms of GERD and underwent EGD without evidence of Helicobacter pylori infection but had gastritis which was treated and improved. His colitis improved. Consequently on February 26 he was brought to the hospital for the reversal of his colostomy. He has noted some bowel resection occurred due to some ongoing inflammation distally. The patient initially did well with surgery but apparently was inflammation regarding the left ureter and it became completely obstructed. He was seen by urology but due to the extensive inflammation stenting could not be performed and eventually nephrostomy tube was placed. He generally was doing somewhat better he's been able to maintain his weight and has not had significant amounts of abdominal pain. However the patient developed high-grade fever chill malaise nausea because presents emergency center is not evidence of high-grade fever and concerns to sepsis and was admitted. Because of this infectious diseases consultation was requested. The patient has had 102.3 fever this afternoon is now improved to 98.9. Review of Systems HEENT:Denies headache or acute visual change. Denies sinus or mouth discomfort s. Denies neck stiffness or pain. Denies significant oral cavity pain. Denies difficulty on swallowing. Lungs: Denies significant shortness of breath, cough, sputum production, or hemoptysis. Cardiovascular: Denies significant shortness of breath, chest pain, chest wall pain, orthopnea, dyspnea on exertion, syncope Gastrointestinal:Currently without significant nausea or emesis but had poor appetite at home, abdominal pain is improved but still has some left flank pain, no diarrhea no melena or hematochezia or hematemesis Musculoskeletal: denies significant myalgias or arthralgias. No new joint swelling. Denies new back pain. Skin: Denies new rash or lesions. No new ulcers or wounds are related.. Neuro: Denies headache or visual change. Denies any new onset weakness or difficulty with ambulation. Denies falls or seizures. Psychiatric:Denies anxiety or depression. 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 Past Anesthesia/Blood Transfusion Reactions: No Reported Reaction Additional Past Anesthesia/Blood Transfusion Reaction / Comm: pt stated has never had blood transfusions. Past Psychological History: No Psychological Hx Reported Additional Psychological History / Comment(s): Lives with his mother. Has 2 children. Works for a [employer]. No experience. No international travel. Pet dog 4 months is well Smoking Status: Never smoker Past Alcohol Use History: None Reported Past Drug Use History: Marijuana Additional Drug Use History / Comment(s): uses every few days for chron's - Past Family History Mother Family Medical History: No Reported History Father Family Medical History: Musculoskeletal Disorder Medications and Allergies Home Medications and Allergies Comment(s): Current Medications Acetaminophen (Tylenol Chew Tab) 640 mg PO Q6H PRN PRN Reason: Fever Last Admin: 04/28/19 17:02 Dose: 640 mg Documented by: Sodium Chloride (Saline 0.9%) 1,000 mls @ 75 mls/hr IV .[id number] KAROLINA Last Admin: 04/28/19 19:49 Dose: Not Given Documented by: Piperacillin Sod/Tazobactam (Sod 3.375 gm/ Sodium Chloride) 100 mls @ 25 mls/hr IVPB Q8HR KAROLINA Ibuprofen (Motrin Oral Susp) 600 mg PO Q6H PRN PRN Reason: Fever Last Admin: 04/28/19 15:44 Dose: 600 mg Documented by: Naloxone HCl (Narcan) 0.2 mg IV Q2M PRN PRN Reason: Opioid Reversal Home Medications Medication Instructions Recorded Confirmed Type Cholecalciferol [Vitamin D3 (25 5,000 unit PO Q48H 04/27/19 04/27/19 History Mcg = 1000 Iu)] Vitamin A 8,000 unit PO Q48H 04/27/19 04/27/19 History Allergies Allergy/AdvReac Type Severity Reaction Status Date / Time No Known Allergies Allergy Verified 04/27/19 23:13 Physical Exam Vitals: Vital Signs Temp Pulse Pulse Resp BP BP Pulse Ox 04/28/19 21:00 97.7 F 66 16 106/60 99 04/28/19 18:47 98.9 F 04/28/19 13:46 100.2 F H 78 17 116/74 99 04/28/19 11:28 101.3 F H 04/28/19 05:42 96.5 F L 75 14 131/76 98 04/28/19 05:19 87 18 122/88 99 04/28/19 02:05 98.8 F 72 18 115/75 97 04/27/19 23:06 102.5 F H 100 18 119/71 98 Intake and Output 04/28/19 04/28/19 04/28/19 06:59 14:59 22:59 Intake Total 1000 Balance 1000 Intake: Amount of Fluid Infused ( 1000 ml) Other: # Voids 1 1 Weight 71.985 kg Pleasant 34-year-old male of a thin but somewhat muscular build who is received pain medication and is not in severe distress HEENT: Anicteric conjunctiva are pink and moist nasal mucosa grossly intact without significant lesions, there is no thrush. Neck: The neck is supple without significant lymphadenopathy or thyromegaly. Lungs: Good bilateral air entry without significant crackles or wheezing. There is no significant bronchial sounds. There is no egophony or dullness. Heart: Regular rate and rhythm with an audible S1-S2, no S3 no S4. There is no significant murmur click or rub, PMI was nondisplaced. Abdomen: Abdomen is mildly distended, the ostomy site Has been reversed in the scars are well-healed. No keloid formation. Abdomen is only minimally tender. The percutaneous nephrostomy tube in the left flank is with minimal tenderness no drainage around the site cloudy yellow urine is in the bag. Extremities: The upper extremities have excellent pulses they are symmetric, no significant petechiae or telangiectasia. No splinter hemorrhages were noted. The lower extremities are free from significant edema. The peripheral pulses were 2+ and symmetric. Neuro: Awake alert oriented to person place and time. There are no acute new gross focal sensory motor deficits. Results CBC & Chem 7: 04/28/19 00:15 04/28/19 00:15 Labs: Abnormal Lab Results - Last 24 Hours (Table) 04/28/19 04/28/19 04/28/19 Range/Units 00:15 00:15 00:42 WBC 20.6 H (3.8-10.6) k/uL Hgb 12.5 L (13.0-17.5) gm/dL Hct 34.5 L (39.0-53.0) % MCV 76.9 L (80.0-100.0) fL Neutrophils # 17.5 H (1.3-7.7) k/uL Basophils # 0.4 H (0-0.2) k/uL Sodium 134 L (137-145) mmol/L Chloride 93 L (98-107) mmol/L Carbon Dioxide 31 H (22-30) mmol/L Glucose 101 H (74-99) mg/dL Urine Protein 2+ H (Negative) Urine Blood Moderate H (Negative) Ur Leukocyte Esterase Large H (Negative) Urine RBC 120 H (0-5) /hpf Urine WBC 87 H (0-5) /hpf Urine WBC Clumps Rare H (None) /hpf Urine Bacteria Rare H (None) /hpf Hyaline Casts 4 H (0-2) /lpf Urine Mucus Rare H (None) /hpf Microbiology - Last 24 Hours (Table) 04/28/19 00:42 Urine Culture - Preliminary Urine,Clean Catch Laboratory Results WBC 20.6 k/uL (3.8-10.6) H 04/28/19 00:15 RBC 4.49 m/uL (4.30-5.90) 04/28/19 00:15 Hgb 12.5 gm/dL (13.0-17.5) L 04/28/19 00:15 Hct 34.5 % (39.0-53.0) L 04/28/19 00:15 MCV 76.9 fL (80.0-100.0) L 04/28/19 00:15 MCH 27.8 pg (25.0-35.0) 04/28/19 00:15 MCHC 36.2 g/dL (31.0-37.0) 04/28/19 00:15 RDW 14.2 % (11.5-15.5) 04/28/19 00:15 Plt Count 268 k/uL (150-450) 04/28/19 00:15 Neutrophils % 85 % 04/28/19 00:15 Lymphocytes % 7 % 04/28/19 00:15 Monocytes % 5 % 04/28/19 00:15 Eosinophils % 1 % 04/28/19 00:15 Basophils % 2 % 04/28/19 00:15 Neutrophils # 17.5 k/uL (1.3-7.7) H 04/28/19 00:15 Lymphocytes # 1.4 k/uL (1.0-4.8) 04/28/19 00:15 Monocytes # 1.0 k/uL (0-1.0) 04/28/19 00:15 Eosinophils # 0.1 k/uL (0-0.7) 04/28/19 00:15 Basophils # 0.4 k/uL (0-0.2) H 04/28/19 00:15 Sodium 134 mmol/L (137-145) L 04/28/19 00:15 Potassium 4.3 mmol/L (3.5-5.1) 04/28/19 00:15 Chloride 93 mmol/L (98-107) L 04/28/19 00:15 Carbon Dioxide 31 mmol/L (22-30) H 04/28/19 00:15 Anion Gap 10 mmol/L 04/28/19 00:15 BUN 12 mg/dL (9-20) 04/28/19 00:15 Creatinine 1.03 mg/dL (0.66-1.25) 04/28/19 00:15 Est GFR (CKD-EPI)AfAm >90 (>60 ml/min/1.73 sqM) 04/28/19 00:15 Est GFR (CKD-EPI)NonAf >90 (>60 ml/min/1.73 sqM) 04/28/19 00:15 Glucose 101 mg/dL (74-99) H 04/28/19 00:15 Plasma Lactic Acid Fermin 0.9 mmol/L (0.7-2.0) 04/28/19 00:15 Calcium 9.6 mg/dL (8.4-10.2) 04/28/19 00:15 Phosphorus 4.1 mg/dL (2.5-4.5) 04/28/19 00:15 Magnesium 1.6 mg/dL (1.6-2.3) 04/28/19 00:15 Total Bilirubin 1.1 mg/dL (0.2-1.3) 04/28/19 00:15 AST 19 U/L (17-59) 04/28/19 00:15 ALT 39 U/L (21-72) 04/28/19 00:15 Alkaline Phosphatase 67 U/L (38-126) 04/28/19 00:15 Total Protein 7.6 g/dL (6.3-8.2) 04/28/19 00:15 Albumin 4.0 g/dL (3.5-5.0) 04/28/19 00:15 Urine Color Yellow 04/28/19 00:42 Urine Appearance Clear (Clear) 04/28/19 00:42 Urine pH 7.0 (5.0-8.0) 04/28/19 00:42 Ur Specific [place] 1.010 (1.001-1.035) 04/28/19 00:42 Urine Protein 2+ (Negative) H 04/28/19 00:42 Urine Glucose (UA) Negative (Negative) 04/28/19 00:42 Urine Ketones Negative (Negative) 04/28/19 00:42 Urine Blood Moderate (Negative) H 04/28/19 00:42 Urine Nitrite Positive (Negative) 04/28/19 00:42 Urine Bilirubin Negative (Negative) 04/28/19 00:42 Urine Urobilinogen <2.0 mg/dL (<2.0) 04/28/19 00:42 Ur Leukocyte Esterase Large (Negative) H 04/28/19 00:42 Urine RBC 120 /hpf (0-5) H 04/28/19 00:42 Urine WBC 87 /hpf (0-5) H 04/28/19 00:42 Urine WBC Clumps Rare /hpf (None) H 04/28/19 00:42 Urine Bacteria Rare /hpf (None) H 04/28/19 00:42 Hyaline Casts 4 /lpf (0-2) H 04/28/19 00:42 Urine Mucus Rare /hpf (None) H 04/28/19 00:42 Microbiology 04/28/19 00:42 Urine,Clean Catch Urine Culture - Preliminary Assessment and Plan (1) Fever Current Visit: Yes Status: Acute Code(s): R50.9 - FEVER, UNSPECIFIED SNOMED Code(s): 540408277 (2) History of Crohn's disease Current Visit: No Status: Acute Code(s): Z87.19 - PERSONAL HISTORY OF OTHER DISEASES OF THE DIGESTIVE SYSTEM SNOMED Code(s): 692560889577598 (3) History of colostomy reversal Current Visit: No Status: Acute Code(s): Z98.890 - OTHER SPECIFIED POSTPROCEDURAL STATES SNOMED Code(s): 027402431 (4) Hydronephrosis Narrative/Plan: 34-year-old male presents to hospital with fever chills malaise and evidence of cloudy urine through his urostomy. He has noted he has a very complex history starting earlier this year with the diagnosis of his underlying inflammatory bowel disease, Crohn's disease with the requirement of the diverting colostomy urine eventually improved but was having some GERD symptoms, endoscopy only revealed evidence of gastritis. Because he was taken back to the operating room on 02/26/2019 for the reversal of his colostomy. Originally he did well but then had the rapid difficulties with inflammation to his left ureter which eventually was found to be completely obstructed. Attempts for dilatation and stents were unsuccessful eventually a percutaneous nephrostomy was placed. He was doing relatively well until the onset of a high-grade fevers chills. At this time concern to infection of the urinary system as well as concerns to infection related intra-abdominally. There appears to be no vegetative matter in the urine at this time but is quite cloudy. For antibiotic therapy given the concerns intra-abdominally as well as to the urine Zosyn is utilized at this time is that of Rocephin to ensure anaerobes as well as more resistant gram negatives are covered pain control seems to be adequate at this time he has significant fever is received several medications and his temperatures family starting to improve a bit. The importance of hydration. Urology has evaluated we await their further evaluation. Current Visit: No Status: Acute Code(s): N13.30 - UNSPECIFIED HYDRONEPHROSIS SNOMED Code(s): 62364093
[2019-04-28] MEDS: PIPERACILLIN-TAZOBACTAM 3.375 GM in SODIUM CHLORIDE 0.9% 100 ML IVPB SCH (23:59)
[2019-04-29] MEDS: PIPERACILLIN-TAZOBACTAM 3.375 GM in SODIUM CHLORIDE 0.9% 100 ML IVPB SCH ×2 (08:40→15:13)
--- NOTE | 2019-04-29 15:06 | P.PN ---
Subjective Progress Note Date: 04/29/19 Principal diagnosis: Patient is a pleasant 34-year-old female male was recently treated for urinary tract infection patient has a urostomy, patient started having fever yesterday.. Patient does have history of Crohn's disease and previous colostomy which was subsequently reversed. Patient is also complaining of diarrhea starting yesterday had only couple episodes. If he continues to have diarrhea we'll obtain Clostridium difficile testing . Patient urine did look abnormal recurrent UTI is a consideration considering that he has a nephrostomy tube in the left side. Patient denied any abdominal pain denied any cough. Urology evaluated the patient. Infectious disease will be consulted. Patient doesn't have any Crohn's exacerbation at this time. 04/29/2019 Patient is lying in bed in no acute distress. Family is at the bedside. Patient does have a history of being recently treated for UTI and has a nephrostomy tube of left side. Patient states that the urine drainage looks cloudy at this time as it did not yesterday. Urine culture thus far shows gram-negative bacilli. Will continue to wait for culture finalization. Infectious disease is following. Patient denies any chest pain, shortness of breath, or palpitations at this time. Patient has been afebrile since last night. Patient denies any nausea or vomiting at this time. Patient is tolerating diet but states he hasn't been eating much. Urology is following. No acute overnight issues. Will continue to monitor closely. Objective - Vital Signs Vital signs: Vital Signs Temp 98.1 F 04/29/19 13:00 Pulse 85 04/29/19 13:00 Resp 18 04/29/19 13:00 BP 115/66 04/29/19 13:00 Pulse Ox 98 04/29/19 13:00 Intake & Output 04/28/19 04/29/19 04/29/19 18:59 06:59 18:59 Intake Total 600 700 Output Total 300 Balance 300 700 Intake: Intake, IV Titration 600 700 Amount Piperacillin-Tazobactam 3 100 .375 gm In Sodium Chloride 0.9% 100 ml @ 25 mls/hr IVPB Q8HR K[facility] Rx# :[id number] Sodium Chloride 0.9% 1, 600 600 000 ml @ 75 mls/hr IV . [id number] KAROLINA Rx#:[id number] Output: Urine 300 Other: # Voids 1 1 - Exam GENERAL: The patient is alert and oriented x3, not in any acute distress. Well developed, well nourished. HEENT: Pupils are round and equally reacting to light. EOMI. No scleral icterus. No conjunctival pallor. Normocephalic, atraumatic. No pharyngeal erythema. No thyromegaly. CARDIOVASCULAR: S1 and S2 present. No murmurs, rubs, or gallops. PULMONARY: Chest is clear to auscultation, no wheezing or crackles. ABDOMEN: Soft, nontender, nondistended, normoactive bowel sounds. No palpable organomegaly. Patient has a nephrostomy tube in place of the left side. Dressing is dry and intact and tube is patent and draining MUSCULOSKELETAL: No joint swelling or deformity. EXTREMITIES: No cyanosis, clubbing, or pedal edema. NEUROLOGICAL: Gross neurological examination did not reveal any focal deficits. SKIN: No rashes. - Labs CBC & Chem 7: 04/28/19 00:15 04/28/19 00:15 Labs: Microbiology - Last 24 Hours (Table) 04/28/19 00:42 Urine Culture - Preliminary Urine,Clean Catch Gram Neg Bacilli 04/28/19 00:15 Blood Culture - Preliminary Blood No Growth after 24 hours Assessment and Plan Assessment: -Sepsis: Possibly secondary to urinary tract infection again urine cultures blood cultures were obtained patient was started on Rocephin 2 g daily. patient was on Keflex in the past and patient had E. coli in the past which is sensitive to third-generation cephalosporins. Urine culture thus far shows gram-negative bacilli. Awaiting finalization of cultures. Infectious disease is following -Diarrhea will obtain C. diff testing. Patient has not had any diarrhea or bowel movement today. Awaiting sample -Hyponatremia hypovolemic hyponatremia patient is on IV fluids will repeat labs tomorrow -History of Crohn's not in acute exacerbation at this time
[2019-04-29] MEDS: SODIUM CHLORIDE 0.9% 1,000 ML IV SCH (15:14)
[2019-04-29 15:22] VITALS: RESP 16
[2019-04-30] MEDS: PIPERACILLIN-TAZOBACTAM 3.375 GM in SODIUM CHLORIDE 0.9% 100 ML IVPB SCH ×3 (00:04→15:30)
[2019-04-30 08:40] LABS: Basophils # (A) 0.1 k/uL (0-0.2); Basophils % (A) 1 %; Eosinophils # (A) 0.3 k/uL (0-0.7); Eosinophils % (A) 5 %; HCT 36.3 % (39.0-53.0); HGB 12.1 gm/dL (13.0-17.5); Lymphocytes # (A) 1.2 k/uL (1.0-4.8); Lymphocytes % (A) 20 %; MCH 26.9 pg (25.0-35.0); MCHC 33.2 g/dL (31.0-37.0); Mean Platelet Volume 6.8; Monocytes # (A) 0.6 k/uL (0-1.0); Monocytes % (A) 11 %; Neutrophils # (A) 3.5 k/uL (1.3-7.7); Neutrophils % (A) 60 %; Platelet Count 245 k/uL (150-450); RBC 4.48 m/uL (4.30-5.90); RDW 13.9 % (11.5-15.5); WBC 5.8 k/uL (3.8-10.6)
[2019-04-30] MEDS: SODIUM CHLORIDE 0.9% 1,000 ML IV SCH (08:46)
[2019-04-30 08:52] LABS: African American GFR (CKD) >90 (>60 ml/min/1.73 sqM); Anion Gap 9 mmol/L; Blood Urea Nitrogen 7 mg/dL (9-20); Calcium 9.2 mg/dL (8.4-10.2); Carbon Dioxide 30 mmol/L (22-30); Chloride 100 mmol/L (98-107); Glucose 89 mg/dL (74-99); Non-African American GFR(CKD) >90 (>60 ml/min/1.73 sqM); Potassium 3.8 mmol/L (3.5-5.1); Sodium 139 mmol/L (137-145)
[2019-04-30 12:08] VITALS: BP 122/78; PULSE 73; TEMP 98.4
--- NOTE | 2019-04-30 16:40 | P.DS ---
Providers Date of admission: 04/28/19 02:36 Expected date of discharge: 04/30/19 Attending physician: Gavin Humphries Consults: 04/28/19 02:37 Consult Physician Urgent Consulting Provider: Juan Diego Stcak Consult Reason/Comments: UTI, sepsis, nephrostomy tube in place Do you want consulting provider notified?: Yes, Notify in am 04/28/19 11:34 Consult Physician Urgent Consulting Provider: Jay Costa Consult Reason/Comments: Failed OP UTI, Fever Do you want consulting provider notified?: Yes Primary care physician: Ileana [facility] Course: Final diagnosis Sepsis: Possibly secondary to urinary tract infection Urinary tract infection Diarrhea Hyponatremia, hypovolemic hyponatremia History of Crohn's, not in acute exacerbation at this time Discharge disposition Patient is being discharged in stable condition with guarded prognosis to home and will follow-up with primary care provider as well as urology upon discharge. Total time taken is 35 minutes. History of present illness This is a pleasant 34-year-old male who was recently admitted with a recent history of urinary tract infection and was found to have fevers and was being closely monitored. Patient does have a history of Crohn's disease but not in any acute exacerbation at this time. Prior to hospitalization patient had multiple episodes of diarrhea and a sample was obtained for C. diff which was negative. Patient's urine from his left side nephrostomy tube appeared concentrated and cloudy and was sent for cultures. Culture finalization with Pseudomonas aeruginosa and per infectious disease recommendations patient will continue with a short course of oral antibiotics in the form of Cipro for 10 days. Patient will follow-up with urology in the outpatient setting. Patient denies any chest pain or shortness of breath, or palpitations at this time. Patient has remained afebrile today. Patient denies any nausea or vomiting or diarrhea at this time and has been tolerating diet. Currently patient's condition is stable with much improvement and able for discharge today. Guarded prognosis. On exam vital signs are stable. Blood pressure is 122/78, pulse is 73, respirations are 16, oxygen saturation is 100% on room air, temp is 98.4F. Cardio S1 and S2 are heard. Respiratory system shows clear to auscultation. Abdomen is soft and nontender. Nervous system shows no focal deficits and gait is steady. Please refer to medication reconciliation sheet for a list of medications. Patient Condition at Discharge: Stable Plan - Discharge Summary Discharge Rx Participant: Yes New Discharge Prescriptions: New Ciprofloxacin HCl [Cipro] 500 mg PO Q12HR #20 tablet Continue Cholecalciferol [Vitamin D3 (25 Mcg = 1000 Iu)] 5,000 unit PO Q48H Vitamin A 8,000 unit PO Q48H Discharge Medication List Cholecalciferol [Vitamin D3 (25 Mcg = 1000 Iu)] 5,000 unit PO Q48H 04/27/19 [History] Vitamin A 8,000 unit PO Q48H 04/27/19 [History] Ciprofloxacin HCl [Cipro] 500 mg PO Q12HR #20 tablet 04/30/19 [Rx] Follow up Appointment(s)/Referral(s): Yo Tejeda MD [Primary Care Provider] - 1-2 days Juan Diego Stack MD [STAFF PHYSICIAN] - 1 Week Activity/Diet/Wound Care/Special Instructions: Activity Limited until follow-up Continue complete course of antibiotics Follow-up with primary care provider upon discharge Follow-up with urology Continue current diet Discharge Disposition: HOME SELF-CARE
--- NOTE | 2019-04-30 23:39 | P.PN ---
Subjective Progress Note Date: 04/30/19 4 year old male with History of early this year presented hospital with severe abdominal pain. In the [place] utterances extensive colitis was evidence of COLITIS and underwent a diverting colostomy. Through the summer he was having some symptoms of GERD and underwent EGD without evidence of Helicobacter pylori infection but had gastritis which was treated and improved. His colitis improved. Consequently on February 26 he was brought to the hospital for the reversal of his colostomy. He has noted some bowel resection occurred due to some ongoing inflammation distally. The patient initially did well with surgery but apparently was inflammation regarding the left ureter and it became completely obstructed. He was seen by urology but due to the extensive inflammation stenting could not be performed and eventually nephrostomy tube was placed. He generally was doing somewhat better he's been able to maintain his weight and has not had significant amounts of abdominal pain. However the leonidas ent developed high-grade fever chill malaise nausea because presents emergency center is not evidence of high-grade fever and concerns to sepsis and was admitted. Because of this infectious diseases consultation was requested. The patient has had 102.3 fever this afternoon is now improved to 98.9. 04/30/2019Patient is now doing considerably better. Fever has resolved. Urine culture is positive. Blood cultures are negative. No new abdominal pain. Eating and drinking well. Objective - Vital Signs Vital signs: Vital Signs Temp 98.4 F 04/30/19 11:49 Pulse 73 04/30/19 11:49 Resp 16 04/30/19 11:49 BP 122/78 04/30/19 11:49 Pulse Ox 100 04/30/19 11:49 Intake & Output 04/30/19 04/30/19 05/01/19 06:59 18:59 06:59 Intake Total 2560 100 Output Total 300 900 Balance 2260 -800 Intake: Intake, IV Titration 650 100 Amount Piperacillin-Tazobactam 3 200 100 .375 gm In Sodium Chloride 0.9% 100 ml @ 25 mls/hr IVPB Q8HR [facility] Rx# :[id number] Sodium Chloride 0.9% 1, 450 000 ml @ 75 mls/hr IV . [id number] [facility] Rx#:[id number] Oral 1910 Output: Drainage 900 Left Back 900 Urine 300 Other: Voiding Method Toilet # Voids 1 3 # Bowel Movements 1 - Exam Pleasant 34-year-old male of a thin but somewhat muscular build who is received pain medication and is not in severe distress HEENT: Anicteric conjunctiva are pink and moist nasal mucosa grossly intact without significant lesions, there is no thrush. Neck: The neck is supple without significant lymphadenopathy or thyromegaly. Lungs: Good bilateral air entry without significant crackles or wheezing. There is no significant bronchial sounds. There is no egophony or dullness. Heart: Regular rate and rhythm with an audible S1-S2, no S3 no S4. There is no significant murmur click or rub, PMI was nondisplaced. Abdomen: Abdomen is mildly distended, the ostomy site Has been reversed in the scars are well-healed. No keloid formation. Abdomen is only minimally tender. The percutaneous nephrostomy tube in the left flank is with minimal tenderness no drainage around the site cloudy yellow urine is in the bag. Extremities: The upper extremities have excellent pulses they are symmetric, no significant petechiae or telangiectasia. No splinter hemorrhages were noted. The lower extremities are free from significant edema. The peripheral pulses were 2+ and symmetric. Neuro: Awake alert oriented to person place and time. There are no acute new gross focal sensory motor deficits. - Labs CBC & Chem 7: 04/30/19 07:52 04/30/19 07:52 Labs: Abnormal Lab Results - Last 24 Hours (Table) 04/30/19 04/30/19 Range/Units 07:52 07:52 Hgb 12.1 L (13.0-17.5) gm/dL Hct 36.3 L (39.0-53.0) % BUN 7 L (9-20) mg/dL Microbiology - Last 24 Hours (Table) 04/28/19 00:42 Urine Culture - Final Urine,Clean Catch Pseudomonas aeruginosa 04/28/19 00:15 Blood Culture - Preliminary Blood No Growth after 48 hours Laboratory Results WBC 5.8 k/uL (3.8-10.6) 04/30/19 07:52 RBC 4.48 m/uL (4.30-5.90) 04/30/19 07:52 Hgb 12.1 gm/dL (13.0-17.5) L 04/30/19 07:52 Hct 36.3 % (39.0-53.0) L 04/30/19 07:52 MCV 81.0 fL (80.0-100.0) 04/30/19 07:52 MCH 26.9 pg (25.0-35.0) 04/30/19 07:52 MCHC 33.2 g/dL (31.0-37.0) 04/30/19 07:52 RDW 13.9 % (11.5-15.5) 04/30/19 07:52 Plt Count 245 k/uL (150-450) 04/30/19 07:52 Neutrophils % 60 % 04/30/19 07:52 Lymphocytes % 20 % 04/30/19 07:52 Monocytes % 11 % 04/30/19 07:52 Eosinophils % 5 % 04/30/19 07:52 Basophils % 1 % 04/30/19 07:52 Neutrophils # 3.5 k/uL (1.3-7.7) 04/30/19 07:52 Lymphocytes # 1.2 k/uL (1.0-4.8) 04/30/19 07:52 Monocytes # 0.6 k/uL (0-1.0) 04/30/19 07:52 Eosinophils # 0.3 k/uL (0-0.7) 04/30/19 07:52 Basophils # 0.1 k/uL (0-0.2) 04/30/19 07:52 Sodium 139 mmol/L (137-145) 04/30/19 07:52 Potassium 3.8 mmol/L (3.5-5.1) 04/30/19 07:52 Chloride 100 mmol/L (98-107) 04/30/19 07:52 Carbon Dioxide 30 mmol/L (22-30) 04/30/19 07:52 Anion Gap 9 mmol/L 04/30/19 07:52 BUN 7 mg/dL (9-20) L 04/30/19 07:52 Creatinine 0.93 mg/dL (0.66-1.25) 04/30/19 07:52 Est GFR (CKD-EPI)AfAm >90 (>60 ml/min/1.73 sqM) 04/30/19 07:52 Est GFR (CKD-EPI)NonAf >90 (>60 ml/min/1.73 sqM) 04/30/19 07:52 Glucose 89 mg/dL (74-99) 04/30/19 07:52 Plasma Lactic Acid Fermin 0.9 mmol/L (0.7-2.0) 04/28/19 00:15 Calcium 9.2 mg/dL (8.4-10.2) 04/30/19 07:52 Phosphorus 4.1 mg/dL (2.5-4.5) 04/28/19 00:15 Magnesium 1.6 mg/dL (1.6-2.3) 04/28/19 00:15 Total Bilirubin 1.1 mg/dL (0.2-1.3) 04/28/19 00:15 AST 19 U/L (17-59) 04/28/19 00:15 ALT 39 U/L (21-72) 04/28/19 00:15 Alkaline Phosphatase 67 U/L (38-126) 04/28/19 00:15 Total Protein 7.6 g/dL (6.3-8.2) 04/28/19 00:15 Albumin 4.0 g/dL (3.5-5.0) 04/28/19 00:15 Urine Color Yellow 04/28/19 00:42 Urine Appearance Clear (Clear) 04/28/19 00:42 Urine pH 7.0 (5.0-8.0) 04/28/19 00:42 Ur Specific [place] 1.010 (1.001-1.035) 04/28/19 00:42 Urine Protein 2+ (Negative) H 04/28/19 00:42 Urine Glucose (UA) Negative (Negative) 04/28/19 00:42 Urine Ketones Negative (Negative) 04/28/19 00:42 Urine Blood Moderate (Negative) H 04/28/19 00:42 Urine Nitrite Positive (Negative) 04/28/19 00:42 Urine Bilirubin Negative (Negative) 04/28/19 00:42 Urine Urobilinogen <2.0 mg/dL (<2.0) 04/28/19 00:42 Ur Leukocyte Esterase Large (Negative) H 04/28/19 00:42 Urine RBC 120 /hpf (0-5) H 04/28/19 00:42 Urine WBC 87 /hpf (0-5) H 04/28/19 00:42 Urine WBC Clumps Rare /hpf (None) H 04/28/19 00:42 Urine Bacteria Rare /hpf (None) H 04/28/19 00:42 Hyaline Casts 4 /lpf (0-2) H 04/28/19 00:42 Urine Mucus Rare /hpf (None) H 04/28/19 00:42 C. difficile (EIA) Intrp Negative (Negative) 04/29/19 15:30 Microbiology 04/28/19 00:42 Urine,Clean Catch Urine Culture - Final Pseudomonas aeruginosa 04/28/19 00:15 Blood Blood Culture - Preliminary No Growth after 48 hours Assessment and Plan (1) Fever Status: Acute Code(s): R50.9 - FEVER, UNSPECIFIED SNOMED Code(s): 702962034 (2) History of Crohn's disease Status: Acute Code(s): Z87.19 - PERSONAL HISTORY OF OTHER DISEASES OF THE DIGESTIVE SYSTEM SNOMED Code(s): 091566023514029 (3) History of colostomy reversal Status: Acute Code(s): Z98.890 - OTHER SPECIFIED POSTPROCEDURAL STATES SNOMED Code(s): 674736962 (4) Hydronephrosis Narrative/Plan: 34-year-old male presents to hospital with fever chills malaise and evidence of cloudy urine through his urostomy. He has noted he has a very complex history starting earlier this year with the diagnosis of his underlying inflammatory bowel disease, Crohn's disease with the requirement of the diverting colostomy urine eventually improved but was having some GERD symptoms, endoscopy only revealed evidence of gastritis. Because he was taken back to the operating room on 02/26/2019 for the reversal of his colostomy. Originally he did well but then had the rapid difficulties with inflammation to his left ureter which eventually was found to be completely obstructed. Attempts for dilatation and stents were unsuccessful eventually a percutaneous nephrostomy was placed. He was doing relatively well until the onset of a high-grade fevers chills. At this time concern to infection of the urinary system as well as concerns to infection related intra-abdominally. There appears to be no vegetative matter in the urine at this time but is quite cloudy. For antibiotic therapy given the concerns intra-abdominally as well as to the urine Zosyn is utilized at this time is that of Rocephin to ensure anaerobes as well as more resistant gram negatives are covered pain control seems to be adequate at this time he has significant fever is received several medications and his temperatures family starting to improve a bit. The importance of hydration. Urology has evaluated we await their further evaluation. 04/30/2019 reveals the patient to be considerably better. He is eating and drinking well without difficulties. He is having no fever or chills. He is not having any new pain. The urine culture shows evidence of Pseudomonas that is fortunately susceptible to quinolone and consequently is discharged home on oral ciprofloxacin 500 mg every 12 hours. He will have follow-up with urologist and [place] hopefully in the next short period of time for further evaluation about the obstructive ureter. Care of the nephrostomy tube has already occurred and I believe he will have a home care nurse to help. Discharge home today. Prescription sent to his pharmacy. Status: Acute Code(s): N13.30 - UNSPECIFIED HYDRONEPHROSIS SNOMED Code(s): 78292647
--- NOTE | 2019-05-01 09:57 | P.PN ---
Progress Note - Text Progress Note Date: 04/30/19 The patient is feeling much better and has no complaints at this time. He is afebrile. Urine draining from the nephrostomy tube is clear. Urine culture shows Pseudomonas, sensitive to quinolones. Blood cultures are negative. I am in agreement with discharge home on Cipro. He will require open repair of his left ureteral stricture. The nephrostomy tube will remain in place until that time.
== END 2019-04-30 18:22 | disposition home or self-care (01) | DRG 872 ==
LOC: EC 22:54 → 3NMEDONC 04-28 02:36
PROVIDERS: ADMIT Hospitalist; ATTEND Hospitalist
DX: A41.52 Sepsis due to Pseudomonas (principal); N13.6 Pyonephrosis; E87.1 Hypo-osmolality and hyponatremia; K50.90 Crohn's disease, unspecified, without complications; E86.1 Hypovolemia; G40.909 Epilepsy, unspecified, not intractable, without status epilepticus; Z87.440 Personal history of urinary (tract) infections; Z93.6 Other artificial openings of urinary tract status; R19.7 Diarrhea, unspecified
CPT/HCPCS: 36415; 80048; 80053; 81001; 83605; 83735; 84100; 85025; 87040; 87077; 87086; 87186; 87324; 96361; 96374; 96375; 99284

== ENCOUNTER 2019-07-02 12:15 | Emergency (ER) | payer BC, OTHER ==
[2019-07-02] MEDS ORDERED: HYDROmorphone 0.5 MG/0.5 ML SYRINGE IVP STA (12:37)
[2019-07-02] MEDS ORDERED: SODIUM CHLORIDE 0.9% 1,000 ML IV STA (12:37)
[2019-07-02] MEDS ORDERED: ONDANSETRON 4 MG/2 ML VIAL IVP STA (12:37)
--- NOTE | 2019-07-02 12:40 | ED ---
General Adult HPI - General Chief complaint: Nausea/Vomiting/Diarrhea Stated complaint: Vomiting for two days Time Seen by Provider: 07/02/19 12:30 Source: patient, RN notes reviewed, old records reviewed Mode of arrival: ambulatory Limitations: no limitations - History of Present Illness Initial comments: 34-year-old male presents for evaluation of nausea vomiting diarrhea as well as generalized weakness. Patient reports 2 days of vomiting which is been with any attempts at oral hydration. He's also had several episodes of loose watery diarrhea. He's had subjective fever and chills and generalized weakness. He also complains of a headache. He has recent medical history including Crohn's disease status post resection and colostomy and reversal of this colostomy in February of this year. He had injury to the left kidney requiring a percutaneous nephrostomy tube on the left. He is following with urology at [place] at this time. He is planned for repair in the near future. No known sick contacts. He's been unable to eat or drink in the past 2 days. - Related Data Home Medications Medication Instructions Recorded Confirmed Cholecalciferol [Vitamin D3 (25 5,000 unit PO Q48H 04/27/19 07/02/19 Mcg = 1000 Iu)] Vitamin A 8,000 unit PO Q48H 04/27/19 07/02/19 Phenazopyridine [Pyridium] 100 mg PO TID 07/02/19 07/02/19 Allergies Allergy/AdvReac Type Severity Reaction Status Date / Time No Known Allergies Allergy Verified 07/02/19 13:08 Review of Systems ROS Statement: Those systems with pertinent positive or pertinent negative responses have been documented in the HPI. ROS Other: All systems not noted in ROS Statement are negative. 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 Past Anesthesia/Blood Transfusion Reactions: No Reported Reaction Additional Past Anesthesia/Blood Transfusion Reaction / Comment(s): pt stated has never had blood transfusions. Past Psychological History: No Psychological Hx Reported Smoking Status: Never smoker Past Alcohol Use History: None Reported Past Drug Use History: Marijuana - Past Family History Mother Family Medical History: No Reported History Additional Family Medical History / Comment(s): Mother is healthy. Father Family Medical History: Musculoskeletal Disorder Additional Family Medical History / Comment(s): DJD-hip. General Exam Limitations: no limitations General appearance: alert Head exam: Present: atraumatic, normocephalic Eye exam: Present: normal appearance, PERRL ENT exam: Present: mucous membranes dry Neck exam: Present: normal inspection. Absent: tenderness, meningismus Respiratory exam: Present: normal lung sounds bilaterally. Absent: respiratory distress, wheezes Cardiovascular Exam: Present: regular rate, normal rhythm GI/Abdominal exam: Present: soft. Absent: distended, tenderness, guarding, rebound Extremities exam: Present: normal inspection, normal capillary refill, pedal edema Back exam: Present: other (Left nephrostomy tube, no surrounding erythema, no purulent age) Neurological exam: Present: alert, oriented X3 Psychiatric exam: Present: normal affect, normal mood Skin exam: Present: warm, dry, intact. Absent: cyanosis, diaphoretic Course Vital Signs 07/02/19 07/02/19 12:26 15:12 Temperature 100.6 F H 103.1 F H Pulse Rate 91 85 Respiratory 19 18 Rate Blood Pressure 141/80 145/94 O2 Sat by Pulse 99 98 Oximetry Medical Decision Making - Medical Decision Making 34-year-old male with left-sided nephrostomy tube presenting with nausea vomiting diarrhea. Patient appears ill on initial exam, is tachycardic and febrile. He has elevated white blood cell count 19.4. He has mildly up trending creatinine at 1.29. He has urinalysis consistent with UTI. CT was performed which is negative for abscess, does show fat stranding consistent with pyelonephritis. He has scheduled repair of left stricture. [facility]. He had a recent pyelogram at [facility] by his urologist. Previous culture results are reviewed and patient is given a dose of cefepime in the emergency department he will be transferred to [facility] for continuation of care. I did discuss this with the urologist at this institution Dr. Blank and they are agreeable with this plan. Diagnosis: Pyelonephritis, sepsis Patient will be transferred to [facility] accepting physician Dr. Manzo. - Lab Data Result diagrams: 07/02/19 12:50 07/02/19 12:50 Lab Results 07/02/19 07/02/19 07/02/19 Range/Units 12:50 12:50 12:50 WBC 19.4 H (3.8-10.6) k/uL RBC 5.20 (4.30-5.90) m/uL Hgb 13.6 (13.0-17.5) gm/dL Hct 39.7 (39.0-53.0) % MCV 76.2 L (80.0-100.0) fL MCH 26.2 (25.0-35.0) pg MCHC 34.3 (31.0-37.0) g/dL RDW 14.5 (11.5-15.5) % Plt Count 224 (150-450) k/uL Neutrophils % 86 % Lymphocytes % 5 % Monocytes % 7 % Eosinophils % 1 % Basophils % 0 % Neutrophils # 16.6 H (1.3-7.7) k/uL Lymphocytes # 1.1 (1.0-4.8) k/uL Monocytes # 1.3 H (0-1.0) k/uL Eosinophils # 0.1 (0-0.7) k/uL Basophils # 0.0 (0-0.2) k/uL Microcytosis Slight Sodium 134 L (137-145) mmol/L Potassium 3.2 L (3.5-5.1) mmol/L Chloride 91 L (98-107) mmol/L Carbon Dioxide 28 (22-30) mmol/L Anion Gap 15 mmol/L BUN 14 (9-20) mg/dL Creatinine 1.29 H (0.66-1.25) mg/dL Est GFR (CKD-EPI)AfAm 84 (>60 ml/min/1.73 sqM) Est GFR (CKD-EPI)NonAf 73 (>60 ml/min/1.73 sqM) Glucose 124 H (74-99) mg/dL Plasma Lactic Acid [place] 1.5 (0.7-2.0) mmol/L Calcium 9.2 (8.4-10.2) mg/dL Total Bilirubin 0.7 (0.2-1.3) mg/dL AST 26 (17-59) U/L ALT 17 L (21-72) U/L Alkaline Phosphatase 64 (38-126) U/L Total Protein 8.2 (6.3-8.2) g/dL Albumin 4.3 (3.5-5.0) g/dL Lipase 27 (23-300) U/L Urine Color Urine Appearance (Clear) Urine pH (5.0-8.0) Ur Specific [place] (1.001-1.035) Urine Protein (Negative) Urine Glucose (UA) (Negative) Urine Ketones (Negative) Urine Blood (Negative) Urine Nitrite (Negative) Urine Bilirubin (Negative) Urine Urobilinogen (<2.0) mg/dL Ur Leukocyte Esterase (Negative) Urine RBC (0-5) /hpf Urine WBC (0-5) /hpf Urine WBC Clumps (None) /hpf Urine Bacteria (None) /hpf Urine Mucus (None) /hpf 07/02/19 Range/Units 13:27 WBC (3.8-10.6) k/uL RBC (4.30-5.90) m/uL Hgb (13.0-17.5) gm/dL Hct (39.0-53.0) % MCV (80.0-100.0) fL MCH (25.0-35.0) pg MCHC (31.0-37.0) g/dL RDW (11.5-15.5) % Plt Count (150-450) k/uL Neutrophils % % Lymphocytes % % Monocytes % % Eosinophils % % Basophils % % Neutrophils # (1.3-7.7) k/uL Lymphocytes # (1.0-4.8) k/uL Monocytes # (0-1.0) k/uL Eosinophils # (0-0.7) k/uL Basophils # (0-0.2) k/uL Microcytosis Sodium (137-145) mmol/L Potassium (3.5-5.1) mmol/L Chloride (98-107) mmol/L Carbon Dioxide (22-30) mmol/L Anion Gap mmol/L BUN (9-20) mg/dL Creatinine (0.66-1.25) mg/dL Est GFR (CKD-EPI)AfAm (>60 ml/min/1.73 sqM) Est GFR (CKD-EPI)NonAf (>60 ml/min/1.73 sqM) Glucose (74-99) mg/dL Plasma Lactic Acid Fermin (0.7-2.0) mmol/L Calcium (8.4-10.2) mg/dL Total Bilirubin (0.2-1.3) mg/dL AST (17-59) U/L ALT (21-72) U/L Alkaline Phosphatase (38-126) U/L Total Protein (6.3-8.2) g/dL Albumin (3.5-5.0) g/dL Lipase (23-300) U/L Urine Color Dark Yellow Urine Appearance Cloudy (Clear) Urine pH 6.0 (5.0-8.0) Ur Specific [place] 1.011 (1.001-1.035) Urine Protein 2+ H (Negative) Urine Glucose (UA) Negative (Negative) Urine Ketones Negative (Negative) Urine Blood Moderate H (Negative) Urine Nitrite Positive (Negative) Urine Bilirubin Negative (Negative) Urine Urobilinogen <2.0 (<2.0) mg/dL Ur Leukocyte Esterase Large H (Negative) Urine RBC 13 H (0-5) /hpf Urine WBC >182 H (0-5) /hpf Urine WBC Clumps Many H (None) /hpf Urine Bacteria Moderate H (None) /hpf Urine Mucus Rare H (None) /hpf Critical Care Time Critical Care Time: Yes Total Critical Care Time: 35 Disposition Clinical Impression: Sepsis, Fever, Pyelonephritis Disposition: OTHER INSTITUTION NOT DEFINED Condition: Stable Is patient prescribed a controlled substance at d/c from ED?: No Referrals: Yo Tejeda MD [Primary Care Provider] - 1-2 days Time of Disposition: 15:54 Preliminary Cause of : Transfer to [facility] - Out of Hospital Transfer - Req. Specs Out of Hospital Transfer - Requested Specifics: Other Emergency Center (Transfer to [facility])
[2019-07-02 13:11] LABS: Albumin 4.3 g/dL (3.5-5.0); Calcium 9.2 mg/dL (8.4-10.2); Potassium 3.2 mmol/L (3.5-5.1); Total Bilirubin 0.7 mg/dL (0.2-1.3); Total Protein 8.2 g/dL (6.3-8.2)
[2019-07-02 13:33] LABS: Basophils % (A) 0 %; Eosinophils # (A) 0.1 k/uL (0-0.7); Eosinophils % (A) 1 %; HCT 39.7 % (39.0-53.0); HGB 13.6 gm/dL (13.0-17.5); Lymphocytes # (A) 1.1 k/uL (1.0-4.8); Lymphocytes % (A) 5 %; MCH 26.2 pg (25.0-35.0); MCHC 34.3 g/dL (31.0-37.0); MCV 76.2 fL (80.0-100.0); Mean Platelet Volume 8.6; Microcytosis Slight; Monocytes # (A) 1.3 k/uL (0-1.0); Monocytes % (A) 7 %; Neutrophils # (A) 16.6 k/uL (1.3-7.7); Neutrophils % (A) 86 %; Platelet Count 224 k/uL (150-450); RDW 14.5 % (11.5-15.5); WBC 19.4 k/uL (3.8-10.6)
--- NOTE | 2019-07-02 13:46 | XR ---
EXAMINATION TYPE: XR KUB DATE OF EXAM: 07/02/2019 1:36 PM CLINICAL HISTORY: Abdominal pain. History of Crohn's disease and left nephrostomy tube TECHNIQUE: Single upright image of the abdomen is obtained. COMPARISON: 08/01/2018 FINDINGS: Left nephrostomy tube is seen with overlying bandaging. No dilated large or small bowel. So me air-fluid levels noted within the low pelvis are seen however physiologic in number within nondila sabiha bowel. Lung bases are well aerated and osseous structures are intact. IMPRESSION: Few air-fluid levels in the pelvis, likely mild ileus with no dilated bowel.
[2019-07-02 13:47] LABS: Appearance,Urine Cloudy (Clear); Bacteria,Urine Moderate /hpf; Bilirubin,Urine Negative (Negative); Blood,Urine Moderate (Negative); Color,Urine Dark Yellow; Glucose,Urine (UA) Negative (Negative); Ketones,Urine Negative (Negative); Leukocyte Esterase,Urine Large (Negative); Mucus,Urine Rare /hpf; Nitrite,Urine Positive (Negative); Protein,Urine 2+ (Negative); RBC,Urine 13 /hpf (0-5); Specific Gravity,Urine 1.011 (1.001-1.035); Urobilinogen,Urine <2.0 mg/dL (<2.0); WBC,Urine >182 /hpf (0-5)
[2019-07-02] MEDS ORDERED: SODIUM CHLORIDE 0.9% 1,000 ML IV ONE (13:57)
--- NOTE | 2019-07-02 15:02 | CT ---
EXAMINATION TYPE: CT abdomen pelvis w con DATE OF EXAM: 07/02/2019 COMPARISON: 04/16/2019 HISTORY: Post OP colostomy reversal February 2019, drain placement in Mar 2019, Generalized pain with diarrhea for [address] DLP: 763.8 mGycm Automated exposure control for dose reduction was used. TECHNIQUE: Helical acquisition of images was performed from the lung bases through the pelvis. CONTRAST: Performed without Oral Contrast and with IV Contrast, patient injected with 100 mL of Isovue 300. FINDINGS: LUNG BASES: Minimal bibasilar subsegmental dependent atelectasis. LIVER/GB: No significant abnormality is appreciated. Small calculus is seen in the folder gallbladder neck. PANCREAS: No significant abnormality is seen. SPLEEN: No significant abnormality is seen. ADRENALS: No significant abnormality is seen. KIDNEYS: Percutaneous left ureteral stent is seen. The left kidney is enlarged and edematous with del ayed enhancement of the left kidney in comparison to the right. There is also uroepithelial thickenin g of the proximal ureter. No hydronephrosis. Subtle perinephric fat stranding. There is also subtle s triated nephrogram pattern on the left. This is best seen on liver windows. No perinephric fluid denny ection to suggest abscess. Right kidney is unremarkable. FREE AIR: No free air is visualized. ADENOPATHY: No greater than 1 cm short axis, within the abdomen or pelvis. REPRODUCTIVE ORGANS: No significant abnormality is seen URINARY BLADDER: No significant abnormality is seen. OSSEOUS STRUCTURES: No significant abnormality is seen. BOWEL: At the anastomotic site of the distal sigmoid colon there are 2 loops of bowel seen but appea r to connect. Sinus tract is possible in this patient with Crohn's disease. This could be further chencho luated with oral contrast. This is seen on axial image 72 through 74. There is minimal reversal of th e left-sided ostomy with new small bowel containing hernia at the site of ostomy reversal. Hernia nec k measures 1.4 cm. Correlate for reducibility. Diastases recti is seen. Surgical sutures are seen in the right lower quadrant. IMPRESSION: 1. ASYMMETRIC ENLARGEMENT AND ENHANCEMENT OF THE LEFT KIDNEY WITH STRIATED NEPHROGRAM. THIS MOST COMM ONLY RELATES TO PYELONEPHRITIS. THERE IS ALSO UROEPITHELIAL THICKENING, LIKELY INFECTIOUS. 2. INCISIONAL HERNIA AT THE PRIOR OSTOMY SITE IN THE LEFT MID ABDOMEN CONTAINING LOOPS OF MATTED SMAL L BOWEL. CORRELATE FOR REDUCIBILITY.
[2019-07-02] MEDS ORDERED: ACETAMINOPHEN TAB 500 MG TAB PO STA (15:13)
[2019-07-02 15:17] VITALS: PULSE 85; RESP 18
[2019-07-02] MEDS ORDERED: CEFEPIME 2 GM in SODIUM CHLORIDE 0.9% 100 ML IVPB STA (15:25)
[2019-07-02] MEDS ORDERED: SODIUM CHLORIDE 0.9% 1,000 ML IV SCH (16:00)
[2019-07-02 17:19] VITALS: BP 132/88; TEMP 100.7
== END 2019-07-02 17:24 | disposition other institution (70) ==
LOC: EC 12:15
DX: A41.9 Sepsis, unspecified organism (principal); N12 Tubulo-interstitial nephritis, not specified as acute or chronic; Z79.899 Other long term (current) drug therapy; Z93.6 Other artificial openings of urinary tract status
CPT/HCPCS: 36415; 80053; 83605; 83690; 85025; 81001; 87040; 74018; 74177; 99291; 96365; 96375 ×2; 96361 ×3; J2405; J0692; J1170; Q9967

== ENCOUNTER 2019-08-29 16:20 | Emergency (ER) | payer OTHER ==
[2019-08-29] MEDS ORDERED: SODIUM CHLORIDE 0.9% 1,000 ML IV STA (16:36)
[2019-08-29] MEDS ORDERED: ACETAMINOPHEN TAB 500 MG TAB PO STA (16:36)
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
--- NOTE | 2019-08-29 17:17 | XR ---
EXAMINATION TYPE: XR chest 2V DATE OF EXAM: 08/29/2019 COMPARISON: 04/16/2019 HISTORY: Fever TECHNIQUE: Frontal and lateral views of the chest are obtained. FINDINGS: There is no focal air space opacity, pleural effusion, or pneumothorax seen. The cardiac silhouette size is within normal limits. The osseous structures are intact. Tubing overlies the lef t upper quadrant. IMPRESSION: No acute cardiopulmonary process.
[2019-08-29 17:25] LABS: ALT 7 U/L (4-49); AST 18 U/L (17-59); African American GFR (CKD) >90 (>60 ml/min/1.73 sqM); Albumin 4.1 g/dL (3.5-5.0); Alkaline Phosphatase 58 U/L (38-126); Anion Gap 11 mmol/L; Blood Urea Nitrogen 15 mg/dL (9-20); Calcium 9.3 mg/dL (8.4-10.2); Carbon Dioxide 28 mmol/L (22-30); Chloride 95 mmol/L (98-107); Glucose 96 mg/dL (74-99); Non-African American GFR(CKD) 78 (>60 ml/min/1.73 sqM); Sodium 134 mmol/L (137-145); Total Bilirubin 0.6 mg/dL (0.2-1.3); Total Protein 7.8 g/dL (6.3-8.2)
[2019-08-29 17:29] LABS: Appearance,Urine Cloudy (Clear); Bacteria,Urine Rare /hpf; Bilirubin,Urine Negative (Negative); Blood,Urine Moderate (Negative); Color,Urine Yellow; Glucose,Urine (UA) Negative (Negative); Ketones,Urine Negative (Negative); Leukocyte Esterase,Urine Large (Negative); Mucus,Urine Rare /hpf; Nitrite,Urine Negative (Negative); PH, Urine 6.5 (5.0-8.0); Protein,Urine 1+ (Negative); RBC,Urine 18 /hpf (0-5); Specific Gravity,Urine 1.015 (1.001-1.035); Squamous Epithelial Cell,Urine <1 /hpf (0-4); Urobilinogen,Urine <2.0 mg/dL (<2.0); WBC,Urine >182 /hpf (0-5)
[2019-08-29] MEDS ORDERED: OSELTAMIVIR 75 MG CAP PO STA (17:38)
[2019-08-29] MEDS ORDERED: CEFEPIME 2 GM in SODIUM CHLORIDE 0.9% 100 ML IVPB STA (17:52)
[2019-08-29] MEDS ORDERED: VANCOMYCIN IV PER PHARMACY 1 EACH MISC MISCELLANE PRN (17:52)
[2019-08-29 17:54] LABS: HCT 45.3 % (39.0-53.0); HGB 15.4 gm/dL (13.0-17.5); MCH 25.9 pg (25.0-35.0); MCHC 33.9 g/dL (31.0-37.0); MCV 76.3 fL (80.0-100.0); Mean Platelet Volume 8.8; Microcytosis Slight; Platelet Count 233 k/uL (150-450); RBC 5.93 m/uL (4.30-5.90); RDW 14.3 % (11.5-15.5); WBC 12.5 k/uL (3.8-10.6)
[2019-08-29] MEDS ORDERED: VANCOMYCIN 1,500 MG in SODIUM CHLORIDE 0.9% 250 ML IVPB STA (17:57)
[2019-08-29 18:05] LABS: Lymphocytes # (M) 0.88 k/uL (1.0-4.8); Neutrophils # (M) 10.63 k/uL (1.3-7.7); Neutrophils % (M) 85 %; Nucleated Red Blood Cells 0 /100 WBC (0-0); Total Cells Counted 100
[2019-08-29 18:13] VITALS: RESP 18
[2019-08-29] MEDS ORDERED: SODIUM CHLORIDE 0.9% 1,000 ML IV SCH (19:45)
[2019-08-29 20:26] VITALS: BP 113/56; PULSE 94; TEMP 102.4
[2019-08-30] MEDS ORDERED: VANCOMYCIN 1,500 MG in SODIUM CHLORIDE 0.9% 250 ML IVPB SCH (06:00)
== END 2019-08-29 20:20 | disposition other institution (70) ==
LOC: EC 16:20
DX: N12 Tubulo-interstitial nephritis, not specified as acute or chronic (principal); J11.1 Influenza due to unidentified influenza virus with other respiratory manifestations; R82.998 Other abnormal findings in urine; F17.200 Nicotine dependence, unspecified, uncomplicated; Z79.899 Other long term (current) drug therapy; Z93.6 Other artificial openings of urinary tract status; Z87.440 Personal history of urinary (tract) infections; Z96.0 Presence of urogenital implants; Z98.890 Other specified postprocedural states; Z87.19 Personal history of other diseases of the digestive system
CPT/HCPCS: 36415; 80053; 83605; 85025; 81001; 87040; 87086; 87077; 87186; 87502; 71046; 99285; 96365; 96367; 96366; 96361; J3370; J0692

== ENCOUNTER → 2020-03-08 | Outpatient (CLI) | payer OTHER ==
[2020-03-08 10:53] LABS: HCT 46.2 % (39.0-53.0); HGB 14.8 gm/dL (13.0-17.5); MCH 26.4 pg (25.0-35.0); MCHC 32.1 g/dL (31.0-37.0); MCV 82.2 fL (80.0-100.0); Mean Platelet Volume 8.3; Platelet Count 245 k/uL (150-450); RBC 5.61 m/uL (4.30-5.90); RDW 13.9 % (11.5-15.5); WBC 7.5 k/uL (3.8-10.6)
[2020-03-08 16:47] LABS: African American GFR (CKD) 83.1 (60.0-200.0); Albumin 4.6 g/dL (3.80-4.90); Albumin/Globulin Ratio 1.77 (1.60-3.17); BUN/Creat Ratio 13.85 Ratio (12.00-20.00); C Reactive Protein 1.8 mg/dL (0.0-0.8); Calcium 9.8 mg/dL (8.7-10.3); Globulin 2.6 g/dL (1.6-3.3); Non-African American GFR(CKD) 71.7 (60.0-200.0); Potassium 4.6 mmol/L (3.5-5.5); Total Bilirubin 0.4 mg/dL (0.3-1.2); Total Protein 7.2 g/dL (6.2-8.2)
[2020-03-08 17:59] LABS: Erythrocyte Sedimentation Rate 7 mm/Hr (0-15)
== END | disposition home or self-care (01) ==
LOC: LABWHC1 09:33
PROVIDERS: ATTEND Internal Medicine
DX: K50.812 Crohn's disease of both small and large intestine with intestinal obstruction (principal)
CPT/HCPCS: 36415; 80053; 85027; 85652; 86140

== ENCOUNTER → 2020-11-23 | Outpatient (CLI) | payer BC ==
[2020-11-23 15:14] LABS: HCT 46.5 % (39.6-50.0); HGB 15.5 g/dL (13.0-17.0); MCH 27.4 pg (27.0-32.0); MCHC 33.3 g/dL (32.0-37.0); MCV 82.3 fL (80.0-97.0); Mean Platelet Volume 11.1 fL (9.5-12.2); Platelet Count 250 X 10*3/uL (140-440); RBC 5.65 X 10*6/uL (4.40-5.60); RDW 12.3 % (11.5-14.5); WBC 8.35 X 10*3/uL (4.50-10.00)
[2020-11-23 18:04] LABS: Erythrocyte Sedimentation Rate 6 mm/Hr (0-15)
[2020-11-23 21:27] LABS: Albumin 4.8 g/dL (3.80-4.90); Albumin/Globulin Ratio 1.85 (1.60-3.17); Anion Gap 9.7 mmol/L (4.00-12.00); BUN/Creat Ratio 9.29 Ratio (12.00-20.00); C Reactive Protein 0.8 mg/dL (0.0-0.8); Calcium 9.8 mg/dL (8.7-10.3); Carbon Dioxide 26.3 mmol/L (21.6-31.8); Globulin 2.6 g/dL (1.6-3.3); Non-African American GFR(CKD) 65.5 (60.0-200.0); Potassium 5.1 mmol/L (3.5-5.5); Total Bilirubin 0.7 mg/dL (0.3-1.2); Total Protein 7.4 g/dL (6.2-8.2)
== END | disposition home or self-care (01) ==
LOC: LABWHC1 08:11
PROVIDERS: ATTEND Internal Medicine
DX: K50.812 Crohn's disease of both small and large intestine with intestinal obstruction (principal)
CPT/HCPCS: 36415; 80053; 83993; 85027; 85652; 86140

== ENCOUNTER 2024-04-12 10:11 | Emergency (ER) | payer BC, OTHER ==
[2024-04-12 10:24] VITALS: RESP 18
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
--- NOTE | 2024-04-12 11:07 | XR ---
EXAMINATION TYPE: XR foot complete RT DATE OF EXAM: 04/12/2024 COMPARISON: None HISTORY: Injury, pain and swelling TECHNIQUE: 3 view right foot FINDINGS: May be a nondisplaced fracture of the proximal metaphyseal fourth metatarsal. Alignment is preserved. No additional areas suspicious for fracture is evident. Joint spaces are preserved. Soft tissues appear normal IMPRESSION: 1. Clinical consideration for a nondisplaced proximal fourth metacarpal tarsal fracture. [facility], , 04/12/2024 11:04 AM
--- NOTE | 2024-04-12 11:09 | XR ---
EXAMINATION TYPE: XR ankle complete RT DATE OF EXAM: 04/12/2024 COMPARISON: None HISTORY: Rolled ankle, pain TECHNIQUE: 3 view right ankle FINDINGS: There is an oblique fracture of the distal metaphyseal fibula. The ankle mortise appears in tact. There is soft tissue swelling over the lateral malleolus. There is some lucency which does not appear to extend out of the cortex in the posterior tibia. Follow-up can be performed. No additional fractures evident. IMPRESSION: 1. Oblique fracture distal metaphyseal fibula with overlying soft tissue swelling lateral malleolus. 2. Nondisplaced posterior tibial fracture is not excluded. This Could be artifact. Follow-up can be p erformed. [facility], , 04/12/2024 11:07 AM
[2024-04-12 11:58] VITALS: BP 134/78; PULSE 73; TEMP 97.9
== END 2024-04-12 12:01 | disposition home or self-care (01) ==
LOC: EC 10:11
CPT/HCPCS: 29515; 99283

== ENCOUNTER 2024-04-30 07:31 | Day surgery (SDC) | payer BC, OTHER ==
[2024-04-29 09:22] VITALS: BMI 29.1
[2024-04-30] MEDS ORDERED: SCOPOLAMINE 1 MG/72 HR PATCH TRANSDERM ONE (07:44)
[2024-04-30] MEDS ORDERED: HYDROmorphone 0.5 MG/0.5 ML SYRINGE IVP PRN (07:44)
[2024-04-30 08:10] VITALS: RESP 16
[2024-04-30] MEDS: ONDANSETRON 4 MG/2 ML VIAL IVP ONE (08:24)
[2024-04-30] MEDS: LACTATED RINGERS 1,000 ML IV SCH (08:24)
[2024-04-30] MEDS: DEXAMETHASONE SOD PHOSPHATE 4 MG/ML 1 ML VIAL IV ONE (08:24)
[2024-04-30] MEDS: fentaNYL (PF) 50 MCG/ML 2 ML AMP IVP PRN (08:34)
[2024-04-30] MEDS: MIDAZOLAM 2 MG/2 ML VIAL IV PRN (08:34)
--- NOTE | 2024-04-30 08:45 | P.ANPRN ---
Procedure Note - Anesthesia - Nerve Block Performed Right Popliteal Single Time Out Performed: Yes Date of Procedure: 04/30/24 Procedure Start Time: 08: Procedure Stop Time: 08:44 Location of Patient: PreOp Indication: Acute Post-Operative Pain, Requested by Surgeon Sedation Type: Sedate with meaningful contact maintained Preparation: Sterile Prep, Sterile Dressing Position: Left Lateral Catheter: None Needle Types: Facet Needle Gauge: 20 Ultrasound used to visualize needle placement: Yes Ultrasound used to observe medication spread: Yes Injectate: 0.5% Ropivacaine (see comment for volume) (30 ml + decadron 4 mg) Blood Aspirated: No Pain Paresthesia on Injection Noted: No Resistance on Injection: Normal Image Stored and Saved: Yes Events: Uneventful and Well Tolerated
[2024-04-30] MEDS ORDERED: LIDOCAINE 1% INJ 10MG/ML (20 ML MDV) ONE (08:54)
[2024-04-30] MEDS ORDERED: PROPOFOL 10 MG/ML 20 ML VIAL IV ONE (08:54)
[2024-04-30] MEDS: IV FLUID CONTINUATION 1,000 ML IV ONE (08:55)
[2024-04-30] MEDS: ceFAZolin 1,000 MG in SODIUM CHLORIDE 0.9% 1,000 ML IRRIGATION ONE (08:57)
--- NOTE | 2024-04-30 09:48 | XR ---
Fluoroscopy History: DISPLACED MOTLEY-B FRACTURE OF LATERAL MALLEOLUS RT. ANKLE ORIF HUFFMAN 14 SEC FL .1333 [facility], , 04/30/2024 9:46 AM
--- NOTE | 2024-04-30 09:52 | FL ---
Fluoroscopy History: DISPLACED MOTLEY-B FRACTURE OF LATERAL MALLEOLUS RT. ANKLE ORIF HUFFMAN 14 SEC FL .1333 [facility], , 04/30/2024 9:50 AM
[2024-04-30 10:03] VITALS: TEMP 97.3
--- NOTE | 2024-04-30 10:04 | P.OP ---
Date of Procedure: 04/30/24 Preoperative Diagnosis: displaced lateral malleolar fracture right ankle Postoperative Diagnosis: same Procedure(s) Performed: open reduction with internal fixation right lateral malleolar fracture Implants: [place] 3-hole anatomic lateral malleolar plate with associated 3.5 mm locking and nonlocking screws x 6 Anesthesia: ERIC Surgeon: Galdino Mckeon Estimated Blood Loss (ml): 2 Pathology: none sent Condition: stable Disposition: PACU Description of Procedure: Prior to the patient being brought to the operating room, anesthesia administered a nerve block on the right lower extremity. The patient was brought into the operative room and placed on table in supine position. Timeout was taken to confirm correct patient identifiers, correct laterality of surgery, and correct procedure. Once all staff in the room were in agreement with the timeout, the patient was induced and placed under general anesthesia. A well- padded tourniquet was placed on the right thigh and a wedge underneath the right hip to internally rotate the right leg. The right leg was then prepped and draped in usual manner. The leg was tingling irrigated with an Esmarch bandage and then the tourniquet was inflated to 250 mmHg. Inches directed over the lateral malleolus where a straight linear incision was made along the midline. The incision was deepened under the subcutaneous tissue careful to identify, avoid, and retract any neurovascular structures and cauterize any bleeding vessels. Dissection was carried down to level of the periosteum. A linear periosteal incision was madetissues were reflected anteriorly and posteriorly to expose the fracture. The soft tissue and hematoma were evacuated from between the fracture fragments. Bone reduction forceps were utilized to rotate and bring the fracture back into alignment. Once the fracture was aligned, it was clamped in place. Fluoroscopy confirmed the proper position of the fracture on AP and lateral views. A 3.5 mm nonlocking cortical screw was then used as an interfragmentary screw, utilizing lag technique, across the fracture site. There was excellent bone purchase with the screw and the fracture was compressed well. Fluoroscopy confirmed the proper placement of the as well as maintain alignment of the fracture. A Ernst precontoured lateral malleolar plate was then positioned and adjusted under fluoroscopy until it was aligned appropriately. The plate was then temporarily fixated. Locking screws were placed in the most proximal 2 holes of the plate. Distal locking screws were then placed into the lateral malleolus. Drilling for the screws is done under direct fluoroscopic visualization so that the drill bit did not enter the lateral gutter of the ankle joint. The distal screw was a compression screw to contour the plate and the other 2 screws were locking screws. Fluoroscopic imaging showed that the plate was properly aligned and the fracture well reduced. Under live fluoroscopic visualization external rotation and eversion of the ankle were done to assess the syndesmosis. It was noted that there was no widening of the medial gutter or separation of the syndesmosis. The wound was thoroughly irrigated with antibiotic saline. Deep closure was done with 2-0 Vicryl. Subcu closure was done with 4-0 Monocryl. Skin closure was done with tatum. An Arthrex jumpstart dressing was placed over the incision and then a bulky dry dressings applied to the right ankle. The tourniquet was released and capillary refill return to all digits on the right foot. Then the patient was placed in a below-knee fracture boot. Anesthesia was reversed and the patient was taken to recovery with vital signs stable.
[2024-04-30 11:56] VITALS: BP 139/89; PULSE 78
== END 2024-04-30 12:25 | disposition home or self-care (01) ==
LOC: OR 07:31
PROVIDERS: ATTEND Podiatrist